=== PATIENT | male | born 1925 | race Caucasian/White ===

== ENCOUNTER 2017-02-10 16:34 | Inpatient (IN) | payer MEDICARE ==
[~2017-02-10] VITALS: Ht 170.2 cm; Wt 56.0 kg
[~2017-02-10 16:34] MED LIST: DEPA250T PO; DIOV160T60 PO; DONE5TAB14 PO; FISHCAP; PRAV20 PO; RIVA15 PO
[2017-02-10 16:42] VITALS: BP 193/91; PULSE 96; RESP 17; TEMP 98.4; O2SAT 94
[2017-02-10] MEDS ORDERED: SODIUM CHLORIDE 0.9% FLUSH 10 ML FLUSH IVF PRN (16:45)
--- NOTE | 2017-02-10 16:45 | PD ---
HPI Chief Complaint: Altered Mental Status Time Seen by Provider: 16:45 Travel History International Travel<30 days: No Contact w/Intl Traveler<30days: No Traveled to known affect area: No History of Present Illness HPI 89-year-old male presents to emergency department via EMS coming from the [facility], with reports of change in mental status. Patient has history of CVA 2 with a history of A. fib. Patient recently hospitalized at [facility] for increasing falls at home according to the note that I read. Patient reportedly has had altered mental status since yesterday. Patient has history of dementia. Patient does not respond verbally, but will respond to commands. Patient is moving all extremities, but shows pain with movement of the right shoulder. Further history is unable to be obtained from the patient himself. Patient is allergic to iodine which causes anaphylaxis. PFSH Past Medical History Hx Anticoagulant Therapy: Yes (COUMADIN DAILY) Arthritis: No Asthma: No Autoimmune Disease: No Blood Disorders: No Anxiety: No Depression: No Heart Rhythm Problems: No Cancer: Yes (PROSTATE) Cardiovascular Problems: Yes (htn on meds) High Cholesterol: Yes Chemotherapy: Yes (2014 - PROSTATE CA) Chest Pain: No Congestive Heart Failure: No COPD: No Cerebrovascular Accident: Yes (X2 LAST ONE 2 YEARS AGO) Diabetes: No (diet control) Diminished Hearing: Yes Endocrine: No Gastrointestinal Disorders: No GERD: No Genitourinary: No Headaches: No Hiatal Hernia: No Hypertension: Yes Immune Disorder: No Implanted Vascular Access Dvce: No Kidney Stones: No Musculoskeletal: No Neurologic: Yes (HX OF TIA 7 YEARS AGO) Psychiatric: No Reproductive: No Respiratory: No Immunizations Current: No Radiation Therapy: Yes Renal Failure: No Seizures: No Sickle Cell Disease: No Sleep Apnea: No Thyroid Disease: No Triglycerides - High: Yes Ulcer: No Past Surgical History Abdominal Surgery: No AICD: No Arteriovenous Shunt: No Cardiac Surgery: No Ear Surgery: No Endocrine Surgery: No Eye Surgery: Yes (R EYE CATARACT EXTRACTION) Genitourinary Surgery: No Gynecologic Surgery: No Insulin Pump: No Joint Replacement: No Neurologic Surgery: No Pacemaker: No Thoracic Surgery: No Other Surgery: Yes (VEIN STRIPPING BOTH LEGS) Social History Alcohol Use: Yes (WINE DAILY 1 GLASS DAILY) Tobacco Use: No Substance Use: No Allergies-Medications (Allergen,Severity, Reaction): Coded Allergies: Iodine (Verified Allergy, Severe, Anaphylaxis, 02/10/17) Reported Meds & Prescriptions Reported Meds & Active Scripts Active Reported Valsartan 160 Mg Tab 160 Mg PO DAILY Probiotic (Lactobacillus Acidophilus) 1 Cap Cap 1 Cap PO DAILY Pravastatin 20 Mg Tab 20 Mg PO HS Gabapentin 300 Mg Cap 300 Mg PO DAILY Donepezil 5 Mg Tab 5 Mg PO HS Depakote DR (Divalproex Sodium) 250 Mg Tabdr 250 Mg PO HS Cardizem (Diltiazem HCl) 30 Mg Tab 30 Mg PO QID Vitamin D3 (Cholecalciferol) 2,000 Unit Tab 2,000 Units PO DAILY Review of Systems ROS Limitations: Clinical Condition, Altered Mental Status, Unresponsive General / Constitutional: No: Fever Eyes: No: Visual changes HENT: No: Headaches Cardiovascular: No: Chest Pain or Discomfort Respiratory: No: Shortness of Breath Gastrointestinal: No: Abdominal Pain Genitourinary: No: Dysuria Musculoskeletal: No: Pain Skin: No Rash Neurologic: No: Weakness Psychiatric: No: Depression Endocrine: No: Polydipsia Hematologic/Lymphatic: No: Easy Bruising Physical Exam Exam Limitations: Altered Mental Status Narrative GENERAL: Patient does not appear in acute distress. SKIN: Warm and dry. Normal color. Poor turgor. Tenting present. HEAD: Atraumatic. Normocephalic. EYES: Pupils equal and round. No scleral icterus. No injection or drainage. ENT: No nasal bleeding or discharge. Mucous membranes pink and very dry. Pharynx is clear. Airway is patent. NECK: Trachea midline. No JVD. Neck is supple. CARDIOVASCULAR: Irregular rate and rhythm. No murmurs appreciated. RESPIRATORY: No accessory muscle use. Clear to auscultation. Breath sounds equal bilaterally. GASTROINTESTINAL: Abdomen soft, non-tender, nondistended. Hepatic and splenic margins not palpable. MUSCULOSKELETAL: Extremities without clubbing, cyanosis, or edema. No obvious deformities. Patient winces with pain with movement or palpation of the right anterior shoulder which does not appear dislocated or fractured, and is without significant effusion. No crepitus is appreciated. Patient also winces with pain with palpation of the left lower anterior thorax. Area is without specific signs of trauma or crepitus or deformity. NEUROLOGICAL: Awake and alert. No obvious cranial nerve deficits. Motor grossly within normal limits. Five out of 5 muscle strength in the arms and legs. Patient is nonverbal. PSYCHIATRIC: Cannot be determined based on present condition.. Data Data Last Documented VS Vital Signs Date Time Temp Pulse Resp B/P Pulse Ox O2 Delivery O2 Flow Rate FiO2 02/10/17 17:05 95 Nasal Cannula 2 02/10/17 16:42 98.4 96 17 193/91 Orders Electrocardiogram (02/10/17 16:45) Ammonia (02/10/17 16:45) Complete Blood Count With Diff (02/10/17 16:45) Comprehensive Metabolic Panel (02/10/17 16:45) Creatine Kinase (Cpk) (02/10/17 16:45) Prothrombin Time / Inr (Pt) (02/10/17 16:45) Act Partial Throm Time (Ptt) (02/10/17 16:45) Troponin I (02/10/17 16:45) Lactic Acid Sepsis Protocol (02/10/17 16:45) Urinalysis - C+S If Indicated (02/10/17 16:45) Blood Culture (02/10/17 16:45) Chest, Single Ap (02/10/17 16:45) Ct Brain W/O Iv Contrast(Rout) (02/10/17 16:45) Blood Glucose (02/10/17 16:45) Ecg Monitoring (02/10/17 16:45) Iv Access Insert/Monitor (02/10/17 16:45) Oximetry (02/10/17 16:45) Urinary Catheter Insert/Apply (02/10/17 16:45) Sodium Chloride 0.9% Flush (Ns Flush) (02/10/17 16:45) Sodium Chlorid 0.9% 500 Ml Inj (Ns 500 M (02/10/17 17:15) Shoulder, Limited(2vws) (02/10/17 17:48) Ribs, Uni (W/Exp Cxr-Min 3vw) (02/10/17 17:48) Mri Brain W/O Contrast (02/10/17 18:24) Aspirin Supp (Aspirin Supp) (02/10/17 18:45) Labs Laboratory Tests Test 02/10/17 17:00 White Blood Count 13.9 TH/MM3 Red Blood Count 5.19 MIL/MM3 Hemoglobin 15.9 GM/DL Hematocrit 44.4 % Mean Corpuscular Volume 85.5 FL Mean Corpuscular Hemoglobin 30.6 PG Mean Corpuscular Hemoglobin 35.7 % Concent Red Cell Distribution Width 13.9 % Platelet Count 273 TH/MM3 Mean Platelet Volume 7.8 FL Neutrophils (%) (Auto) 79.0 % Lymphocytes (%) (Auto) 10.5 % Monocytes (%) (Auto) 10.2 % Eosinophils (%) (Auto) 0.0 % Basophils (%) (Auto) 0.3 % Neutrophils # (Auto) 11.0 TH/MM3 Lymphocytes # (Auto) 1.5 TH/MM3 Monocytes # (Auto) 1.4 TH/MM3 Eosinophils # (Auto) 0.0 TH/MM3 Basophils # (Auto) 0.0 TH/MM3 CBC Comment DIFF FINAL Differential Comment Prothrombin Time 11.0 SEC Prothromb Time International 1.0 RATIO Ratio Activated Partial 28.7 SEC Thromboplast Time Urine Color YELLOW Urine Turbidity CLEAR Urine pH 5.5 Urine Specific [place] 1.025 Urine Protein 30 mg/dL Urine Glucose (UA) NEG mg/dL Urine Ketones 40 mg/dL Urine Occult Blood TRACE Urine Nitrite NEG Urine Bilirubin NEG Urine Urobilinogen LESS THAN 2.0 MG/DL Urine Leukocyte Esterase NEG Urine RBC 2 /hpf Urine WBC 3 /hpf Urine Mucus MOD /lpf Microscopic Urinalysis Comment CATH-CULT NOT IND Sodium Level 133 MEQ/L Potassium Level 5.0 MEQ/L Chloride Level 100 MEQ/L Carbon Dioxide Level 24.6 MEQ/L Anion Gap 8 MEQ/L Blood Urea Nitrogen 20 MG/DL Creatinine 0.97 MG/DL Estimat Glomerular Filtration 73 ML/MIN Rate Random Glucose 115 MG/DL Lactic Acid Level 1.5 mmol/L Calcium Level 8.8 MG/DL Total Bilirubin 1.0 MG/DL Aspartate Amino Transf 57 U/L (AST/SGOT) Alanine Aminotransferase 34 U/L (ALT/SGPT) Alkaline Phosphatase 77 U/L Ammonia LESS THAN 10 MCMOL/L Total Creatine Kinase 189 U/L Troponin I LESS THAN 0.02 NG/ML Total Protein 8.0 GM/DL Albumin 3.2 GM/DL [facility] Medical Decision Making Medical Screen Exam Complete: Yes Emergency Medical Condition: Yes Differential Diagnosis Sepsis. Altered mental status. Stroke. Urinary tract infection. Pneumonia. Narrative Course Patient is altered on exam. Appears very dehydrated. Labs ordered including CBC, CMP, urinalysis, cardiac panel, lactic acid. CT of the brain is ordered. Chest x-ray, x-ray of the right shoulder, and right rib x-rays. CBC shows slight leukocytosis of 13.9. CMP shows sodium 133, BUN of 20, normal creatinine of 0.97. Lactic acid is 1.5. Ammonia is less than 10. Troponin is less than 0.02 Urinalysis shows protein 30, ketones of 40, trace of occult blood, but no signs of infection. This was a catheterized specimen. Coagulation studies show PT of 11, INR 1.0. CT scan shows an evolving left VENDOR SPECIALIST stroke, as well as progressively worsening symmetric ventricular dilatation. Medical records are reviewed from [facility] which shows an MRI and CT on the fourth with no mention of possible VENDOR SPECIALIST stroke. Call was placed to Dr. French, neurology on-call, and the patient was discussed. Dr. French recommends 300 mg aspirin rectally, and MRI. 1920 hrs. call placed to the hospitalist for admission. 1930 [address] discussed with Dr. Hunt, who agreed to admit the patient. MRI pending. Consult placed for Dr. Sousa. Diagnosis Primary Impression: CVA (cerebral vascular accident) Qualified Code: I63.00 - Cerebrovascular accident (CVA) due to thrombosis of precerebral artery Admitting Information Admitting Physician Requests: Admit Condition: Stable Stef Villalpando Feb 10, 2017 16:45
[2017-02-10 16:49] VITALS: O2SAT 97
[2017-02-10] MEDS ORDERED: SODIUM CHLORID 0.9% 500 ML INJ 500 ML IV ONE (17:15)
[2017-02-10 17:31] LABS: BASOPHIL % 0.3 % (0.0-2.0); HEMATOCRIT 44.4 % (39.0-51.0); HEMO FLAGS DIFF FINAL; LYMPH % 10.5 % (9.0-44.0); LYMPHOCYTE # 1.5 TH/MM3 (1.0-4.8); MEAN CELL VOLUME 85.5 FL (80.0-100.0); MEAN CORPUSCULAR HEMOGLOBIN 30.6 PG (27.0-34.0); MEAN CORPUSCULAR HGB CONC 35.7 % (32.0-36.0); MONO % 10.2 % (0.0-8.0); PLATELET COUNT 273 TH/MM3 (150-450); RED BLOOD COUNT 5.19 MIL/MM3 (4.50-5.90); RED CELL DISTRIBUTION WIDTH 13.9 % (11.6-17.2); WHITE BLOOD COUNT 13.9 TH/MM3 (4.0-11.0)
[2017-02-10 17:36] LABS: BLOOD, URINE TRACE (NEG); GLUCOSE,URINE NEG (NEG); KETONE, URINE 40 mg/dL (NEG); MUCUS URINE MOD /lpf (OCC); NITRITE,URINE NEG (NEG); PH, URINE 5.5 (5.0-8.5); URINE COLOR YELLOW (YELLW/STRAW)
[2017-02-10 17:38] LABS: COMMENT (UR) CATH-CULT NOT IND; CULTURE IF INDICATED CATH CULTURE NOT IND
[2017-02-10 17:45] LABS: APTT (PATIENT) 28.7 SEC (24.3-30.1)
--- NOTE | 2017-02-10 17:53 | RADRPT ---
EXAM DATE/TIME: 02/10/2017 17:11 [facility] COMPARISON: CT BRAIN W/O CONTRAST, September 02, 2015, 16:27. CT BRAIN W/O CONTRAST, February 13, 2014, 16:55. INDICATIONS : Left side gaze and altered mental status. RADIATION DOSE: 69.17 CTDIvol (mGy) MEDICAL HISTORY : Stroke. SURGICAL HISTORY : Non-responsive. ENCOUNTER: Initial ACUITY: 1 day PAIN SCALE: Non-responsive LOCATION: cranial TECHNIQUE: Multiple contiguous axial images were obtained of the head. Using automated exposure control and adj ustment of the mA and/or kV according to patient size, radiation dose was kept as low as reasonably a chievable to obtain optimal diagnostic quality images. FINDINGS: There is an evolving stroke in the left CROSS ENTERPRISE INTEGRATOR territory with edema present in the left temporal and occ ipital regions. There is mild effacement of local cortical sulci. Small old stroke is present in the contralateral right occipital region and in the high convexity right parietal region. There has been continued interval progression of symmetric ventricular dilatation this finding has progressed signif icantly from the 2013 CT and then again from the 2014 CT. There is mild diminished attenuation in the periventricular white matter which is also more pronounced. There is no evidence of intracranial hemorrhage at present. There has been development of some mild disease in the left mastoid air cells. CONCLUSION: Evolving left CROSS ENTERPRISE INTEGRATOR stroke. Progressively worsening symmetric ventricular dilatation. Dayron Neely MD on February 10, 2017 at 17:46 Board Certified Radiologist. This report was verified electronically.
[2017-02-10 18:11] LABS: ALKALINE PHOSPHATASE 77 U/L (45-117); ALT (GPT) 34 U/L (12-78); ANION GAP 8 MEQ/L (5-15); AST (GOT) 57 U/L (15-37); BICARBONATE 24.6 MEQ/L (21.0-32.0); BLOOD UREA NITROGEN 20 MG/DL (7-18); CHLORIDE 100 MEQ/L (98-107); CREATINE KINASE 189 U/L (39-308); GLOMERULAR FILTRATION RATE 73 ML/MIN (>89); SODIUM (NA) 133 MEQ/L (136-145)
[2017-02-10] MEDS ORDERED: DONE5TAB7 PO (18:29)
[2017-02-10] MEDS ORDERED: LACTCAP8 PO (18:29)
[2017-02-10] MEDS ORDERED: GABA300C5 PO (18:29)
[2017-02-10] MEDS ORDERED: DILT31TA PO (18:29)
[2017-02-10] MEDS ORDERED: PRAV20TA2 PO (18:29)
[2017-02-10] MEDS ORDERED: VITA200012 PO (18:29)
[2017-02-10] MEDS ORDERED: VALS1TAB65 PO (18:29)
[2017-02-10] MEDS ORDERED: DEPA250T2 PO (18:29)
[2017-02-10] MEDS ORDERED: ASPIRIN 300 MG SUPP RECTAL ONE (18:45)
--- NOTE | 2017-02-10 18:47 | RADRPT ---
EXAM DATE/TIME: 02/10/2017 18:11 [facility] COMPARISON: No previous studies available for comparison. INDICATIONS : Patient fell at [facility]. Complains of left rib pain. MEDICAL HISTORY : Hypertension. 2 strokes. SURGICAL HISTORY : None. ENCOUNTER: Initial ACUITY: 1 day PAIN SCORE: Non-responsive. LOCATION: Left Ribs FINDINGS: Multiple views of the left ribs were performed. There is no evidence of displaced acute fracture. T here appears to be at chronic healed fracture deformity at the left eighth through 10th ribs. No dest ructive lesions or areas of acute periosteal thickening are seen. Expiratory view of the chest is ne gative for pneumothorax. The mediastinal structures are midline. There is a high riding left erick l head. Spurring is seen in the thoracic spine. CONCLUSION: No acute fracture is seen. Dayron Masters MD on February 10, 2017 at 18:42 Board Certified Radiologist. This report was verified electronically.
--- NOTE | 2017-02-10 18:56 | RADRPT ---
EXAM DATE/TIME: 02/10/2017 18:11 [facility] COMPARISON: CHEST SINGLE AP, September 02, 2015, 16:55. EXTERNAL COMPARISON : [facility] INDICATIONS : Patient fell at [facility] and complains of left flank pain. Possible syncopal episode. MEDICAL HISTORY : Hypertension. 2 strokes. SURGICAL HISTORY : None. ENCOUNTER: Initial ACUITY: 1 week PAIN SCORE: Non-responsive. LOCATION: chest FINDINGS: Lungs are focally clear. No pleural effusion is identified. Cardiomediastinal contours are satisfacto ry. The left humeral head is significant high riding concerning for rotator cuff pathology. There are degenerative changes. CONCLUSION: No acute cardiopulmonary disease Dayron Neely MD on February 10, 2017 at 18:53 Board Certified Radiologist. This report was verified electronically.
--- NOTE | 2017-02-10 18:56 | RADRPT ---
EXAM DATE/TIME: 02/10/2017 18:17 [facility] COMPARISON: No previous studies available for comparison. EXTERNAL COMPARISON : [facility] INDICATIONS : Patient fell at [facility] 1 week ago. Complains of right shoulder pain. MEDICAL HISTORY : Hypertension. 2 strokes. SURGICAL HISTORY : None. ENCOUNTER: Initial ACUITY: 1 week PAIN SCORE: Non-responsive. LOCATION: Right Shoulder FINDINGS: Two view examination of the right shoulder demonstrates no evidence of fracture or dislocation. The glenohumeral and acromioclavicular joints are maintained. Bony mineralization is normal. CONCLUSION: No acute disease. Dayron Masters MD on February 10, 2017 at 18:54 Board Certified Radiologist. This report was verified electronically.
--- NOTE | 2017-02-10 19:24 | PD ---
Data Data Last Documented VS Vital Signs Date Time Temp Pulse Resp B/P Pulse Ox O2 Delivery O2 Flow Rate FiO2 02/10/17 17:05 95 Nasal Cannula 2 02/10/17 16:42 98.4 96 17 193/91 Orders Electrocardiogram (02/10/17 16:45) Ammonia (02/10/17 16:45) Complete Blood Count With Diff (02/10/17 16:45) Comprehensive Metabolic Panel (02/10/17 16:45) Creatine Kinase (Cpk) (02/10/17 16:45) Prothrombin Time / Inr (Pt) (02/10/17 16:45) Act Partial Throm Time (Ptt) (02/10/17 16:45) Troponin I (02/10/17 16:45) Lactic Acid Sepsis Protocol (02/10/17 16:45) Urinalysis - C+S If Indicated (02/10/17 16:45) Blood Culture (02/10/17 16:45) Chest, Single Ap (02/10/17 16:45) Ct Brain W/O Iv Contrast(Rout) (02/10/17 16:45) Blood Glucose (02/10/17 16:45) Ecg Monitoring (02/10/17 16:45) Iv Access Insert/Monitor (02/10/17 16:45) Oximetry (02/10/17 16:45) Urinary Catheter Insert/Apply (02/10/17 16:45) Sodium Chloride 0.9% Flush (Ns Flush) (02/10/17 16:45) Sodium Chlorid 0.9% 500 Ml Inj (Ns 500 M (02/10/17 17:15) Shoulder, Limited(2vws) (02/10/17 17:48) Ribs, Uni (W/Exp Cxr-Min 3vw) (02/10/17 17:48) Mri Brain W/O Contrast (02/10/17 18:24) Aspirin Supp (Aspirin Supp) (02/10/17 18:45) Labs Laboratory Tests Test 02/10/17 17:00 White Blood Count 13.9 TH/MM3 Red Blood Count 5.19 MIL/MM3 Hemoglobin 15.9 GM/DL Hematocrit 44.4 % Mean Corpuscular Volume 85.5 FL Mean Corpuscular Hemoglobin 30.6 PG Mean Corpuscular Hemoglobin 35.7 % Concent Red Cell Distribution Width 13.9 % Platelet Count 273 TH/MM3 Mean Platelet Volume 7.8 FL Neutrophils (%) (Auto) 79.0 % Lymphocytes (%) (Auto) 10.5 % Monocytes (%) (Auto) 10.2 % Eosinophils (%) (Auto) 0.0 % Basophils (%) (Auto) 0.3 % Neutrophils # (Auto) 11.0 TH/MM3 Lymphocytes # (Auto) 1.5 TH/MM3 Monocytes # (Auto) 1.4 TH/MM3 Eosinophils # (Auto) 0.0 TH/MM3 Basophils # (Auto) 0.0 TH/MM3 CBC Comment DIFF FINAL Differential Comment Prothrombin Time 11.0 SEC Prothromb Time International 1.0 RATIO Ratio Activated Partial 28.7 SEC Thromboplast Time Urine Color YELLOW Urine Turbidity CLEAR Urine pH 5.5 Urine Specific [place] 1.025 Urine Protein 30 mg/dL Urine Glucose (UA) NEG mg/dL Urine Ketones 40 mg/dL Urine Occult Blood TRACE Urine Nitrite NEG Urine Bilirubin NEG Urine Urobilinogen LESS THAN 2.0 MG/DL Urine Leukocyte Esterase NEG Urine RBC 2 /hpf Urine WBC 3 /hpf Urine Mucus MOD /lpf Microscopic Urinalysis Comment CATH-CULT NOT IND Sodium Level 133 MEQ/L Potassium Level 5.0 MEQ/L Chloride Level 100 MEQ/L Carbon Dioxide Level 24.6 MEQ/L Anion Gap 8 MEQ/L Blood Urea Nitrogen 20 MG/DL Creatinine 0.97 MG/DL Estimat Glomerular Filtration 73 ML/MIN Rate Random Glucose 115 MG/DL Lactic Acid Level 1.5 mmol/L Calcium Level 8.8 MG/DL Total Bilirubin 1.0 MG/DL Aspartate Amino Transf 57 U/L (AST/SGOT) Alanine Aminotransferase 34 U/L (ALT/SGPT) Alkaline Phosphatase 77 U/L Ammonia LESS THAN 10 MCMOL/L Total Creatine Kinase 189 U/L Troponin I LESS THAN 0.02 NG/ML Total Protein 8.0 GM/DL Albumin 3.2 GM/DL MDM Supervised Visit with MAGALY: Yes Narrative Course The history, exam, and medical decision-making in the associated midlevel provider note were completed with my assistance. I reviewed and agree with the findings presented. I attest that I had a [id number] encounter with the patient on the same day, and personally performed and documented my assessment and findings in the medical record. *My assessment and Findings: This is an 89-year-old male who presents to the emergency department with a history of dementia who evidently has had a rapid decline that started yesterday. He had an MRI within the past week in the setting of frequent falls at an outside hospital which was reassuring. His reports that currently he is nonverbal which is abnormal for him. Patient follows some commands and moves all extremities but is completely aphasic. Labs were obtained which were reassuring. 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 The case was discussed with the on-call neurologist who requested a stat MRI. Patient will be admitted. Patient is likely not a TPA candidate given onset of symptoms was 24 hours ago. Valentine Arredondo MD Feb 10, 2017 19:24
[2017-02-10] MEDS ORDERED: LORazepam 2 MG/ML VIAL IV PUSH ONE (19:45)
--- NOTE | 2017-02-10 19:50 | HHI.HP ---
HPI Service [facility] Primary Care Physician Minor Saleh MD Admission Diagnosis CVA Diagnoses: (1) CVA (cerebral vascular accident) Diagnosis: Principal (2) A-fib Diagnosis: Principal (3) HTN (hypertension) Diagnosis: Principal Travel History International Travel<30 Days: No Contact w/Intl Traveler <30 Da: No Traveled to Known Affected Are: No History of Present Illness This is an 89-year-old male with a PMH of HTN, A. fib, Prostate CA and Hyperlipidemia who since the ER from [facility] secondary to worsening mental status. Per report, pt last seen normal on 02/09/17 at unknown time, today pt noted to have decline in mental status, right-sided weakness and aphasia. History limited as pt remains non-verbal and unable to provide details. Per reports, pt w/ recent hospitalization at [facility] for recurrent falls and deconditioning. CT Head/MRI Brain w/ no acute CVA per hospital records (in chart). Was d/c'd to [facility] for Rehab. On arrival, BP 218/ 94, HR 106, O2 sat 99% on RA, Afebrile. WBC 13.9. Chemistry with GFR 73 lactic Acid 1.5. Troponin negative. INR 1.0. UA negative. CT Head with evolving left HIGHWALL DRILL OPERATOR stroke, progressively worsening symmetric ventricular dilatation. CXR with no acute findings. Shoulder X-ray negative. Rib X-ray no acute fracture. Dr. French consulted by ER physician, recommended MRI Brain and ASA 300mg NV. Review of Systems Except as stated in HPI: all other systems reviewed are Neg ROS: Unable to obtain secondary to aphasia. Past Family Social History Past Medical History PMH: HTN, A. fib, Prostate CA and Hyperlipidemia Past Surgical History PAST SURGICAL HISTORY: Right Cataract Surgery, Bilateral Vein Stripping Allergies: Coded Allergies: Iodine (Verified Allergy, Severe, Anaphylaxis, 02/10/17) Family History PAST FAMILY HISTORY: Reviewed. No h/o DM or CAD Social History PAST SOCIAL HISTORY: Drinks one glass of wine daily. Negative for tobacco or drugs Physical Exam Vital Signs Vital Signs Date Time Temp Pulse Resp B/P Pulse Ox O2 Delivery O2 Flow Rate FiO2 02/10/17 17:05 95 Nasal Cannula 2 02/10/17 16:49 97 Nasal Cannula 2 02/10/17 16:42 98.4 96 17 193/91 94 Physical Exam PE: GENERAL: Elderly male in no acute distress. HEENT: PERRLA, EOMI. No scleral icterus or conjunctival pallor. No lid lag or facial droop. CARDIOVASCULAR: Regular rate and rhythm. No obvious murmurs to auscultation. No chest tenderness to palpation. RESPIRATORY: No obvious rhonchi or wheezing. Clear to auscultation. Breath sounds equal bilaterally. GASTROINTESTINAL: Abdomen soft, non-tender, nondistended. BS normal. MUSCULOSKELETAL: Extremities without clubbing, cyanosis, or edema. No obvious deformities. Right shoulder tenderness to palpation NEUROLOGICAL: Awake, alert, nonverbal, follows simple commands. No focal neurologic deficits. Moving both upper and lower extremities spontaneously. Laboratory Laboratory Tests Test 02/10/17 17:00 White Blood Count 13.9 Red Blood Count 5.19 Hemoglobin 15.9 Hematocrit 44.4 Mean Corpuscular Volume 85.5 Mean Corpuscular Hemoglobin 30.6 Mean Corpuscular Hemoglobin 35.7 Concent Red Cell Distribution Width 13.9 Platelet Count 273 Mean Platelet Volume 7.8 Neutrophils (%) (Auto) 79.0 Lymphocytes (%) (Auto) 10.5 Monocytes (%) (Auto) 10.2 Eosinophils (%) (Auto) 0.0 Basophils (%) (Auto) 0.3 Neutrophils # (Auto) 11.0 Lymphocytes # (Auto) 1.5 Monocytes # (Auto) 1.4 Eosinophils # (Auto) 0.0 Basophils # (Auto) 0.0 CBC Comment DIFF FINAL Differential Comment Prothrombin Time 11.0 Prothromb Time International 1.0 Ratio Activated Partial 28.7 Thromboplast Time Urine Color YELLOW Urine Turbidity CLEAR Urine pH 5.5 Urine Specific [place] 1.025 Urine Protein 30 Urine Glucose (UA) NEG Urine Ketones 40 Urine Occult Blood TRACE Urine Nitrite NEG Urine Bilirubin NEG Urine Urobilinogen LESS THAN 2.0 Urine Leukocyte Esterase NEG Urine RBC 2 Urine WBC 3 Urine Mucus MOD Microscopic Urinalysis Comment CATH-CULT NOT IND Sodium Level 133 Potassium Level 5.0 Chloride Level 100 Carbon Dioxide Level 24.6 Anion Gap 8 Blood Urea Nitrogen 20 Creatinine 0.97 Estimat Glomerular Filtration 73 Rate Random Glucose 115 Lactic Acid Level 1.5 Calcium Level 8.8 Total Bilirubin 1.0 Aspartate Amino Transf 57 (AST/SGOT) Alanine Aminotransferase 34 (ALT/SGPT) Alkaline Phosphatase 77 Ammonia LESS THAN 10 Total Creatine Kinase 189 Troponin I LESS THAN 0.02 Total Protein 8.0 Albumin 3.2 Date/Time Procedure Status Source Growth 02/10/17 17:05 Aerobic Blood Culture Received Blood Peripheral Pending 02/10/17 17:05 Anaerobic Blood Culture Received Blood Peripheral Pending Result Diagram: 02/10/17 1700 02/10/17 1700 Assessment and Plan Problem List: (1) CVA (cerebral vascular accident) ICD Code: I63.9 Status: Acute (2) HTN (hypertension) ICD Code: I10 Status: Acute (3) Shoulder pain ICD Code: M25.519 Status: Acute (4) A-fib ICD Code: I48.91 Status: Acute Assessment and Plan A/P: 1. CVA: per report, pt last seen normal 02/09/17, today noted to have right- sided weakness and aphasia. CT Head w/ evolving Left HIGHWALL DRILL OPERATOR infarct, images reviewed by me. Dr. French consulted by ER physician, recommends ASA 300mg NV and MRI Brain, MRI w/ areas of subacute infarct in Left HIGHWALL DRILL OPERATOR, infarct of Left Thalamus and Right Inferior Cerebellar Hemisphere w/ possible areas of petechial hemorrhage in left occipital lobe and left thalamus, images reviewed by me. Hold ASA in light of possible petechial hemorrhage. Neurology to follow. Neuro checks. PT/OT/Speech for eval/tx. NPO, IVF. 2. HTN: BP 218/94, HR 106 on arrival, currently 147/70, HR 94, will monitor, permissive HTN in light of CVA. 3. Shoulder Pain: h/o recurrent falls w/ recent admit to [facility], +grimaces w/ palpation of right shoulder, Shoulder X-ray negative for fracture, images reviewed by me. Analgesics as needed. 4. A-fib: Chronic. Per records, on Coumadin, however not on anticoagulation per review of medication list. Check Echo for possible embolic event. 5. DVT Prophylaxis: SCD/Teds. 6. Social work for d/c planning as needed. 7. Case discussed w/ ER physician at length. Physician Certification 2 Midnight Certification Type: Admission for Inpatient Services Order for Inpatient Services The services are ordered in accordance with Medicare regulations or non- Medicare payer requirements, as applicable. In the case of services not specified as inpatient-only, they are appropriately provided as inpatient services in accordance with the 2-midnight benchmark. Estimated LOS (days): 2 days is the estimated time the patient will need to remain in the hospital, assuming treatment plan goals are met and no additional complications. Post-Hospital Plan: Not yet determined Problem Qualifiers (1) CVA (cerebral vascular accident): Qualified Code: I63.00 - Cerebrovascular accident (CVA) due to thrombosis of precerebral artery Madelin Clarke MD Feb 10, 2017 19:50
[2017-02-10 20:00] VITALS: O2SAT 99
[2017-02-10] MEDS ORDERED: GLUCAGON 1 MG/ML VIAL IM/SQ PRN (20:00)
[2017-02-10] MEDS ORDERED: LORazepam 2 MG/ML VIAL IV PUSH PRN (20:00)
[2017-02-10] MEDS ORDERED: DEXTROSE 50% IN WATER 50 ML VIAL(D50) IV PUSH PRN (20:00)
[2017-02-10] MEDS: SODIUM CHLORIDE 0.9% FLUSH 10 ML FLUSH IV FLUSH SCH (20:24)
[2017-02-10] MEDS: SODIUM CHLOR 0.9% 1000 ML INJ 1,000 ML IV SCH (20:25)
[2017-02-10 20:26] VITALS: BP 218/94; PULSE 106; RESP 21; O2SAT 99
[2017-02-10] MEDS: ENALAPRILAT 1.25 MG/ML VIAL IV PRN (20:35)
--- NOTE | 2017-02-10 20:36 | RADRPT ---
EXAM DATE/TIME: 02/10/2017 19:30 [facility] COMPARISON: CT BRAIN W/O CONTRAST, February 10, 2017, 17:11. MRI BRAIN W/O CONTRAST, February 14, 2014, 8:46. INDICATIONS : Altered mental status. MEDICAL HISTORY : Hypertension. Hypercholesterolemia. Dementia. SURGICAL HISTORY : None. ENCOUNTER: Initial ACUITY: 1 day PAIN SCORE: 0/10 LOCATION: Cranial TECHNIQUE: Multiplanar, multisequence MRI of the brain was performed without contrast. FINDINGS: There is dilatation of the ventricular system and cortical sulci. There are areas of s uspected subacute infarction involving the medial left temporal lobe, left occipital lobe, left thala mus and right inferior cerebellar hemispheres. These areas are seen as abnormal on the diffusion nickie ghted images and the T2 weighted images suggesting they are subacute. There is some focal low signal seen on the gradient echo sequence at the left thalamus and in the left occipital lobe. These small areas of low signal on the gradient echo sequences could be from areas of calcification or small are as of hemorrhage. Signal abnormalities seen in these focal regions to confirm a hemorrhage is not se en on other sequences. No abnormal density was seen on the CT examination. This may represent some sm all petechial hemorrhage. Significant midline shift is not clearly appreciated. The basal cisterns are open. There are some scattered punctate areas of increased signal seen in the cerebral white mat ter on the FLAIR images. CONCLUSION: 1. Areas of subacute infarction involving the left posterior cerebral artery including the medial lef t temporal lobe and the left occipital lobe. There is also an area of infarction involving the left thalamus and the right inferior cerebellar hemisphere. There appear to be possible small areas of pe techial hemorrhage in the left occipital lobe and left thalamus. 2. Underlying edema. There is also underlying suspected small vessel ischemic change in the white ma tter with scattered areas of focal demyelination seen. Dayron Masters MD on February 10, 2017 at 20:18 Board Certified Radiologist. This report was verified electronically.
[2017-02-10] MEDS: INSULIN ASPART SUPPLEMENTAL SCALE SQ SCH (21:00)
[2017-02-10 21:22] VITALS: BP 185/88; PULSE 101; RESP 24; O2SAT 97
[2017-02-10] MEDS ORDERED: MORPHINE SULFATE 4 MG/ML INJ IV PUSH PRN (21:30)
[2017-02-10 21:54] VITALS: BP 147/70; PULSE 94; RESP 17; O2SAT 99
[2017-02-10] MEDS: MORPHINE SULFATE 4 MG/ML INJ IV PUSH PRN (21:54)
[2017-02-10] MEDS: SODIUM CHLORIDE 0.9% FLUSH 10 ML FLUSH IV FLUSH PRN (23:35)
[2017-02-11] VITALS (8 sets, daily range): BP systolic 146–227; BP diastolic 74–100; PULSE 81–106; RESP 16–22; TEMP 96–100.3; O2SAT 93–99
[2017-02-11] MEDS ORDERED: ACETAMINOPHEN 500 MG CPLT PO PRN (04:45)
[2017-02-11] MEDS: ENALAPRILAT 1.25 MG/ML VIAL IV PRN (05:15)
[2017-02-11] MEDS: MORPHINE SULFATE 4 MG/ML INJ IV PUSH PRN (05:15)
[2017-02-11] MEDS: SODIUM CHLORIDE 0.9% FLUSH 10 ML FLUSH IV FLUSH PRN (05:16)
[2017-02-11] MEDS: INSULIN ASPART SUPPLEMENTAL SCALE SQ SCH ×4 (05:26→21:00)
[2017-02-11] MEDS: ACETAMINOPHEN 650 MG SUPP RECTAL PRN (06:32)
[2017-02-11 07:41] LABS: HDL CHOLESTEROL 54.6 MG/DL (40.0-60.0); LDL CHOLESTEROL 61 MG/DL (0-99)
[2017-02-11] MEDS ORDERED: ASPIRIN 300 MG SUPP RECTAL SCH (09:00)
[2017-02-11 13:11] LABS: HEMOGLOBIN A1a 0.8 %; HEMOGLOBIN A1b 1.9 %; HEMOGLOBIN Ao 84.9 %; HEMOGLOBIN LA1C 2.1 %; HEMOGLOBIN P3 5.5 %
--- NOTE | 2017-02-11 14:09 | HHI.PR ---
Subjective Remarks Discussed with RN, per physical therapy the patient appear to have discomfort with any movement of the right elbow joint. Patient is aphasic, can follow some commands. Objective Vitals Vital Signs Date Time Temp Pulse Resp B/P Pulse Ox O2 Delivery O2 Flow Rate FiO2 02/11/17 08:00 98.4 83 18 146/74 96 02/11/17 04:00 100.1 96 20 227/92 98 02/11/17 00:30 98.0 102 20 153/94 99 02/11/17 00:00 99.3 95 18 179/84 93 02/10/17 21:54 94 17 147/70 99 Nasal Cannula 3 02/10/17 21:22 101 24 185/88 97 Nasal Cannula 3 02/10/17 20:26 106 21 218/94 99 Nasal Cannula 3 02/10/17 20:00 99 Nasal Cannula 3.00 02/10/17 17:05 95 Nasal Cannula 2 02/10/17 16:49 97 Nasal Cannula 2 02/10/17 16:42 98.4 96 17 193/91 94 I/O 02/10/17 02/10/17 02/10/17 02/11/17 02/11/17 02/11/17 07:00 15:00 23:00 07:00 15:00 23:00 Output Total 500 ml Balance -500 ml Output Urine Total 500 ml # Bowel Movements 0 Result Diagram: 02/10/17 1700 02/10/17 1700 Imaging Last Impressions Brain MRI 02/10/17 1824 Signed Impressions: Service Date/Time: Friday, February 10, 2017 19:30 - CONCLUSION: 1. Areas of subacute infarction involving the left posterior cerebral artery including the medial left temporal lobe and the left occipital lobe. There is also an area of infarction involving the left thalamus and the right inferior cerebellar hemisphere. There appear to be possible small areas of petechial hemorrhage in the left occipital lobe and left thalamus. 2. Underlying edema. There is also underlying suspected small vessel ischemic change in the white matter with scattered areas of focal demyelination seen. Dayron Masters MD Shoulder X-Ray 02/10/171747 Signed Impressions: Service Date/Time: Friday, February 10, 2017 18:17 - CONCLUSION: No acute disease. Dayron Masters MD Ribs X-Ray 02/10/171747 Signed Impressions: Service Date/Time: Friday, February 10, 2017 18:11 - CONCLUSION: No acute fracture is seen. Dayron Masters MD Head CT 02/10/17 1641 Signed Impressions: Service Date/Time: Friday, February 10, 2017 17:11 - CONCLUSION: Evolving left CRAY FISHING HAND stroke. Progressively worsening symmetric ventricular dilatation. Dayron Neely MD Chest X-Ray 02/10/175 Signed Impressions: Service Date/Time: Friday, February 10, 2017 18:11 - CONCLUSION: No acute cardiopulmonary disease Dayron Neely MD Objective Remarks GENERAL: Frail elderly male lying in bed. Awake and alert but unable to communicate. Can follow some commands CARDIOVASCULAR: Normal rate and regular rhythm without murmurs, gallops, or rubs. RESPIRATORY: Breath sounds equal and clear to auscultation bilaterally. GASTROINTESTINAL: Abdomen soft, non-tender, non-distended. Normal active bowel sounds MUSCULOSKELETAL: Extremities without cyanosis, or edema. Right medial con NEURO: Exam limited due to the patient's condition and limited ability to follow commands. Awake and alert. Aphasic. Can move all extremities but generally weak. Cannot appreciate focal weakness except for significant limitation of the right elbow due to pain. PSYCH: Calm A/P Problem List: (1) CVA (cerebral vascular accident) ICD Code: I63.9 Status: Acute (2) HTN (hypertension) ICD Code: I10 Status: Acute (3) Shoulder pain ICD Code: M25.519 Status: Acute (4) A-fib ICD Code: I48.91 Status: Acute Assessment and Plan 89-year-old detention resident admitted with: 1. CVA: per report, pt last seen normal 02/09/17, on the day of admission 02/10/17 , patient was noted to have right-sided weakness and aphasia. CT Head w/ evolving Left CRAY FISHING HAND infarct. Dr. French consulted by ER physician, recommends ASA 300mg CA and MRI Brain, MRI w/ areas of subacute infarct in Left CRAY FISHING HAND, infarct of Left Thalamus and Right Inferior Cerebellar Hemisphere w/ possible areas of petechial hemorrhage in left occipital lobe and left thalamus, images reviewed by me. Hold ASA in light of possible petechial hemorrhage. Neurology to follow. Neuro checks. PT/OT/Speech for eval/tx. NPO, IVF. 2. HTN: BP 218/94, HR 106 on arrival, Permissive HTN in light of CVA. Vasotec PRN 3. Right upper extremity pain: Shoulder pain in the ED. H/o recurrent falls w / recent admit to [facility], +grimaces w/ palpation of right shoulder, Shoulder X-ray negative for fracture, apparently he is having more pain on the right elbow. Will obtain x-ray to rule out fractures. 4. A-fib: Chronic. Per records, previously on Coumadin, however not on anticoagulation per review of medication list, may be due to recurrent falls. Currently in sinus rhythm. Check Echo for possible embolic event. 5. DVT Prophylaxis: SCD/Teds. Problem Qualifiers (1) CVA (cerebral vascular accident): Qualified Code: I63.00 - Cerebrovascular accident (CVA) due to thrombosis of precerebral artery Ray Parker MD Feb 11, 2017 14:09
--- NOTE | 2017-02-11 14:31 | RADRPT ---
EXAM DATE/TIME: 02/11/2017 13:23 [facility] COMPARISON: No previous studies available for comparison. INDICATIONS : Right elbow pain. MEDICAL HISTORY : None. SURGICAL HISTORY : None. ENCOUNTER: Initial ACUITY: 1 day PAIN SCORE: Non-responsive. LOCATION: Right elbow. FINDINGS: Multiple view examination of the right elbow demonstrates no soft tissue swelling, joint effusion, or fracture. There are extensive degenerative changes identified within the elbow joint. The osseous st ructures are in normal alignment. Bony mineralization is normal. CONCLUSION: Extensive degenerative changes. No evidence of fracture or joint effusion.. Codi Garcia MD on February 11, 2017 at 14:29 Board Certified Radiologist. This report was verified electronically.
--- NOTE | 2017-02-11 14:35 | EKG ---
Date Performed: 02/10/2017 Time Performed: 16:46:14 PTAGE: 89 years EKG: Sinus rhythm NONSPECIFIC ST & T-WAVE ABNORMALITY Compared to prior tracing no significant change BORDERLINE ECG PREVIOUS TRACING : 09/02/2015 16.10 DOCTOR: Heriberto Burgess Interpretating Date/Time 02/11/2017 14:33:26
--- NOTE | 2017-02-11 18:31 | RADRPT ---
EXAM DATE/TIME: 02/11/2017 17:50 [facility] COMPARISON: MRI BRAIN W/O CONTRAST, February 10, 2017, 19:30. MRA BRAIN W/O CONTRAST, February 14, 2014, 8:46. INDICATIONS : Altered mental status. Left sdie gaze. MEDICAL HISTORY : Hypercholesterolemia. Diabetes mellitus type 2. Hypertension. SURGICAL HISTORY : None. ENCOUNTER: Initial ACUITY: 2 day PAIN SCORE: 0/10 LOCATION: cranial Please note a normal MRA of the brain does not entirely exclude the possibility of a small aneurysm, nor the possibility of distal intracranial vessel disease. TECHNIQUE: 3D time of flight MRA was performed. Source images, multiplanar STS MIP, and 3D volume MIP reconstru ctions were reviewed. FINDINGS: There is excellent visualization of the major intracranial arteries out to the second-order branch ve ssels. There is no evidence for aneurysm, vessel truncation or stenosis, and no evidence for vascula r malformation. There is a patent right posterior commuting artery. No significant change compared to the prior exam. CONCLUSION: Stable and unremarkable MRA of the [place]. Cosme Wolf MD on February 11, 2017 at 18:27 Board Certified Radiologist. This report was verified electronically.
[2017-02-11] MEDS: SODIUM CHLORIDE 0.9% FLUSH 10 ML FLUSH IV FLUSH SCH (21:10)
--- NOTE | 2017-02-11 21:49 | MB ---
cc: MARCELO LUU M.D. DATE OF CONSULTATION 02/11/17 DATE OF 1925 AGE [id number]. REASON FOR CONSULTATION Stroke. HISTORY OF PRESENT ILLNESS The patient's history is taken from the chart and from the . He has a history of hypertension, questionable atrial fibrillation, prostate cancer, hyperlipidemia, was sent from [facility] for worsening mental status. Apparently, last seen normal on 02/09, however, his states that they were at the other hospital. I am not sure if that was [facility]. Apparently, imaging was unremarkable per records but she states that they told her he had two small clots. He was not alert when the sent him to [facility]. His CT showed evolving left CAR KNOCKER stroke. I was contacted yesterday and told them to do an MRI. The MRI now confirms what appears to be in the area of subacute infarct in the left posterior cerebral arteries including the medial left temporal, left occipital lobe, also left thalamus, right inferior cerebellar hemisphere with a possible small area of petechial hemorrhage in the left occipital lobes and left thalamus. There is some underlying edema and also some white matter disease. The patient is still lethargic, arousable, nonverbal, follows simple commands intermittently. ALLERGIES ALLERGIC TO IODINE. PHYSICAL EXAMINATION VITAL SIGNS: Temperature is 96, heart rate 81, respiratory rate 20, blood pressure 179/81. NECK: Neck is supple. I do not appreciate any bruises. HEART: Slightly tachycardia. LUNGS: Lungs are clear. NEURO: He is arousable, opens his eyes briefly, looks about. No significant facial asymmetry. No ptosis. Pupils are pinpoint. 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 Left hand strength is intact. Not really following commands in the legs, just some withdrawal. DTRs are 1+. Gait cannot be assessed. Sensory does feel pain in the right arm. IMAGING STUDIES As stated. He had an elbow x-ray degenerate changes. No effusion or fracture. X-ray of the ribs no fracture. Chest x-ray yesterday no acute disease. LABORATORY DATA White count 13.9, neutrophils 79%. Coag panel is unremarkable. Chemistries, hemoglobin A1c 5.7, triglycerides 76, cholesterol 131, LDL 61, HDL 54.6, AST 57. Urine moderate mucus. Cultures thus far negative for growth. IMPRESSION An 89-year-old man with a large left posterior cerebral artery distribution stroke with findings of a right cerebellar hemisphere stroke as well, may be due to atrial fibrillation, however, at this point in time he needs more extensive workup. He will need an MRA of the carotids and [place], a 2-D echo. He is n.p.o. I think we can start him on a baby aspirin. I would not anticoagulate him but I would use subcu Lovenox or heparin for DVT prophylaxis. Try not to sedate him. PT, OT, speech therapy. I do not feel comfortable with the size of his stroke keeping him on a regular floor since he is a full code I would recommend the next 24-48 hours transfer to the ICU for close neuro monitoring in the event he progresses or there is more edema or respiration is a factor he will need to be intubated for airway protection. Will try to consult the hospitalist is to notify him, however, recommend that he go to a unit. MD SHERRI Ponce/THI /5:11 PM /9:35 PM
[2017-02-12] VITALS (14 sets, daily range): BP systolic 150–194; BP diastolic 69–91; PULSE 74–97; RESP 14–24; TEMP 97.4–101.2; O2SAT 90–100
[2017-02-12] MEDS: SODIUM CHLOR 0.9% 1000 ML INJ 1,000 ML IV SCH ×2 (00:22→11:23)
[2017-02-12] MEDS ORDERED: CHLORHEXIDINE GLUCONATE 2 % 1 PACK (2 CLOTHS)(extra cloths) TOPICAL PRN (00:30)
[2017-02-12] MEDS: CHLORHEXIDINE GLUCONATE 2 % 1 PACK (2 CLOTHS)(taper/protocol) TOPICAL SCH (04:00)
[2017-02-12 05:17] LABS: HEMATOCRIT 39.5 % (39.0-51.0); MEAN CELL VOLUME 86.1 FL (80.0-100.0); MEAN CORPUSCULAR HEMOGLOBIN 30.1 PG (27.0-34.0); PLATELET COUNT 234 TH/MM3 (150-450); RED BLOOD COUNT 4.59 MIL/MM3 (4.50-5.90); RED CELL DISTRIBUTION WIDTH 13.6 % (11.6-17.2); REVIEW FLAG FINAL; WHITE BLOOD COUNT 18.6 TH/MM3 (4.0-11.0)
[2017-02-12 05:25] LABS: BICARBONATE 22.7 MEQ/L (21.0-32.0); POTASSIUM 3.3 MEQ/L (3.5-5.1)
[2017-02-12] MEDS: INSULIN ASPART SUPPLEMENTAL SCALE SQ SCH ×4 (07:00→21:00)
[2017-02-12] MEDS: ASPIRIN 300 MG SUPP RECTAL SCH (07:47)
[2017-02-12] MEDS: SODIUM CHLORIDE 0.9% FLUSH 10 ML FLUSH IV FLUSH SCH ×2 (07:47→21:04)
[2017-02-12] MEDS ORDERED: POTASSIUM CHLOR 20 MEQ PREMIX 100 ML IV ONE (09:00)
--- NOTE | 2017-02-12 12:33 | RADRPT ---
EXAM DATE/TIME: 02/12/2017 10:21 [facility] COMPARISON: US CAROTID ARTERIES, March 05, 2012, 11:07. INDICATIONS : Cerebrovascular accident. MEDICAL HISTORY : Hypercholesterolemia. Hypertension. TIA. CVA. Numbness. Anticoagulant therapy, Coumadin. Diabetes.P rostate cancer. Chemotherapy. SURGICAL HISTORY : Cataract removal. Vein stripping, bilateral legs. ENCOUNTER: Subsequent ACUITY: 1 day PAIN SCORE: Nonresponsive. LOCATION: Bilateral neck PEAK SYSTOLIC VELOCITIES (cm/sec): ICA/CCA RATIO: Right: 1.1 Left: 0.7 ICA: Right: 98 Left: 66 CCA: Right: 90 Left: 94 ECA: Right: 213 Left: 80 VERTEBRAL: Right: 57 antegrade Left: 53 antegrade Elevated flow velocities and ICA/CCA ratios have been found to correlate with increased degrees of vessel stenosis, calculated as percentage of diameter relative to a normal segment of distal ICA/CCA FINDINGS: RIGHT CAROTID: No significant stenosis is visualized. There is mild atherosclerosis identified within the carotid b ulb as well as within the proximal external carotid artery, unchanged from prior exam. The waveforms demonstrate mild broadening. Velocities within the internal carotid artery and grayscale images are c onsistent with less than 50% stenosis. LEFT CAROTID: No significant stenosis is visualized. There is mild atherosclerosis identified within the carotid b ulb as well as within the proximal external carotid artery, unchanged from prior exam. The waveforms demonstrate mild broadening. Velocities within the internal carotid artery and grayscale images are c onsistent with less than 50% stenosis. VERTEBRAL ARTERIES: Antegrade flow is seen in both vertebral arteries. MISCELLANEOUS: None. CONCLUSION: Stable bilateral mild atherosclerosis with velocities within the internal carotid art eries consistent with less than 50% stenosis. Codi Garcia MD on February 12, 2017 at 12:26 Board Certified Radiologist. This report was verified electronically.
--- NOTE | 2017-02-12 13:59 | HHI.PR ---
Subjective Remarks Patient seen and examined earlier this morning around 9 Patient was transferred to ICU yesterday evening per neurologist recommendation given the large size of his stroke. He is more awake today. However speech still incoherent. He can follow some commands. Discussed with RN. Objective Vitals Vital Signs Date Time Temp Pulse Resp B/P Pulse Ox O2 Delivery O2 Flow Rate FiO2 02/12/17 07:18 96 Nasal Cannula 2.00 02/12/17 06:00 78 02/12/17 04:00 87 02/12/17 04:00 98.5 87 14 159/79 90 02/12/17 02:00 95 02/12/17 00:00 101.2 97 14 167/80 95 02/12/17 00:00 97 02/11/17 22:00 106 02/11/17 20:00 99.4 101 16 216/100 97 02/11/17 20:00 101 02/11/17 19:00 97 Nasal Cannula 2.00 02/11/17 16:00 98.3 85 22 180/84 96 I/O 02/11/17 02/11/17 02/11/17 02/12/17 02/12/17 02/12/17 07:00 15:00 23:00 07:00 15:00 23:00 Intake Total 297 ml 480 ml Output Total 500 ml 400 ml 225 ml Balance -500 ml -103 ml 255 ml Intake IV Total 297 ml 480 ml Output Urine Total 500 ml 400 ml 225 ml # Bowel Movements 0 Result Diagram: 02/12/17 0406 02/12/17 0406 Objective Remarks GENERAL: Frail elderly male lying in bed. Awake and alert but unable to communicate. Can follow some commands CARDIOVASCULAR: Normal rate and regular rhythm without murmurs, gallops, or rubs. RESPIRATORY: Breath sounds equal and clear to auscultation bilaterally. GASTROINTESTINAL: Abdomen soft, non-tender, non-distended. Normal active bowel sounds MUSCULOSKELETAL: Extremities without cyanosis, or edema. Right medial con NEURO: Exam limited due to the patient's condition and limited ability to follow commands. Awake and alert. Speech is incoherent. Can move all extremities but generally weak. Cannot appreciate focal weakness except for significant limitation of the right upper extremity due to pain. PSYCH: Calm A/P Problem List: (1) CVA (cerebral vascular accident) ICD Code: I63.9 Status: Acute (2) HTN (hypertension) ICD Code: I10 Status: Acute (3) Shoulder pain ICD Code: M25.519 Status: Acute (4) A-fib ICD Code: I48.91 Status: Acute Assessment and Plan 89-year-old female senior care resident admitted with: CVA: per report, pt last seen normal 02/09/17, on the day of admission 02/10/17, patient was noted to have right-sided weakness and aphasia. CT Head w/ evolving Left GUM REMOVER infarct. MRI w/ areas of subacute infarct in Left GUM REMOVER, infarct of Left Thalamus and Right Inferior Cerebellar Hemisphere w/ possible areas of petechial hemorrhage in left occipital lobe and left thalamus. Appears to be improving - Appreciate neurologist, Dr. French following. Recommends baby aspirin. MRA, carotid ultrasound unremarkable, 2-D echocardiogram pending. - PT/OT/Speech. HTN: BP 218/94, HR 106 on arrival. Resume Losartan and Cardizem. Vasotec PRN Right upper extremity pain: Shoulder pain in the ED. H/o recurrent falls w/ recent admit to [facility], +grimaces w/ palpation of right shoulder, Shoulder X- ray negative for fracture, Elbow xray shows advanced degenerative changes. - Pain control as needed. Hypokalemia: Replace and monitor. A-fib: Chronic. Per records, previously on Coumadin, however not on anticoagulation per review of medication list, may be due to recurrent falls. Currently in sinus rhythm. Resume Cardizem. 2d Echo pending. DVT Prophylaxis: Start Heparin subcutaneous. Discharge Planning Keep patient in the ICU for close monitoring today. Anticipate transfer to floor tomorrow if he remains stable. Problem Qualifiers (1) CVA (cerebral vascular accident): Qualified Code: I63.00 - Cerebrovascular accident (CVA) due to thrombosis of precerebral artery Ray Parker MD Feb 12, 2017 13:59
[2017-02-12] MEDS: HEPARIN SODIUM - SQ 10,000 UNITS/ML VIAL SQ SCH (15:37)
[2017-02-12] MEDS: VALSARTAN 160 MG TAB PO SCH (15:54)
[2017-02-12] MEDS: DILTIAZEM HCL 30 MG TAB PO SCH ×2 (18:23→21:02)
[2017-02-12] MEDS: DIVALPROEX SODIUM DELAYED RELEASE 250 MG TAB PO SCH (21:00)
[2017-02-12] MEDS: PRAVASTATIN SOD 20 MG TAB PO SCH (21:02)
[2017-02-12] MEDS: DONEPEZIL HCL 5 MG TAB PO SCH (21:03)
--- NOTE | 2017-02-12 22:01 | EC ---
Study Study Date:02/12/2017 STUDY CONCLUSIONS SUMMARY - Procedure narrative: Transthoracic echocardiography. Image quality was poor. Scanning was performed from the parasternal, apical, and subcostal acoustic windows. - Left ventricle: The cavity size was normal. Wall thickness was normal. Systolic function was normal. The estimated ejection fraction was in the range of 50% to 55%. Wall motion was normal; there were no regional wall motion abnormalities. - Aortic valve: Valve area: 2.25cm^2 (Vmax). - Mitral valve: Mild regurgitation. If LV function is below 40, please consider prescribing an ACEI or ARB or document rationale for non-use. PROCEDURE DATA STUDY STATUS: Elective. Procedure: Transthoracic echocardiography. Image quality was poor. Scanning was performed from the parasternal, apical, and subcostal acoustic windows. Study completion: The patient tolerated the procedure well. Transthoracic echocardiography. M-mode, complete 2D, complete spectral Doppler, and color Doppler. Height: Height: 67in. Weight: Weight: 126.7lb. Body mass index: BMI: 19.9kg/m^2. Body surface area: BSA: 1.67m^2. Patient status: Inpatient. CARDIAC ANATOMY LEFT VENTRICLE: The cavity size was normal. Wall thickness was normal. Systolic function was normal. The estimated ejection fraction was in the range of 50% to 55%. Wall motion was normal; there were no regional wall motion abnormalities. AORTIC VALVE: Trileaflet; normal thickness leaflets. Doppler: Transvalvular velocity was within the normal range. There was no stenosis. No regurgitation. Valve area: 2.25cm^2 (Vmax). Indexed valve area: 1.35cm^2/m^2 (Vmax). AORTA: Aortic root: The aortic root was normal in size. MITRAL VALVE: Structurally normal valve. Doppler: Transvalvular velocity was within the normal range. There was no evidence for stenosis. Mild regurgitation. Peak gradient: 5mm Hg (D). LEFT ATRIUM: The atrium was normal in size. RIGHT VENTRICLE: The cavity size was normal. Wall thickness was normal. PULMONIC VALVE: Doppler: Transvalvular velocity was within the normal range. There was no evidence for stenosis. No regurgitation. TRICUSPID VALVE: Structurally normal valve. Doppler: Transvalvular velocity was within the normal range. No regurgitation. PULMONARY ARTERY: The main pulmonary artery was normal-sized. Systolic pressure was within the normal range. RIGHT ATRIUM: The atrium was normal in size. PERICARDIUM: There was no pericardial effusion. SYSTEMIC VEINS: Inferior vena cava: The vessel was normal in size. Patient weight: 126.7lb _Ejection fraction:_ 65-75% _Fractional shortening:_ 32% up to 5Kg 5-11.5Kg 11.6-22.9Kg 23-45Kg 45-57Kg Aortic Root 7-13 <17 13-22 17-27 17-27 LA diam 6-13 <23 24-38 33-47 37-40 RVID 10-17 7-15 7-15 7-18 8-17 LVIDd 12-22 <32 24-38 33-47 37-40 LVPW 2-4 3-6 5-7 6-8 7-8 IVS 2-4 3-6 5-7 6-8 7-8 BASIC MEASUREMENTS ADULT NORMAL Left ventricle LV internal dimension, ED, chordal *31.7 mm 43-52 level, PLAX LV internal dimension, ES, chordal 24.4 mm 23-38 level, PLAX Fractional shortening, chordal level, *23 % >29 PLAX LV posterior wall thickness, ED 7.27 mm IVS/LVPW ratio, ED 0.86 <1.3 Ventricular septum Septal thickness, ED 6.23 mm Aortic valve Leaflet separation 15 mm 15-26 BASIC MEASUREMENTS ADULT NORMAL Aortic valve Leaflet separation 15 mm 15-26 Aorta Root diameter, ED 29 mm 20-37 Left atrium Anterior-posterior dimension, ES 36 mm 19-40 Anterior-posterior dimension index, ES 2.16 cm/m^2 <2.2 LA/aortic root ratio 1.24 DOPPLER MEASUREMENTS ADULT NORMAL Main pulmonary artery Pressure, S 28 mm Hg =30 Aortic valve Peak velocity, S 126 cm/s Valve area, Vmax 2.25 cm^2 Valve area index, Vmax 1.35 cm^2/m^2 Regurgitant velocity, ED 271 cm/s Regurgitant deceleration 1370 cm/s^2 Regurgitant pressure half-time 579 ms Regurgitant gradient, ED 29 mm Hg Mitral valve Peak E-wave velocity 115 cm/s Peak A-wave velocity 127 cm/s Deceleration time 201 ms 150-230 Peak gradient, D 5 mm Hg Peak E/A ratio 0.9 Maximal regurgitant velocity 285 cm/s Tricuspid valve Regurgitant peak velocity 212 cm/s Peak RV-RA gradient, S 18 mm Hg Maximal regurgitant velocity 212 cm/s Systemic veins Estimated CVP 10 mm Hg Right ventricle RV pressure, S 28 mm Hg <30 LEGEND: Mean values are shown as u=mean value. Asterisk (*) florez values outside specified normal range. Prepared and signed by Nathen Rea [id number]
[2017-02-13] VITALS (13 sets, daily range): BP systolic 142–181; BP diastolic 58–85; PULSE 68–93; RESP 10–26; TEMP 97.7–99.6; O2SAT 95–100
[2017-02-13] MEDS: HEPARIN SODIUM - SQ 10,000 UNITS/ML VIAL SQ SCH ×2 (02:00→13:59)
[2017-02-13] MEDS: CHLORHEXIDINE GLUCONATE 2 % 1 PACK (2 CLOTHS)(taper/protocol) TOPICAL SCH (04:00)
[2017-02-13 04:47] LABS: HEMATOCRIT 38.2 % (39.0-51.0); MEAN CELL VOLUME 86.7 FL (80.0-100.0); MEAN CORPUSCULAR HEMOGLOBIN 29.8 PG (27.0-34.0); MEAN CORPUSCULAR HGB CONC 34.4 % (32.0-36.0); PLATELET COUNT 207 TH/MM3 (150-450); RED CELL DISTRIBUTION WIDTH 13.4 % (11.6-17.2); REVIEW FLAG FINAL; WHITE BLOOD COUNT 14.8 TH/MM3 (4.0-11.0)
[2017-02-13] MEDS: SODIUM CHLOR 0.9% 1000 ML INJ 1,000 ML IV SCH ×2 (04:58→19:16)
[2017-02-13 05:16] LABS: BICARBONATE 25.7 MEQ/L (21.0-32.0); POTASSIUM 3.1 MEQ/L (3.5-5.1)
[2017-02-13] MEDS: INSULIN ASPART SUPPLEMENTAL SCALE SQ SCH ×4 (05:38→21:00)
[2017-02-13] MEDS: DILTIAZEM HCL 30 MG TAB PO SCH ×4 (08:53→21:37)
[2017-02-13] MEDS: VALSARTAN 160 MG TAB PO SCH (08:53)
[2017-02-13] MEDS: CHOLECALCIFEROL (VIT D3) 1000 UNIT TAB PO SCH (08:55)
[2017-02-13] MEDS: ASPIRIN 300 MG SUPP RECTAL SCH (08:55)
[2017-02-13] MEDS ORDERED: POTASSIUM CHLORIDE 25 MEQ EFFERVESCENT TAB PO ONE (09:00)
[2017-02-13] MEDS: SODIUM CHLORIDE 0.9% FLUSH 10 ML FLUSH IV FLUSH SCH ×2 (09:00→21:00)
[2017-02-13] MEDS: POTASSIUM CHLOR 20 MEQ PREMIX 100 ML IV SCH ×2 (09:16→13:59)
--- NOTE | 2017-02-13 10:06 | HHI.PR ---
Subjective Remarks much more alert tells me he feels better. Objective Vital Signs Date Time Temp Pulse Resp B/P Pulse Ox O2 Delivery O2 Flow Rate FiO2 02/13/17 07:00 100 Nasal Cannula 2.00 02/13/17 06:00 75 02/13/17 04:00 99.6 72 24 142/58 100 02/13/17 04:00 72 02/13/17 02:00 80 02/13/17 00:00 80 02/13/17 00:00 97.7 80 26 157/85 98 02/12/17 22:00 93 02/12/17 20:00 88 02/12/17 20:00 97.4 88 24 170/76 98 02/12/17 19:33 96 Nasal Cannula 2.00 02/12/17 19:00 98 Nasal Cannula 2.00 02/12/17 18:00 96 02/12/17 16:00 98.1 96 17 194/91 100 02/12/17 16:00 96 02/12/17 14:00 92 02/12/17 12:00 98.1 74 16 150/69 100 02/12/17 12:00 74 02/12/17 12:00 97 Nasal Cannula 2.00 02/12/17 12:00 97 Nasal Cannula 2.00 I/O 02/12/17 02/12/17 02/12/17 02/13/17 02/13/17 02/13/17 07:00 15:00 23:00 07:00 15:00 23:00 Intake Total 480 ml 750 ml 561 ml 518 ml Output Total 225 ml 400 ml 800 ml 250 ml Balance 255 ml 350 ml -239 ml 268 ml Intake Oral 150 ml 100 ml IV Total 480 ml 600 ml 461 ml 518 ml Output Urine Total 225 ml 400 ml 800 ml 250 ml # Bowel Movements 1 Result Diagram: 02/13/17 0335 02/13/17 0335 Imaging mri c/w subac left headwaiter/headwaitress inf and right cerebellar inf. mra cow neg cus mild ats b/l echo ef 50-55% Assessment and Plan Assessment and Plan s/p left headwaiter/headwaitress stroke and right cerebellar stroke a fib .hx -300pr asa ok to change to po if able to swallow -PT-OT-ST -rehab consult -sq heparin dvt prophylaxis -will need AC but would wait at least 2 weeks to avoid hemorrhagic conversion. -ok oob with PT. Addis French MD Feb 13, 2017 10:06
--- NOTE | 2017-02-13 14:04 | HHI.PR ---
Subjective Remarks Patient failed swallow eval today. He is alert. Not talking. Denies pain. Does better with family around. Objective Vitals Vital Signs Date Time Temp Pulse Resp B/P Pulse Ox O2 Delivery O2 Flow Rate FiO2 02/13/17 12:00 77 02/13/17 12:00 98.9 77 26 160/73 95 02/13/17 10:00 85 02/13/17 08:00 71 02/13/17 08:00 99.6 68 10 169/75 100 02/13/17 07:00 100 Nasal Cannula 2.00 02/13/17 06:00 75 02/13/17 04:00 99.6 72 24 142/58 100 02/13/17 04:00 72 02/13/17 02:00 80 02/13/17 00:00 80 02/13/17 00:00 97.7 80 26 157/85 98 02/12/17 22:00 93 02/12/17 20:00 88 02/12/17 20:00 97.4 88 24 170/76 98 02/12/17 19:33 96 Nasal Cannula 2.00 02/12/17 19:00 98 Nasal Cannula 2.00 02/12/17 18:00 96 02/12/17 16:00 98.1 96 17 194/91 100 02/12/17 16:00 96 02/12/17 14:00 92 I/O 02/12/17 02/12/17 02/12/17 02/13/17 02/13/17 02/13/17 07:00 15:00 23:00 07:00 15:00 23:00 Intake Total 480 ml 750 ml 561 ml 518 ml Output Total 225 ml 400 ml 800 ml 250 ml Balance 255 ml 350 ml -239 ml 268 ml Intake Oral 150 ml 100 ml IV Total 480 ml 600 ml 461 ml 518 ml Output Urine Total 225 ml 400 ml 800 ml 250 ml # Bowel Movements 1 Result Diagram: 02/13/17 0335 02/13/17 0335 Objective Remarks GENERAL: Frail elderly male lying in bed. Awake and alert but unable to communicate. Can follow some commands CARDIOVASCULAR: Normal rate and regular rhythm without murmurs, gallops, or rubs. RESPIRATORY: Breath sounds equal and clear to auscultation bilaterally. GASTROINTESTINAL: Abdomen soft, non-tender, non-distended. Normal active bowel sounds MUSCULOSKELETAL: Extremities without cyanosis, or edema. Right medial con NEURO: Exam limited due to the patient's condition and limited ability to follow commands. Awake and alert. Speech is incoherent. Can move all extremities but generally weak. Cannot appreciate focal weakness except for significant limitation of the right upper extremity due to pain. PSYCH: Calm A/P Problem List: (1) CVA (cerebral vascular accident) ICD Code: I63.9 Status: Acute (2) HTN (hypertension) ICD Code: I10 Status: Acute (3) Shoulder pain ICD Code: M25.519 Status: Acute (4) A-fib ICD Code: I48.91 Status: Acute Assessment and Plan 89-year-old female [place] [facility] resident admitted with: CVA: per report, pt last seen normal 02/09/17, on the day of admission 02/10/17, patient was noted to have right-sided weakness and aphasia. 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 MRI w/ areas of subacute infarct in Left EXTRUSION PRESS OPERATOR, infarct of Left Thalamus and Right Inferior Cerebellar Hemisphere w/ possible areas of petechial hemorrhage in left occipital lobe and left thalamus. Appears to be improving - Appreciate neurologist, Dr. French following. Recommends Aspirin. MRA, carotid ultrasound unremarkable, 2-D echocardiogram study was limited but grossly unremarkable per report. - Neuro status waxing and waning - PT/OT/Speech. Failed swallow evaluation today. Speech therapy to follow-up tomorrow. - Rehab medicine consulted. HTN: BP 218/94, HR 106 on arrival. Resume Losartan and Cardizem. Vasotec PRN Right upper extremity pain: Shoulder pain in the ED. H/o recurrent falls w/ recent admit to [facility], +grimaces w/ palpation of right shoulder, Shoulder X- ray negative for fracture, Elbow xray shows advanced degenerative changes. - Pain control as needed. Hypokalemia: Replace and monitor. A-fib: Chronic. Currently on aspirin, will need anticoagulant in a couple of weeks when the risk of hemorrhagic conversion is less per neurology.. Currently in sinus rhythm. Resume Cardizem. DVT Prophylaxis: Heparin subcutaneous. Discharge Planning Keep patient in the ICU today for close monitoring. Problem Qualifiers (1) CVA (cerebral vascular accident): Qualified Code: I63.00 - Cerebrovascular accident (CVA) due to thrombosis of precerebral artery Ray Parker MD Feb 13, 2017 14:04
[2017-02-13] MEDS: DONEPEZIL HCL 5 MG TAB PO SCH (21:37)
[2017-02-13] MEDS: PRAVASTATIN SOD 20 MG TAB PO SCH (21:37)
[2017-02-13] MEDS: DIVALPROEX SODIUM DELAYED RELEASE 250 MG TAB PO SCH (21:37)
[2017-02-14] VITALS (14 sets, daily range): BP systolic 130–190; BP diastolic 66–98; PULSE 75–93; RESP 20–23; TEMP 98.6–100.5; O2SAT 98–100
[2017-02-14] MEDS: HEPARIN SODIUM - SQ 10,000 UNITS/ML VIAL SQ SCH ×3 (03:55→23:56)
[2017-02-14] MEDS: CHLORHEXIDINE GLUCONATE 2 % 1 PACK (2 CLOTHS)(taper/protocol) TOPICAL SCH (04:00)
[2017-02-14 05:52] LABS: HEMATOCRIT 40.1 % (39.0-51.0); MEAN CELL VOLUME 86.6 FL (80.0-100.0); MEAN CORPUSCULAR HEMOGLOBIN 30.1 PG (27.0-34.0); MEAN CORPUSCULAR HGB CONC 34.8 % (32.0-36.0); PLATELET COUNT 231 TH/MM3 (150-450); RED BLOOD COUNT 4.64 MIL/MM3 (4.50-5.90); RED CELL DISTRIBUTION WIDTH 13.4 % (11.6-17.2); REVIEW FLAG FINAL; WHITE BLOOD COUNT 15.2 TH/MM3 (4.0-11.0)
[2017-02-14 06:10] LABS: BICARBONATE 25.1 MEQ/L (21.0-32.0)
[2017-02-14 06:13] LABS: POTASSIUM 2.9 MEQ/L (3.5-5.1)
[2017-02-14] MEDS: INSULIN ASPART SUPPLEMENTAL SCALE SQ SCH ×4 (06:17→21:00)
[2017-02-14] MEDS: POTASSIUM CHLOR 20 MEQ PREMIX 100 ML IV SCH ×3 (07:49→13:56)
[2017-02-14] MEDS: VALSARTAN 160 MG TAB PO SCH (07:50)
[2017-02-14] MEDS: CHOLECALCIFEROL (VIT D3) 1000 UNIT TAB PO SCH (07:50)
[2017-02-14] MEDS: DILTIAZEM HCL 30 MG TAB PO SCH ×4 (07:50→21:10)
[2017-02-14] MEDS: ASPIRIN 300 MG SUPP RECTAL SCH (07:51)
[2017-02-14] MEDS: SODIUM CHLORIDE 0.9% FLUSH 10 ML FLUSH IV FLUSH SCH ×2 (09:00→21:00)
--- NOTE | 2017-02-14 16:09 | HHI.PR ---
Subjective Remarks Patient is more awake today. He passed swallow eval. He says he is doing okay. Discussed with RN. Still have some intermittent periods of confusion. Objective Vitals Vital Signs Date Time Temp Pulse Resp B/P Pulse Ox O2 Delivery O2 Flow Rate FiO2 02/14/17 14:00 82 02/14/17 13:11 100 Nasal Cannula 2.00 02/14/17 12:00 82 02/14/17 12:00 98.6 81 20 164/98 100 02/14/17 10:00 82 02/14/17 08:00 98.6 82 20 157/70 100 02/14/17 08:00 82 02/14/17 07:00 Nasal Cannula 02/14/17 07:00 100 Nasal Cannula 2.00 02/14/17 06:00 75 02/14/17 04:00 98.6 83 20 175/85 100 02/14/17 04:00 86 02/14/17 02:00 93 02/14/17 00:00 80 02/14/17 00:00 98.8 80 20 190/81 99 02/13/17 22:00 93 02/13/17 20:19 99 Nasal Cannula 2.00 02/13/17 20:00 98.9 73 20 181/79 100 02/13/17 20:00 82 02/13/17 19:00 100 Nasal Cannula 2.00 02/13/17 18:00 82 I/O 02/13/17 02/13/17 02/13/17 02/14/17 02/14/17 02/14/17 07:00 15:00 23:00 07:00 15:00 23:00 Intake Total 518 ml 700 ml 540 ml 515 ml 800 ml Output Total 250 ml 350 ml 650 ml 850 ml 950 ml Balance 268 ml 350 ml -110 ml -335 ml -150 ml Intake Oral 250 ml IV Total 518 ml 700 ml 540 ml 515 ml 550 ml Output Urine Total 250 ml 350 ml 650 ml 850 ml 950 ml Stool Total 0 ml # Bowel Movements 0 1 1 Result Diagram: 02/14/17 0449 02/14/17 0449 Objective Remarks GENERAL: Frail elderly male lying in bed. Awake and alert. Can follow some commands CARDIOVASCULAR: Normal rate and regular rhythm without murmurs, gallops, or rubs. RESPIRATORY: Breath sounds equal and clear to auscultation bilaterally. GASTROINTESTINAL: Abdomen soft, non-tender, non-distended. Normal active bowel sounds MUSCULOSKELETAL: Extremities without cyanosis, or edema. Right medial con NEURO: Exam limited due to the patient's condition and limited ability to follow commands. Awake and alert. Speech is difficult to understand. Can move all extremities but generally weak. Appear to have right sided neglect. PSYCH: Calm A/P Problem List: (1) CVA (cerebral vascular accident) ICD Code: I63.9 Status: Acute (2) HTN (hypertension) ICD Code: I10 Status: Acute (3) Shoulder pain ICD Code: M25.519 Status: Acute (4) A-fib ICD Code: I48.91 Status: Acute Assessment and Plan 89-year-old female [place] [facility] admitted with: CVA: per report, pt last seen normal 02/09/17, on the day of admission 02/10/17, patient was noted to have right-sided weakness and aphasia. CT Head w/ evolving Left ENGRAVER PICTURE infarct. MRI w/ areas of subacute infarct in Left ENGRAVER PICTURE, infarct of Left Thalamus and Right Inferior Cerebellar Hemisphere w/ possible areas of petechial hemorrhage in left occipital lobe and left thalamus. Appears to be improving - Appreciate neurologist, Dr. French following. Recommends Aspirin. MRA, carotid ultrasound unremarkable, 2-D echocardiogram study was limited but grossly unremarkable per report. - Neuro status waxing and waning - PT/OT/Speech. Pass swallowing eval today - Rehab medicine consulted. HTN: BP 218/94, HR 106 on arrival. Resume Losartan and Cardizem. Vasotec PRN Right upper extremity pain: Shoulder pain in the ED. H/o recurrent falls w/ recent admit to [facility], +grimaces w/ palpation of right shoulder, Shoulder X- ray negative for fracture, Elbow xray shows advanced degenerative changes. - Pain control as needed. Hypokalemia: Replace and monitor. A-fib: Chronic. Currently on aspirin, will need anticoagulant in a couple of weeks when the risk of hemorrhagic conversion is less per neurology.. Currently in sinus rhythm. Resume Cardizem. DVT Prophylaxis: Heparin subcutaneous. Discharge Planning Stable to transfer to floor today. Problem Qualifiers (1) CVA (cerebral vascular accident): Qualified Code: I63.00 - Cerebrovascular accident (CVA) due to thrombosis of precerebral artery Rimpel,Ricardy MD Feb 14, 2017 16:08
[2017-02-14] MEDS: PRAVASTATIN SOD 20 MG TAB PO SCH (21:10)
[2017-02-14] MEDS: DONEPEZIL HCL 5 MG TAB PO SCH (21:10)
[2017-02-14] MEDS: DIVALPROEX SODIUM DELAYED RELEASE 250 MG TAB PO SCH (21:10)
[2017-02-14] MEDS: SODIUM CHLOR 0.9% 1000 ML INJ 1,000 ML IV SCH (21:11)
[2017-02-15] VITALS (8 sets, daily range): BP systolic 158–178; BP diastolic 75–82; PULSE 66–87; RESP 18–20; TEMP 95.6–99.8; O2SAT 92–97
[2017-02-15] MEDS: CHLORHEXIDINE GLUCONATE 2 % 1 PACK (2 CLOTHS)(taper/protocol) TOPICAL SCH (04:00)
[2017-02-15] MEDS: CHOLECALCIFEROL (VIT D3) 1000 UNIT TAB PO SCH (09:00)
[2017-02-15] MEDS: DILTIAZEM HCL 30 MG TAB PO SCH ×4 (09:00→21:00)
[2017-02-15] MEDS: VALSARTAN 160 MG TAB PO SCH (09:00)
[2017-02-15] MEDS: SODIUM CHLORIDE 0.9% FLUSH 10 ML FLUSH IV FLUSH SCH ×2 (09:00→21:00)
[2017-02-15] MEDS: ASPIRIN 300 MG SUPP RECTAL SCH (09:47)
[2017-02-15 10:07] LABS: HEMATOCRIT 37.1 % (39.0-51.0); MEAN CELL VOLUME 87.3 FL (80.0-100.0); MEAN CORPUSCULAR HEMOGLOBIN 30.3 PG (27.0-34.0); MEAN CORPUSCULAR HGB CONC 34.7 % (32.0-36.0); PLATELET COUNT 215 TH/MM3 (150-450); RED BLOOD COUNT 4.25 MIL/MM3 (4.50-5.90); RED CELL DISTRIBUTION WIDTH 13.5 % (11.6-17.2); REVIEW FLAG FINAL; WHITE BLOOD COUNT 12.6 TH/MM3 (4.0-11.0)
[2017-02-15 10:32] LABS: BICARBONATE 25.8 MEQ/L (21.0-32.0); POTASSIUM 3.4 MEQ/L (3.5-5.1)
--- NOTE | 2017-02-15 11:57 | HHI.PR ---
Subjective Remarks Patient failed swallow eval again this morning. Discussed with his and daughter at bedside. Speech therapy to repeat swallow eval tomorrow. Patient has no complaints. He mainly responded in Greek to his family. He is moving thre right upper extremity better. Objective Vitals Vital Signs Date Time Temp Pulse Resp B/P Pulse Ox O2 Delivery O2 Flow Rate FiO2 02/15/17 08:05 66 02/15/17 08:00 97.8 75 18 177/78 95 02/15/17 04:00 95.6 76 18 159/75 92 02/15/17 00:25 99.8 82 18 167/79 93 02/14/17 22:00 82 02/14/17 20:00 100.5 89 23 130/66 02/14/17 20:00 82 02/14/17 19:50 98 21 02/14/17 19:00 98 Nasal Cannula 2.00 02/14/17 18:00 82 02/14/17 16:00 82 02/14/17 16:00 82 02/14/17 16:00 98.8 81 20 188/85 100 02/14/17 14:00 82 02/14/17 13:11 100 Nasal Cannula 2.00 02/14/17 12:00 82 02/14/17 12:00 98.6 81 20 164/98 100 I/O 02/14/17 02/14/17 02/14/17 02/15/17 02/15/17 02/15/17 07:00 15:00 23:00 07:00 15:00 23:00 Intake Total 515 ml 800 ml 521 ml Output Total 850 ml 950 ml 450 ml 300 ml Balance -335 ml -150 ml 71 ml -300 ml Intake Oral 250 ml IV Total 515 ml 550 ml 521 ml Output Urine Total 850 ml 950 ml 450 ml 300 ml # Bowel Movements 1 Result Diagram: 02/15/1782602/15/17826 Objective Remarks GENERAL: Frail elderly male lying in bed. Awake and alert. Can follow some commands CARDIOVASCULAR: Normal rate and regular rhythm without murmurs, gallops, or rubs. RESPIRATORY: Breath sounds equal and clear to auscultation bilaterally. GASTROINTESTINAL: Abdomen soft, non-tender, non-distended. Normal active bowel sounds MUSCULOSKELETAL: Extremities without cyanosis, or edema. Right medial con NEURO: Exam limited due to the patient's condition and limited ability to follow commands. Awake and alert. Speech is difficult to understand. Can move all extremities but generally weak. Appear to have right sided neglect. PSYCH: Calm A/P Problem List: (1) CVA (cerebral vascular accident) ICD Code: I63.9 Status: Acute (2) HTN (hypertension) ICD Code: I10 Status: Acute (3) Shoulder pain ICD Code: M25.519 Status: Acute (4) A-fib ICD Code: I48.91 Status: Acute Assessment and Plan 89-[facility]-old female shelter resident admitted with: CVA: per report, pt last seen normal 02/09/17, on the day of admission 02/10/17, patient was noted to have right-sided weakness and aphasia. 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 MRI w/ areas of subacute infarct in Left KEYPUNCH OPERATORS SUPERVISOR, infarct of Left Thalamus and Right Inferior Cerebellar Hemisphere w/ possible areas of petechial hemorrhage in left occipital lobe and left thalamus. Appears to be improving - Appreciate neurologist, Dr. French following. Recommends Aspirin. MRA, carotid ultrasound unremarkable, 2-D echocardiogram study was limited but grossly unremarkable per report. - Neuro status waxing and waning - PT/OT/Speech. Patient failed swallow eval again today. Speech therapy to evaluate tomorrow. - Rehab medicine consulted. HTN: BP 218/94, HR 106 on arrival. Resume Losartan and Cardizem. Vasotec PRN Right upper extremity pain: Shoulder pain in the ED. H/o recurrent falls w/ recent admit to [facility], +grimaces w/ palpation of right shoulder, Shoulder X- ray negative for fracture, Elbow xray shows advanced degenerative changes. - Pain control as needed. Hypokalemia: Replace and monitor. A-fib: Chronic. Currently on aspirin, will need anticoagulant in a couple of weeks when the risk of hemorrhagic conversion is less per neurology. Currently in sinus rhythm. Resume Cardizem. DVT Prophylaxis: Heparin subcutaneous. Discharge Planning continue care. If inability to swallow persist, will need to discuss alternate method of feeding. Problem Qualifiers (1) CVA (cerebral vascular accident): Qualified Code: I63.00 - Cerebrovascular accident (CVA) due to thrombosis of precerebral artery Ray Parker MD Feb 15, 2017 11:57
--- NOTE | 2017-02-15 12:06 | PD.CONS ---
[facility] Service Rehabilitation Medicine Consult Requested By Addis French M.D. Reason for Consult Comprehensive rehabilitation evaluation. Primary Care Physician Minor Saleh MD History of Present Illness Toy Cole is an 89-year-old male admitted [facility] 02/10/17 with change of mental status and increased falls. 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 Brain MRI 02/10/17 showed subacute infarct in the left JOSE including left medial temporal and left occipital regions with left thalamic and right inferior cerebellar infarct with possible small petechial hemorrhage in the left occipital and thalamic areas. Carotid ultrasound showed less than 50% stenosis in the internal carotid arteries bilaterally. Review of Systems ROS Limitations: Altered Mental Status Past Family Social History Allergies: Coded Allergies: Iodine (Verified Allergy, Severe, Anaphylaxis, 02/10/17) Past Medical History Previous cerebrovascular accident 2 Atrial fibrillation Dementia Prostate cancer Hypertension Hyperlipidemia Past Surgical History Cataract surgery Vein stripping Current Medications Current Medications Medications (Trade) Dose Ordered Sig/Lyric Route Start Time Stop Time Status Last Admin (NS Flush) 2 ml BID IV FLUSH 02/10/17 21:00 02/15/17 09:00 (NS Flush) 2 ml UNSCH PRN IV FLUSH 02/10/17 20:00 02/11/17 05:16 (Vasotec Inj) 1.25 mg Q4H PRN IV 02/10/17 20:00 02/11/17 05:15 (Aspirin Supp) 300 mg DAILY RECTAL 02/11/17 09:00 Hold (Ativan Inj) 1 mg Q5M PRN IV PUSH 02/10/17 20:00 (Tylenol Supp) 650 mg Q6H PRN RECTAL 02/11/17 05:30 02/11/17 06:32 (Aspirin Supp) 300 mg DAILY RECTAL 02/12/17 09:00 02/15/17 09:47 Miscellaneous Information Patient in critical care unit? Ass... [id number] .XX 02/12/17 00:30 02/12/17 00:30 (Chlorhexidine 2% Cloth) 3 pack DAILY@04 TOPICAL 02/12/17 04:00 02/16/17 04:01 02/14/17 04:00 (Chlorhexidine 2% Cloth) 3 pack UNSCH PRN TOPICAL 02/12/17 00:30 02/17/17 00:26 (Vitamin D3) 2,000 units DAILY PO 02/13/17 09:00 02/14/17 07:50 (Cardizem) 30 mg QID PO 02/12/17 18:00 02/14/17 21:10 (Depakote Dr) 250 mg HS PO 02/12/17 21:00 02/14/17 21:10 (Aricept) 5 mg HS PO 02/12/17 21:00 02/14/17 21:10 (Pravachol) 20 mg HS PO 02/12/17 21:00 02/14/17 21:10 (Diovan) 160 mg DAILY PO 02/12/17 15:00 02/14/17 07:50 (Heparin Inj) 5,000 units Q12H SQ 02/12/17 14:00 02/14/17 23:56 Family History Unable to obtain Social History Prior to admission patient was residing in nursing home facility Exam I&O / VS 02/14/17 02/14/17 02/15/17 15:00 23:00 07:00 Intake Total 800 ml 521 ml Output Total 950 ml 450 ml 300 ml Balance -150 ml 71 ml -300 ml Intake Oral 250 ml IV Total 550 ml 521 ml Output Urine Total 950 ml 450 ml 300 ml Vital Signs Date Time Temp Pulse Resp B/P Pulse Ox O2 Delivery O2 Flow Rate FiO2 02/15/17 08:05 66 02/15/17 08:00 97.8 75 18 177/78 95 02/15/17 04:00 95.6 76 18 159/75 92 02/15/17 00:25 99.8 82 18 167/79 93 02/14/17 22:00 82 02/14/17 20:00 100.5 89 23 130/66 02/14/17 20:00 82 02/14/17 19:50 98 21 02/14/17 19:00 98 Nasal Cannula 2.00 02/14/17 18:00 82 02/14/17 16:00 82 02/14/17 16:00 82 02/14/17 16:00 98.8 81 20 188/85 100 02/14/17 14:00 82 02/14/17 13:11 100 Nasal Cannula 2.00 General: No acute distress, Other (NC O2 in place) Respiratory: Lungs CTA, Non-labored respirations, BS equal Gastrointestinal: Positive Bowel Sounds, Non-Distended, Non-Tender Cardiovascular: Normal rate, Regular Rhythm Skin: Other (No rash noted) Musculoskeletal: ROM (Within functional limits) Psychiatric: Cooperative (Appears confused; not agitated or restless) Orientation: oriented to Self, unable to asses Place, unable to asses Time, unable to asses Situation Neurologic: Speech (Some spontaneous speech but not intelligible), Other ( Follows approximately 50% simple commands to move extremities) Sensory Unable to assess DTRs: Normal (1+) Clonus: Negative Assessment and Plan Diagnosis: (1) CVA (cerebral vascular accident) Qualified Code: I63.332 - Cerebrovascular accident (CVA) due to thrombosis of left posterior cerebral artery Assessment 1. 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 Dysphagia 3. Hypertension 4. Atrial fibrillation 5. Dementia 6. History of previous stroke 2 7. Prostate cancer 8. Hyperlipidemia Plan 1. Speech therapy has reevaluated swallowing patient is tolerating. Diet with pudding thick liquids. Would follow nutrition and hydration carefully and consider PEG is appropriate 2. Physical therapy consulted to begin to mobilize patient 3. Occupational therapy addressing ADLs and currently dependent 4. Reposition every 2 hours to protect skin 5. Currently receiving subcutaneous heparin for DVT prophylaxis 6. Anticipate ongoing rehabilitation needs at discharge and case management has referred to patient's previous nursing home facility 7. Will follow-up hospitalized and at discharge Thank you for this consult Ayde Salas MD Feb 15, 2017 12:05
[2017-02-15] MEDS: HEPARIN SODIUM - SQ 10,000 UNITS/ML VIAL SQ SCH (12:41)
[2017-02-15] MEDS: ENALAPRILAT 1.25 MG/ML VIAL IV PRN ×3 (14:13→21:17)
[2017-02-15] MEDS: D5-1/2 NS + KCL 20 MEQ INJ 1,000 ML IV SCH (17:58)
[2017-02-15] MEDS: PRAVASTATIN SOD 20 MG TAB PO SCH (21:00)
[2017-02-15] MEDS: DONEPEZIL HCL 5 MG TAB PO SCH (21:00)
[2017-02-15] MEDS: DIVALPROEX SODIUM DELAYED RELEASE 250 MG TAB PO SCH (21:00)
[2017-02-16] VITALS (10 sets, daily range): BP systolic 125–178; BP diastolic 51–72; PULSE 66–96; RESP 18–20; TEMP 96.8–100.8; O2SAT 90–99
[2017-02-16] MEDS: HEPARIN SODIUM - SQ 10,000 UNITS/ML VIAL SQ SCH ×2 (02:58→15:28)
[2017-02-16] MEDS: CHLORHEXIDINE GLUCONATE 2 % 1 PACK (2 CLOTHS)(taper/protocol) TOPICAL SCH (04:00)
[2017-02-16] MEDS: D5-1/2 NS + KCL 20 MEQ INJ 1,000 ML IV SCH ×2 (06:20→18:59)
[2017-02-16] MEDS: SODIUM CHLORIDE 0.9% FLUSH 10 ML FLUSH IV FLUSH SCH ×2 (09:00→21:12)
[2017-02-16] MEDS: VALSARTAN 160 MG TAB PO SCH (09:00)
[2017-02-16] MEDS: ASPIRIN 300 MG SUPP RECTAL SCH (09:00)
[2017-02-16] MEDS: DILTIAZEM HCL 30 MG TAB PO SCH ×4 (09:00→21:12)
[2017-02-16] MEDS: CHOLECALCIFEROL (VIT D3) 1000 UNIT TAB PO SCH (09:00)
--- NOTE | 2017-02-16 09:17 | RADRPT ---
EXAM DATE/TIME: 02/16/2017 08:40 [facility] COMPARISON: CHEST SINGLE AP, February 10, 2017, 18:11. INDICATIONS : Fever. MEDICAL HISTORY : None. SURGICAL HISTORY : None. ENCOUNTER: Subsequent ACUITY: 1 week PAIN SCORE: Non-responsive. LOCATION: chest FINDINGS: A single view of the chest demonstrates the lungs to be symmetrically aerated without evidence of mas s, infiltrate or effusion. The cardiomediastinal contours are unremarkable. Osseous structures are intact. CONCLUSION: Normal examination. Continued mild pulmonary vascular congestion Lobito Ramos MD on February 16, 2017 at 9:16 Board Certified Radiologist. This report was verified electronically.
--- NOTE | 2017-02-16 14:31 | HHI.PR ---
Subjective Remarks Patient said he is feeling okay and stated thank you. He remains confused. He did pass the swallow eval today. Objective Vitals Vital Signs Date Time Temp Pulse Resp B/P Pulse Ox O2 Delivery O2 Flow Rate FiO2 02/16/17 12:03 97.0 71 19 150/65 95 02/16/17 11:02 95 Nasal Cannula 2.00 02/16/17 09:09 96.9 68 20 178/70 99 02/16/17 04:45 130/51 97 02/16/17 04:00 98.9 90 20 130/51 90 02/16/17 00:00 100.8 96 20 125/72 99 02/15/17 21:00 Nasal Cannula 2.00 02/15/17 20:00 97.0 85 18 172/77 95 02/15/17 20:00 87 02/15/17 18:11 21 02/15/17 17:05 158/76 02/15/17 16:00 97.4 68 18 178/82 96 I/O 02/15/17 02/15/17 02/15/17 02/16/17 02/16/17 02/16/17 07:00 15:00 23:00 07:00 15:00 23:00 Output Total 300 ml 800 ml Balance -300 ml -800 ml Output Urine Total 300 ml 800 ml # Voids 2 1 2 # Bowel Movements 1 0 0 Result Diagram: 02/15/1782602/15/17826 Objective Remarks GENERAL: Frail elderly male lying in bed. Awake and alert. Can follow some commands CARDIOVASCULAR: Normal rate and regular rhythm without murmurs, gallops, or rubs. RESPIRATORY: Breath sounds equal and clear to auscultation bilaterally. GASTROINTESTINAL: Abdomen soft, non-tender, non-distended. Normal active bowel sounds MUSCULOSKELETAL: Extremities without cyanosis, or edema. Right medial con NEURO: Awake and alert. Follows some commands. Speech is difficult to understand. Can move all extremities but generally weak. Appear to have right sided neglect. PSYCH: Calm A/P Problem List: (1) CVA (cerebral vascular accident) ICD Code: I63.9 Status: Acute (2) HTN (hypertension) ICD Code: I10 Status: Acute (3) Shoulder pain ICD Code: M25.519 Status: Acute (4) A-fib ICD Code: I48.91 Status: Acute Assessment and Plan 89-year-old female longterm resident admitted with: CVA: per report, pt last seen normal 02/09/17, on the day of admission 02/10/17, patient was noted to have right-sided weakness and aphasia. 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 MRI w/ areas of subacute infarct in Left HEALTHCARE CORPORATE ACCOUNT DIRECTOR, infarct of Left Thalamus and Right Inferior Cerebellar Hemisphere w/ possible areas of petechial hemorrhage in left occipital lobe and left thalamus. Slow improvement. - Appreciate neurologist, Dr. French following. Recommends Aspirin. MRA, carotid ultrasound unremarkable, 2-D echocardiogram study was limited but grossly unremarkable per report. - Neuro status waxing and waning - PT/OT/Speech. Patient has been having issues with swallowing. He passed a swallow eval today. Change aspirin to oral. - Rehab medicine following. HTN: BP 218/94, HR 106 on arrival. Resume Losartan and Cardizem. Vasotec PRN Right upper extremity pain: Shoulder pain in the ED. H/o recurrent falls w/ recent admit to [facility], +grimaces w/ palpation of right shoulder, Shoulder X- ray negative for fracture, Elbow xray shows advanced degenerative changes. - Pain control as needed. Hypokalemia: Replace and monitor. A-fib: Chronic. Currently on aspirin, will need anticoagulant in a couple of weeks when the risk of hemorrhagic conversion is less per neurology. Currently in sinus rhythm. Resume Cardizem. DVT Prophylaxis: Heparin subcutaneous. Discharge Planning continue care. Will need rehab. Problem Qualifiers (1) CVA (cerebral vascular accident): Qualified Code: I63.332 - Cerebrovascular accident (CVA) due to thrombosis of left posterior cerebral artery Ray Parker MD Feb 16, 2017 14:31
[2017-02-16] MEDS: PRAVASTATIN SOD 20 MG TAB PO SCH (21:12)
[2017-02-16] MEDS: DIVALPROEX SODIUM DELAYED RELEASE 250 MG TAB PO SCH (21:12)
[2017-02-16] MEDS: DONEPEZIL HCL 5 MG TAB PO SCH (21:12)
[2017-02-16] MEDS: ACETAMINOPHEN 650 MG SUPP RECTAL PRN (21:12)
[2017-02-17] VITALS: BP 135/71; PULSE 64; RESP 18; TEMP 97.5; O2SAT 95
[2017-02-17] MEDS: HEPARIN SODIUM - SQ 10,000 UNITS/ML VIAL SQ SCH ×2 (02:26→13:04)
[2017-02-17 04:00] VITALS: BP 167/72; PULSE 63; RESP 18; TEMP 97.7; O2SAT 94
[2017-02-17 08:00] VITALS: BP 179/75; PULSE 60; RESP 16; TEMP 97.1; O2SAT 98
[2017-02-17] MEDS ORDERED: ASPIRIN 325 MG TAB PO SCH (09:00)
[2017-02-17] MEDS: SODIUM CHLORIDE 0.9% FLUSH 10 ML FLUSH IV FLUSH SCH (09:00)
[2017-02-17] MEDS: D5-1/2 NS + KCL 20 MEQ INJ 1,000 ML IV SCH (09:00)
[2017-02-17] MEDS: CHOLECALCIFEROL (VIT D3) 1000 UNIT TAB PO SCH (09:08)
[2017-02-17] MEDS: DILTIAZEM HCL 30 MG TAB PO SCH ×2 (09:08→13:04)
[2017-02-17] MEDS: VALSARTAN 160 MG TAB PO SCH (09:08)
[2017-02-17 10:03] VITALS: PULSE 82
[2017-02-17 12:00] VITALS: BP 158/68; PULSE 64; RESP 16; TEMP 97.1; O2SAT 99
[2017-02-17] MEDS ORDERED: ASPI325T PO (15:16)
--- NOTE | 2017-02-17 15:16 | HHI.DS ---
Discharge Summary Admission Date Feb 10, 2017 at 19:32 Discharge Date: Feb 17, 2017 Admitting Diagnosis CVA (1) CVA (cerebral vascular accident) ICD Code: I63.9 (2) HTN (hypertension) ICD Code: I10 (3) Shoulder pain ICD Code: M25.519 (4) A-fib ICD Code: I48.91 Procedures None Brief History - From Admission This is an 89-year-old male with a PMH of HTN, A. fib, Prostate CA and Hyperlipidemia who since the ER from [facility] secondary to worsening mental status. Per report, pt last seen normal on 02/09/17 at unknown time, today pt noted to have decline in mental status, right-sided weakness and aphasia. History limited as pt remains non-verbal and unable to provide details. Per reports, pt w/ recent hospitalization at [facility] for recurrent falls and deconditioning. CT Head/MRI Brain w/ no acute CVA per hospital records (in chart). Was d/c'd to [facility] for Rehab. On arrival, BP 218/ 94, HR 106, O2 sat 99% on RA, Afebrile. WBC 13.9. Chemistry with GFR 73 lactic Acid 1.5. Troponin negative. INR 1.0. UA negative. 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 CXR with no acute findings. Shoulder X-ray negative. Rib X-ray no acute fracture. Dr. French consulted by ER physician, recommended MRI Brain and ASA 300mg NC. CBC/BMP: 02/15/17 0827 02/15/17 0827 Significant Findings Laboratory Tests Test 02/15/17 08:27 White Blood Count 12.6 TH/MM3 (4.0-11.0) Red Blood Count 4.25 MIL/MM3 (4.50-5.90) Hemoglobin 12.9 GM/DL (13.0-17.0) Hematocrit 37.1 % (39.0-51.0) Potassium Level 3.4 MEQ/L (3.5-5.1) Chloride Level 110 MEQ/L (98-107) Imaging Last Impressions Chest X-Ray 02/16/17 0000 Signed Impressions: Service Date/Time: February 08:40 - CONCLUSION: Normal examination. Continued mild pulmonary vascular congestion Lobito Ramos MD Carotid Artery Ultrasound 02/12/17 0000 Signed Impressions: Service Date/Time: Sunday, February 12, 2017 10:21 - CONCLUSION: Stable bilateral mild atherosclerosis with velocities within the internal carotid arteries consistent with less than 50%% stenosis. Codi Garcia MD Head Magnetic Resonance Angiography 02/11/17 0000 Signed Impressions: Service Date/Time: Saturday, February 11, 2017 17:50 - CONCLUSION: Stable and unremarkable MRA of the [place]. Cosme Wolf MD Elbow X-Ray 02/11/17 0000 Signed Impressions: Service Date/Time: Saturday, February 11, 2017 13:23 - CONCLUSION: Extensive degenerative changes. No evidence of fracture or joint effusion.. Codi Garcia MD Brain MRI 02/10/17 1824 Signed Impressions: Service Date/Time: Friday, February 10, 2017 19:30 - CONCLUSION: 1. Areas of subacute infarction involving the left posterior cerebral artery including the medial left temporal lobe and the left occipital lobe. There is also an area of infarction involving the left thalamus and the right inferior cerebellar hemisphere. There appear to be possible small areas of petechial hemorrhage in the left occipital lobe and left thalamus. 2. Underlying edema. There is also underlying suspected small vessel ischemic change in the white matter with scattered areas of focal demyelination seen. Dayron Masters MD Shoulder X-Ray 02/10/[id number] Signed Impressions: Service Date/Time: Friday, February 10, 2017 18:17 - CONCLUSION: No acute disease. Dayron Masters MD Ribs X-Ray 02/10/171747 Signed Impressions: Service Date/Time: Friday, February 10, 2017 18:11 - CONCLUSION: No acute fracture is seen. Dayron Masters MD Head CT 02/10/17 [id number] Signed Impressions: Service Date/Time: Friday, February 10, 2017 17:11 - CONCLUSION: Evolving left JAVA CORE DEVELOPER stroke. Progressively worsening symmetric ventricular dilatation. Dayron Neely MD PE at Discharge GENERAL: Frail elderly male lying in bed. Awake and alert. Can follow some commands CARDIOVASCULAR: Normal rate and regular rhythm without murmurs, gallops, or rubs. RESPIRATORY: Breath sounds equal and clear to auscultation bilaterally. GASTROINTESTINAL: Abdomen soft, non-tender, non-distended. Normal active bowel sounds MUSCULOSKELETAL: Extremities without cyanosis, or edema. Right medial con NEURO: Awake and alert. Follows some commands. Speech is difficult to understand. Can move all extremities but generally weak. Appear to have right sided neglect. PSYCH: Calm Pt update on day of discharge Patient is better today. Speech still limited. He passed the swallow eval. He is participating with PT. Discussed DC planning at length with the patient's . Hospital Course 89-year-old [facility] resident admitted and treated for the following: CVA: per report, pt last seen normal 02/09/17, on the day of admission 02/10/17, patient was noted to have right-sided weakness and aphasia. CT Head w/ evolving Left JAVA CORE DEVELOPER infarct. MRI w/ areas of subacute infarct in Left JAVA CORE DEVELOPER, infarct of Left Thalamus and Right Inferior Cerebellar Hemisphere w/ possible areas of petechial hemorrhage in left occipital lobe and left thalamus. Patient was followed by Neurology. Recommends Aspirin. MRA, carotid ultrasound unremarkable, 2-D echocardiogram study was limited but grossly unremarkable per report. Patient had issues intermittently with swallowing. He improved and tolerated his diet per speech therapy recommendations. HTN: BP 218/94, HR 106 on arrival. Resume Losartan and Cardizem. BP improved. Right upper extremity pain: Shoulder pain in the ED. H/o recurrent falls w/ recent admit to [facility], +grimaces w/ palpation of right shoulder, Shoulder X- ray negative for fracture, Elbow xray shows advanced degenerative changes. - Pain control as needed. Hypokalemia: Replaced. A-fib: Chronic. Currently on aspirin, will need anticoagulant in a couple of weeks when the risk of hemorrhagic conversion is less per neurology. Currently in sinus rhythm. Resume Cardizem. Pt Condition on Discharge: Stable Discharge Disposition: Discharge to SNF Discharge Time: > 30 minutes Discharge Instructions DIET: Follow Instructions for: Heart Healthy Diet Speech Therapy-Diet Recommends: Pureed, [place] Thickened Liquids Activities you can perform: See Additionl Instruction Other Activity Instructions: Per PT isntructions. Follow up Referrals: Neurology - 03/03/17 with Addis French MD Call for appointment Physical Medicine & Rehab - 2 Months with Ayde Salas MD New Medications: Aspirin (Aspirin) 325 Mg Tab 325 MG PO DAILY #30 TAB Continued Medications: Cholecalciferol (Vitamin D3) 2,000 Unit Tab 2000 UNITS PO DAILY Nutritional Supplement #1 Ref 0 BOTTLE Diltiazem (Cardizem) 30 Mg Tab 30 MG PO QID AFIB #120 Ref [address] (Depakote DR) 250 Mg Tabdr 250 MG PO HS Control Seizures #60 Ref 0 TAB Donepezil (Donepezil) 5 Mg Tab 5 MG PO HS Dementia #30 Ref 0 TAB Gabapentin (Gabapentin) 300 Mg Cap 300 MG PO DAILY NEUROPATHY #60 Ref 0 CAP Lactobacillus Acidophilus (Probiotic) 1 Cap Cap 1 CAP PO DAILY DIGESTIVE SUPPORT Ref 0 CAP Pravastatin (Pravastatin) 20 Mg Tab 20 MG PO HS HYPERLIPIDEMIA #30 Ref 0 TAB Valsartan (Valsartan) 160 Mg Tab 160 MG PO DAILY HTN #30 Ref 0 TAB Ray Parker MD Feb 17, 2017 15:16
[2017-02-17 16:00] VITALS: BP 154/68; PULSE 74; RESP 16; TEMP 97.1; O2SAT 97
== END 2017-02-17 17:54 | DRG 66 ==
LOC: NEPC 16:34 → NEDA 19:32 → N05A 23:00 → HIME 02-11 18:45 → N05A 02-15 00:18
PROVIDERS: ADMIT Family Medicine; ATTEND Family Medicine
PROC: 0T9B70Z Drainage of Bladder with Drainage Device, Via Natural or Artificial Opening (ICD-10-PCS; principal; 2017-02-10)
DX: I63.332 Cerebral infarction due to thrombosis of left posterior cerebral artery (principal); I48.2 Chronic atrial fibrillation; R47.01 Aphasia; R13.10 Dysphagia, unspecified; F03.90 Unspecified dementia, unspecified severity, without behavioral disturbance, psychotic disturbance, mood disturbance, and anxiety; E86.0 Dehydration; I10 Essential (primary) hypertension; E78.00 Pure hypercholesterolemia, unspecified; E78.5 Hyperlipidemia, unspecified; Z86.73 Personal history of transient ischemic attack (TIA), and cerebral infarction without residual deficits; Z85.46 Personal history of malignant neoplasm of prostate; H91.90 Unspecified hearing loss, unspecified ear; R29.6 Repeated falls; M25.511 Pain in right shoulder; R90.82 White matter disease, unspecified; E87.6 Hypokalemia
CPT/HCPCS: 70450; 70544; 70551; 71010; 71101; 73030; 73080; 80048; 80053; 80061; 81001; 82140; 82550; 82948; 83036; 83605; 83735; 84132; 84484; 85025; 85027; 85610; 85730; 87040; 87641; 93005; 93306; 93880; 96360; J1644; J2270; J3480; J7030; J7040

== ENCOUNTER 2017-02-27 15:24 | Inpatient (IN) | payer MEDICARE, OTHER ==
[~2017-02-27] VITALS: Ht 167.6 cm; Wt 60.1 kg
[2017-02-27] VITALS (12 sets, daily range): BP systolic 90–155; BP diastolic 53–87; PULSE 74–91; RESP 14–18; TEMP 96.6–98.7; O2SAT 96–100
[~2017-02-27 15:24] MED LIST changes: +ASPI325T PO; -DEPA250T PO; +DEPA250T2 PO; +DILT31TA PO; -DIOV160T60 PO; -DONE5TAB14 PO; +DONE5TAB7 PO; -FISHCAP; +GABA300C5 PO; +LACTCAP8 PO; -PRAV20 PO; +PRAV20TA2 PO; -RIVA15 PO; +VALS1TAB65 PO; +VITA200012 PO
[2017-02-27] MEDS ORDERED: SODIUM CHLOR 0.9% 1000 ML INJ 1,000 ML IV SCH (15:27)
[2017-02-27] MEDS ORDERED: PROPOFOL 1000 MG/100 ML INJ 100 ML IV SCH (15:30)
[2017-02-27] MEDS ORDERED: SODIUM CHLORIDE 0.9% FLUSH 10 ML FLUSH IVF PRN ×2 (15:30)
[2017-02-27] MEDS ORDERED: VANCOMYCIN INJ 1,000 MG in SODIUM CHLOR 0.9% 250 ML INJ 250 ML IV STA (15:44)
[2017-02-27] MEDS ORDERED: PIPERACIL-TAZO 4.5 GM PREMIX 100 ML IV STA (15:44)
[2017-02-27] MEDS ORDERED: SODIUM CHLOR 0.9% 1000 ML INJ 1,000 ML IV ONE ×2 (15:45→18:15)
--- NOTE | 2017-02-27 15:50 | RADRPT ---
EXAM DATE/TIME: 02/27/2017 15:40 [facility] COMPARISON: CHEST SINGLE AP, February 16, 2017, 8:40. INDICATIONS : Syncope. MEDICAL HISTORY : Hypercholesterolemia. Diabetes mellitus type 2. Hypertension. SURGICAL HISTORY : None. ENCOUNTER: Initial ACUITY: 1 day PAIN SCORE: Non-responsive. LOCATION: Bilateral chest FINDINGS: A single view of the chest demonstrates the lungs to be symmetrically aerated without evidence of mas s, infiltrate or effusion. Interval placement of an endotracheal tube with the tip properly position ed above the aisha. The cardiomediastinal contours are unremarkable. Osseous structures are intact with some degenerative spurring of the dorsal spine. CONCLUSION: 1. Lungs are clear. 2. Endotracheal tube appropriately positioned above the aisha. Christophe Farr MD on February 27, 2017 at 15:43 Board Certified Radiologist. This report was verified electronically.
--- NOTE | 2017-02-27 16:18 | RADRPT ---
EXAM DATE/TIME: 02/27/2017 15:54 [facility] COMPARISON: CT BRAIN W/O CONTRAST, February 10, 2017, 17:11. INDICATIONS : Found unresponsive. History of recent left posterior cerebral artery stroke RADIATION DOSE: 37.98 CTDIvol (mGy) MEDICAL HISTORY : Cerebrovascular disease. Cardiovascular disease Hypertension. Diabetes SURGICAL HISTORY : None. ENCOUNTER: Initial ACUITY: 1 day PAIN SCALE: Non-responsive LOCATION: cranial TECHNIQUE: Multiple contiguous axial images were obtained of the head. Using automated exposure control and adj ustment of the mA and/or kV according to patient size, radiation dose was kept as low as reasonably a chievable to obtain optimal diagnostic quality images. FINDINGS: CEREBRUM: There is diffuse atrophic change. The lateral and third ventricles remain dilated but are unchanged. No evidence of acute midline shift, mass lesion, hemorrhage or acute infarction. The previously noted edema involving the left posterior cerebral artery stroke as decreased with only mild residual. No e xtra-axial fluid collections are seen. POSTERIOR FOSSA: The cerebellum and brainstem are intact. The 4th ventricle is midline. The cerebellopontine angle i s unremarkable. EXTRACRANIAL: The visualized portion of the orbits is intact. SKULL: The calvaria is intact. No evidence of skull fracture. CONCLUSION: 1. Interval decrease in the previously noted edema involving the left posterior cerebral artery strok e. There is only mild residual. 2. No acute hemorrhage or mass effect. 3. The ventricular system remains stable with dilatation of the lateral and third ventricles. Kamaljit Hurley MD on February 27, 2017 at 16:12 Board Certified Radiologist. This report was verified electronically.
[2017-02-27 16:24] LABS: AUTOMATED NEUTROPHIL # 23.6 TH/MM3 (1.8-7.7); BASOPHIL # 0.1 TH/MM3 (0-0.2); BASOPHIL % 0.3 % (0.0-2.0); HEMATOCRIT 44.8 % (39.0-51.0); LYMPH % 6.1 % (9.0-44.0); LYMPHOCYTE # 1.6 TH/MM3 (1.0-4.8); MEAN CELL VOLUME 91.3 FL (80.0-100.0); MEAN CORPUSCULAR HEMOGLOBIN 29.1 PG (27.0-34.0); MEAN CORPUSCULAR HGB CONC 31.9 % (32.0-36.0); NEUT % 89.6 % (16.0-70.0); PLATELET COUNT 246 TH/MM3 (150-450); RED CELL DISTRIBUTION WIDTH 14.9 % (11.6-17.2); WHITE BLOOD COUNT 26.3 TH/MM3 (4.0-11.0)
[2017-02-27 16:33] LABS: AMPHETAMINE, URINE NEG (NEG); BARBITURATES, URINE NEG (NEG); COCAINE, URINE NEG (NEG)
[2017-02-27 16:39] LABS: APTT (PATIENT) 26.1 SEC (24.3-30.1); PROTHROMBIN TIME - PATIENT 11.6 SEC (9.8-11.6)
[2017-02-27 16:39] LABS: BACTERIA, URINE MANY /hpf; BLOOD, URINE MOD (NEG); GLUCOSE,URINE NEG (NEG); KETONE, URINE NEG (NEG); MUCUS URINE MANY /lpf (OCC); NITRITE,URINE NEG (NEG); URINE COLOR YELLOW (YELLW/STRAW)
[2017-02-27 16:41] LABS: COMMENT (UR) CATH-CULTURE IND; CULTURE IF INDICATED CATH CULTURE IND
[2017-02-27 16:43] LABS: HEMO FLAGS AUTO DIFF
[2017-02-27] MEDS ORDERED: TRAZ50TA12 PO (16:58)
[2017-02-27 17:07] LABS: ALKALINE PHOSPHATASE 144 U/L (45-117); ALT (GPT) 55 U/L (12-78); ANION GAP 12 MEQ/L (5-15); AST (GOT) 78 U/L (15-37); BICARBONATE 23.1 MEQ/L (21.0-32.0); BLOOD UREA NITROGEN 127 MG/DL (7-18); CHLORIDE 123 MEQ/L (98-107); CREATINE KINASE 1077 U/L (39-308); GLOMERULAR FILTRATION RATE 10 ML/MIN (>89); TOTAL BILIRUBIN ADULT 0.8 MG/DL (0.2-1.0)
[2017-02-27 17:08] LABS: PLATELET ESTIMATE SMEAR NORMAL (NORMAL); PLATELET MORPHOLOGY NORMAL (NORMAL); POTASSIUM 5.1 MEQ/L (3.5-5.1); SCAN/DIFF AUTO DIFF CONFIRMED
[2017-02-27 17:09] LABS: SODIUM (NA) 158 MEQ/L (136-145)
[2017-02-27 17:26] LABS: CKMB 4.8 NG/ML (0.5-3.6)
--- NOTE | 2017-02-27 17:34 | PD ---
HPI Chief Complaint: Altered Mental Status Time Seen by Provider: 15:26 Travel History International Travel<30 days: No Contact w/Intl Traveler<30days: No History of Present Illness HPI Patient is a 89-year-old male who presents the emergency department for altered mental status from his nursing facility. Patient has history of A. fib, HLD and was recently admitted at [facility] from 02/10 through 02/17 for CVA. Patient has been convalescing at his rehabilitation facility where he was reportedly last seen normal week ago and today was noted to be GCS 3 prompting them to call EMS. Patient intubated per EMS. Vital signs stable en route. No family present and history is otherwise limited. Full code per EMS. PFSH Past Medical History Hx Anticoagulant Therapy: Yes (COUMADIN DAILY) Arthritis: No Asthma: No Autoimmune Disease: No Blood Disorders: No Anxiety: No Depression: No Heart Rhythm Problems: No Cancer: Yes (PROSTATE) Cardiovascular Problems: Yes (htn on meds) High Cholesterol: Yes Chemotherapy: Yes (2014 - PROSTATE CA) Chest Pain: No Congestive Heart Failure: No COPD: No Cerebrovascular Accident: Yes (X2 LAST ONE 2 YEARS AGO) Diminished Hearing: Yes Endocrine: No Gastrointestinal Disorders: No GERD: No Genitourinary: No Headaches: No Hiatal Hernia: No Hypertension: Yes Immune Disorder: No Implanted Vascular Access Dvce: No Kidney Stones: No Musculoskeletal: No Neurologic: Yes (HX OF TIA 7 YEARS AGO) Psychiatric: No Reproductive: No Respiratory: No Immunizations Current: No Radiation Therapy: Yes Renal Failure: No Seizures: No Sickle Cell Disease: No Sleep Apnea: No Thyroid Disease: No Triglycerides - High: Yes Ulcer: No ?: Unknown Past Surgical History Abdominal Surgery: No AICD: No Arteriovenous Shunt: No Cardiac Surgery: No Ear Surgery: No Endocrine Surgery: No Eye Surgery: Yes (R EYE CATARACT EXTRACTION) Genitourinary Surgery: No Gynecologic Surgery: No Insulin Pump: No Joint Replacement: No Neurologic Surgery: No Pacemaker: No Thoracic Surgery: No Other Surgery: Yes (VEIN STRIPPING BOTH LEGS) Social History Alcohol Use: Yes (WINE DAILY 1 GLASS DAILY) Tobacco Use: No Substance Use: No Allergies-Medications (Allergen,Severity, Reaction): Coded Allergies: Iodine (Verified Allergy, Severe, Anaphylaxis, 02/10/17) Reported Meds & Prescriptions Reported Meds & Active Scripts Active Aspirin 325 Mg Tab 325 Mg PO DAILY Reported Trazodone (Trazodone HCl) 50 Mg Tab 50 Mg PO HS Valsartan 160 Mg Tab 160 Mg PO DAILY Probiotic (Lactobacillus Acidophilus) 1 Cap Cap 1 Cap PO DAILY Pravastatin 20 Mg Tab 20 Mg PO HS Gabapentin 300 Mg Cap 300 Mg PO DAILY Donepezil 5 Mg Tab 5 Mg PO HS Depakote DR (Divalproex Sodium) 250 Mg Tabdr 250 Mg PO HS Vitamin D3 (Cholecalciferol) 2,000 Unit Tab 2,000 Units PO DAILY Review of Systems ROS Limitations: Clinical Condition, Intubated, Altered Mental Status Physical Exam Exam Limitations: Clinical Condition, Altered Mental Status Narrative GENERAL: Cachectic elderly male in no acute distress SKIN: Focused skin assessment warm/dry. HEAD: Atraumatic. Normocephalic. EYES: Pupils equal and round. 3 mm No scleral icterus. No injection or drainage. ENT: No nasal bleeding or discharge. Mucous membranes very dry. Endotracheal tube in good position NECK: Supple without nuchal rigidity CARDIOVASCULAR: Regular rate and rhythm. No murmur appreciated. RESPIRATORY: Coarse bilateral breath sounds. Thick sputum for endotracheal tube GASTROINTESTINAL: Abdomen soft, non-tender, nondistended. Scaphoid abdomen MUSCULOSKELETAL: No obvious deformities. No edema. NEUROLOGICAL: GCS 3. Occasionally gags on endotracheal tube Data Data Last Documented VS Vital Signs Date Time Temp Pulse Resp B/P Pulse Ox O2 Delivery O2 Flow Rate FiO2 02/27/17 16:54 74 14 155/69 99 02/27/17 16:30 Ventilator 100 02/27/17 16:06 96.8 Orders Electrocardiogram (02/27/17 15:27) Ammonia (02/27/17 15:27) Complete Blood Count With Diff (02/27/17 15:27) Comprehensive Metabolic Panel (02/27/17 15:27) Creatine Kinase (Cpk) (02/27/17 15:27) Prothrombin Time / Inr (Pt) (02/27/17 15:27) Act Partial Throm Time (Ptt) (02/27/17 15:27) Troponin I (02/27/17 15:27) Lactic Acid Sepsis Protocol (02/27/17 15:27) Urinalysis - C+S If Indicated (02/27/17 15:27) Arterial Blood Gas (Abg) (02/27/17 15:27) Blood Culture (02/27/17 15:27) Chest, Single Ap (02/27/17 15:27) Ct Brain W/O Iv Contrast(Rout) (02/27/17 15:27) Ecg Monitoring (02/27/17 15:27) Iv Access Insert/Monitor (02/27/17 15:27) Oximetry (02/27/17 15:27) Urinary Catheter Insert/Apply (02/27/17 15:27) Sodium Chloride 0.9% Flush (Ns Flush) (02/27/17 15:30) Sodium Chlor 0.9% 1000 Ml Inj (Ns 1000 M (02/27/17 15:27) Drug Screen, Random Urine (02/27/17 15:27) Alcohol (Ethanol) (02/27/17 15:27) Iv Access Insert/Monitor (02/27/17 15:27) Ng Gastric Tube Insert/Monitor (02/27/17 15:27) Sodium Chloride 0.9% Flush (Ns Flush) (02/27/17 15:30) Restraints Non-Violent BANDAR.Q3H (02/27/17 15:27) Valproic Acid (Depakene) (02/27/17 15:27) Propofol 1000 Mg/100 Ml Inj (Diprivan 10 (02/27/17 15:30) ^ Infusion (02/27/17 15:27) RASS (02/27/17 15:27) Neurological Rass Scale BANDAR.Q2H (02/27/17 15:27) Sputum Culture And Gram Stain (02/27/17 15:32) Fentanyl Inj (Fentanyl Inj) (02/27/17 15:45) Sodium Chlor 0.9% 1000 Ml Inj (Ns 1000 M (02/27/17 15:45) Vancomycin Inj (Vancomycin Inj) (02/27/17 15:44) Piperacil-Tazo 4.5 Gm Premix (Zosyn 4.5 (02/27/17 15:44) Urine Culture (02/27/17 16:05) CKMB (02/27/17 15:40) CKMB% (02/27/17 15:40) Consult Palliative Care (02/27/17 ) Admit Order (Ed Use Only) (02/27/17 17:17) Labs Laboratory Tests Test 02/27/17 02/27/17 15:40 16:05 White Blood Count 26.3 TH/MM3 Red Blood Count 4.90 MIL/MM3 Hemoglobin 14.3 GM/DL Hematocrit 44.8 % Mean Corpuscular Volume 91.3 FL Mean Corpuscular Hemoglobin 29.1 PG Mean Corpuscular Hemoglobin 31.9 % Concent Red Cell Distribution Width 14.9 % Platelet Count 246 TH/MM3 Mean Platelet Volume 9.3 FL Neutrophils (%) (Auto) 89.6 % Lymphocytes (%) (Auto) 6.1 % Monocytes (%) (Auto) 4.0 % Eosinophils (%) (Auto) 0.0 % Basophils (%) (Auto) 0.3 % Neutrophils # (Auto) 23.6 TH/MM3 Lymphocytes # (Auto) 1.6 TH/MM3 Monocytes # (Auto) 1.1 TH/MM3 Eosinophils # (Auto) 0.0 TH/MM3 Basophils # (Auto) 0.1 TH/MM3 CBC Comment AUTO DIFF Differential Comment AUTO DIFF CONFIRMED Platelet Estimate NORMAL Platelet Morphology Comment NORMAL Prothrombin Time 11.6 SEC Prothromb Time International 1.0 RATIO Ratio Activated Partial 26.1 SEC Thromboplast Time Sodium Level 158 MEQ/L Potassium Level 5.1 MEQ/L Chloride Level 123 MEQ/L Carbon Dioxide Level 23.1 MEQ/L Anion Gap 12 MEQ/L Blood Urea Nitrogen 127 MG/DL Creatinine 5.30 MG/DL Estimat Glomerular Filtration 10 ML/MIN Rate Random Glucose 112 MG/DL Lactic Acid Level 2.8 mmol/L Calcium Level 8.6 MG/DL Total Bilirubin 0.8 MG/DL Aspartate Amino Transf 78 U/L (AST/SGOT) Alanine Aminotransferase 55 U/L (ALT/SGPT) Alkaline Phosphatase 144 U/L Ammonia 36 MCMOL/L Total Creatine Kinase 1077 U/L Troponin I 0.10 NG/ML Total Protein 7.2 GM/DL Albumin 2.7 GM/DL Valproic Acid (Depakene) Level 18 MCG/ML Ethyl Alcohol Level LESS THAN 3 MG/DL Urine Color YELLOW Urine Turbidity CLOUDY Urine pH 7.0 Urine Specific [place] 1.020 Urine Protein 100 mg/dL Urine Glucose (UA) NEG mg/dL Urine Ketones NEG mg/dL Urine Occult Blood MOD Urine Nitrite NEG Urine Bilirubin NEG Urine Urobilinogen 2.0 MG/DL Urine Leukocyte Esterase LARGE Urine RBC 23 /hpf Urine WBC /hpf Urine WBC Clumps MOD Urine Bacteria MANY /hpf Urine Mucus MANY /lpf Microscopic Urinalysis Comment CATH-CULTURE IND Urine Opiates Screen NEG Urine Barbiturates Screen NEG Urine Amphetamines Screen NEG Urine Benzodiazepines Screen NEG Urine Cocaine Screen NEG Urine Cannabinoids Screen NEG MDM Medical Decision Making Medical Screen Exam Complete: Yes Emergency Medical Condition: Yes Medical Record Reviewed: Yes Differential Diagnosis 89-year-old male with history of A. fib, HLD and recent hospital admission for CVA here with altered mental status. GCS 3. Differential includes stroke, ischemic versus hemorrhagic, electrolyte abnormality, uremia, hyperammonemia, sepsis, pneumonia, UTI, hypoxia versus hypercapnia Narrative Course Patient met by myself upon emergency department arrival. Successfully intubated per EMS. Twelve-lead EKG shows sinus rhythm with bigeminy. Patient placed on propofol for gagging on endotracheal tube with prompt hypotension. Propofol stopped and patient occasionally given fentanyl for minimal sedation. Blood pressure responded after 2 L normal saline bolus. Patient empirically treated with vancomycin and Zosyn for possible sepsis. CBC, CMP, CPK, coags, troponin, lactic acid, urinalysis, ABG, urine drug screen, blood alcohol level, valproic acid level notable for WBC 26.3, sodium 158, BUN 127, creatinine 5.30, CPK 1077, troponin 0.10, lactate 2.8, urinalysis with evidence of UTI with white cells, leukocyte esterase, bacteria. Likely acute renal failure with UTI and sepsis that of been contributing to uremia and change in mental status. He been treated appropriately as above. Head CT with interval decrease in edema from previous CVA. No acute changes. Endotracheal tube in good position, chest x-ray otherwise unremarkable. Patient will be admitted to intensive this for further management. Palliative care consulting. Critical Care Narrative Aggregate critical care time was 50 minutes. Time to perform other separately billable procedures was not included in the critical care time. My time did not include minutes spent treating any other patients simultaneously or on activities that did not directly contribute to the patient's treatment. The services I provided to this patient were to treat and/or prevent clinically significant deterioration that could result in: Cardiopulmonary decompensation, neurologic decompensation, , disability I provided critical care services requiring my management, as noted below: Chart data review, documentation time, medication orders and management, vital sign assessments/reviewing monitor data, ordering and reviewing lab tests, ordering and interpreting/reviewing x-rays and diagnostic studies, care of the patient and discussion of the patient with the admitting physicians. Diagnosis Primary Impression: Acute respiratory failure Qualified Code: J96.01 - Acute respiratory failure with hypoxia and hypercapnia Additional Impressions: Uremia Acute renal failure Qualified Code: N17.9 - Acute renal failure, unspecified acute renal failure type Leukocytosis Qualified Code: D72.829 - Leukocytosis, unspecified type Hypernatremia Lactic acidosis Urinary tract infection Qualified Code: N10 - Acute pyelonephritis Rhabdomyolysis Qualified Code: M62.82 - Non-traumatic rhabdomyolysis Elevated troponin Hypercapnia Hypoxia Admitting Information Admitting Physician Requests: Admit America Wilkins MD Feb 27, 2017 17:34
[2017-02-27 17:52] LABS: BLOOD GAS BASE EXCESS -6.4 mmol/L (-2-2); BLOOD GAS CARBOXYHEMOGLOBIN 0.6 % (0-4); BLOOD GAS HCO3 19 mmol/L (22-26); BLOOD GAS METHEMOGLOBIN 0.8 % (0-2); BLOOD GAS O2 HGB SATURATION 98 % (90-100); BLOOD GAS OXYGEN CONTENT 17.4 Vol % (12.0-20.0); BLOOD GAS PCO2 38 mmHg (38-42); BLOOD GAS PO2 383 mmHG (61-120); BLOOD GAS TOTAL HGB 11.9 G/DL (12.0-16.0); TEMP CORR TO 98.6
[2017-02-27 17:53] LABS: CRITICAL VALUE NO; DRAW SITE RT BRACHIAL; FIO2 100 %; NUMBER OF ARTERIAL PUNCTURES 1; OXYGEN DEVICE VENTILATOR; STAT YES; ULNAR PULSE PRESENT
--- NOTE | 2017-02-27 17:56 | HHI.HP ---
HPI Service Critical Care Medicine Primary Care Physician Minor Saleh MD Admission Diagnosis sepsis, UTI, acute respiratory failure, acute renal failure, uremia Diagnosis: Travel History International Travel<30 Days: No Contact w/Intl Traveler <30 Da: No History of Present Illness Patient is a 89-year-old male who presented to the ED for altered mental status from his nursing facility. Patient has history of A. fib, hyperlipidemia and was recently admitted at [facility] from 02/10 through 02/17 for CVA. Patient has been convalescing at his rehabilitation facility where he was reportedly last seen normal week ago and today was noted to be GCS 3 prompting them to call EMS. Reportedly the patient's O2 sat was in the 70's, and the patient intubated per EMS. Vital signs stable en route. No family present and history is otherwise limited. Local [facility] medicine's consult for management. History PFSH Past Medical History Hx Anticoagulant Therapy: Yes (COUMADIN DAILY) Arthritis: No Asthma: No Autoimmune Disease: No Blood Disorders: No Anxiety: No Depression: No Heart Rhythm Problems: No Cancer: Yes (PROSTATE) Cardiovascular Problems: Yes (htn on meds) High Cholesterol: Yes Chemotherapy: Yes (2014 - PROSTATE CA) Chest Pain: No Congestive Heart Failure: No COPD: No Cerebrovascular Accident: Yes (X2 LAST ONE 2 YEARS AGO) Diminished Hearing: Yes Endocrine: No Gastrointestinal Disorders: No GERD: No Genitourinary: No Headaches: No Hiatal Hernia: No Hypertension: Yes Immune Disorder: No Implanted Vascular Access Dvce: No Kidney Stones: No Musculoskeletal: No Neurologic: Yes (HX OF TIA 7 YEARS AGO) Psychiatric: No Reproductive: No Respiratory: No Immunizations Current: No Radiation Therapy: Yes Renal Failure: No Seizures: No Sickle Cell Disease: No Sleep Apnea: No Thyroid Disease: No Triglycerides - High: Yes Ulcer: No ?: Unknown Past Surgical History Abdominal Surgery: No AICD: No Arteriovenous Shunt: No Cardiac Surgery: No Ear Surgery: No Endocrine Surgery: No Eye Surgery: Yes (R EYE CATARACT EXTRACTION) Genitourinary Surgery: No Gynecologic Surgery: No Insulin Pump: No Joint Replacement: No Neurologic Surgery: No Pacemaker: No Thoracic Surgery: No Other Surgery: Yes (VEIN STRIPPING BOTH LEGS) Social History Alcohol Use: Yes (WINE DAILY 1 GLASS DAILY) Tobacco Use: No Substance Use: No Allergies-Medications Allergies-Medications (Allergen,Severity, Reaction): Coded Allergies: Iodine (Verified Allergy, Severe, Anaphylaxis, 02/10/17) Reported Meds & Prescriptions Reported Meds & Active Scripts Active Aspirin 325 Mg Tab 325 Mg PO DAILY Reported Trazodone (Trazodone HCl) 50 Mg Tab 50 Mg PO HS Valsartan 160 Mg Tab 160 Mg PO DAILY Probiotic (Lactobacillus Acidophilus) 1 Cap Cap 1 Cap PO DAILY Pravastatin 20 Mg Tab 20 Mg PO HS Gabapentin 300 Mg Cap 300 Mg PO DAILY Donepezil 5 Mg Tab 5 Mg PO HS Depakote DR (Divalproex Sodium) 250 Mg Tabdr 250 Mg PO HS Vitamin D3 (Cholecalciferol) 2,000 Unit Tab 2,000 Units PO DAILY ROS Review of Systems ROS Limitations: Clinical Condition, Intubated, Altered Mental Status Physical Exam Vital Signs Vital Signs Date Time Temp Pulse Resp B/P Pulse Ox O2 Delivery O2 Flow Rate FiO2 02/27/17 16:54 74 14 155/69 99 02/27/17 16:30 74 14 Ventilator 100 02/27/17 16:18 96 100 02/27/17 16:06 96.8 86 14 90/53 Ventilator 100 02/27/17 16:00 96 100 02/27/17 15:27 98.7 82 14 116/56 98 Physical Exam GENERAL: This is a critically ill-appearing male intubated SKIN: Warm and dry. HEAD: Atraumatic. Normocephalic. EYES: Pupils equal and round. No scleral icterus. No injection or drainage. ENT: No nasal bleeding or discharge. Mucous membranes pink and moist. NECK: Trachea midline. No JVD. CARDIOVASCULAR: Normal rate, regular rhythm. RESPIRATORY: No accessory muscle use. Clear to auscultation. Breath sounds equal bilaterally. GASTROINTESTINAL: Abdomen soft, non-tender, nondistended. No guarding. MUSCULOSKELETAL: Extremities without clubbing, cyanosis, or edema. No obvious deformities. NEUROLOGICAL: GCS 3T Laboratory Laboratory Tests Test 02/27/17 02/27/17 15:40 16:05 White Blood Count 26.3 Red Blood Count 4.90 Hemoglobin 14.3 Hematocrit 44.8 Mean Corpuscular Volume 91.3 Mean Corpuscular Hemoglobin 29.1 Mean Corpuscular Hemoglobin 31.9 Concent Red Cell Distribution Width 14.9 Platelet Count 246 Mean Platelet Volume 9.3 Neutrophils (%) (Auto) 89.6 Lymphocytes (%) (Auto) 6.1 Monocytes (%) (Auto) 4.0 Eosinophils (%) (Auto) 0.0 Basophils (%) (Auto) 0.3 Neutrophils # (Auto) 23.6 Lymphocytes # (Auto) 1.6 Monocytes # (Auto) 1.1 Eosinophils # (Auto) 0.0 Basophils # (Auto) 0.1 CBC Comment AUTO DIFF Differential Comment AUTO DIFF CONFIRMED Platelet Estimate NORMAL Platelet Morphology Comment NORMAL Prothrombin Time 11.6 Prothromb Time International 1.0 Ratio Activated Partial 26.1 Thromboplast Time Sodium Level 158 Potassium Level 5.1 Chloride Level 123 Carbon Dioxide Level 23.1 Anion Gap 12 Blood Urea Nitrogen 127 Creatinine 5.30 Estimat Glomerular Filtration 10 Rate Random Glucose 112 Lactic Acid Level 2.8 Calcium Level 8.6 Total Bilirubin 0.8 Aspartate Amino Transf 78 (AST/SGOT) Alanine Aminotransferase 55 (ALT/SGPT) Alkaline Phosphatase 144 Ammonia 36 Total Creatine Kinase 1077 Creatine Kinase MB 4.8 Creatine Kinase MB % 0.4 Troponin I 0.10 Total Protein 7.2 Albumin 2.7 Valproic Acid (Depakene) Level 18 Ethyl Alcohol Level LESS THAN 3 Urine Color YELLOW Urine Turbidity CLOUDY Urine pH 7.0 Urine Specific [place] 1.020 Urine Protein 100 Urine Glucose (UA) NEG Urine Ketones NEG Urine Occult Blood MOD Urine Nitrite NEG Urine Bilirubin NEG Urine Urobilinogen 2.0 Urine Leukocyte Esterase LARGE Urine RBC 23 Urine WBC Urine WBC Clumps MOD Urine Bacteria MANY Urine Mucus MANY Microscopic Urinalysis Comment CATH-CULTURE IND Urine Opiates Screen NEG Urine Barbiturates Screen NEG Urine Amphetamines Screen NEG Urine Benzodiazepines Screen NEG Urine Cocaine Screen NEG Urine Cannabinoids Screen NEG Date/Time Procedure Status Source Growth 02/27/17 16:55 Gram Stain Received Sputum Endotracheal Pending 02/27/17 16:55 Sputum Culture Received Sputum Endotracheal Pending 02/27/17 16:05 Urine Culture Received Urine Catheterized Urine Pending 02/27/17 15:45 Aerobic Blood Culture Received Blood Peripheral Pending 02/27/17 15:45 Anaerobic Blood Culture Received Blood Peripheral Pending Result Diagram: 02/27/17 1540 02/27/17 1540 Imaging Last Impressions Head CT 02/27/17 1527 Signed Impressions: Service Date/Time: Monday, February 27, 2017 15:54 - CONCLUSION: 1. Interval decrease in the previously noted edema involving the left posterior cerebral artery stroke. There is only mild residual. 2. No acute hemorrhage or mass effect. 3. The ventricular system remains stable with dilatation of the lateral and third ventricles. Kamaljit Hurley MD Chest X-Ray 02/27/17 1527 Signed Impressions: Service Date/Time: Monday, February 27, 2017 15:40 - CONCLUSION: 1. Lungs are clear. 2. Endotracheal tube appropriately positioned above the aisha. Christophe Farr MD Septic Shock Reassessment Heart: Regular rate and rhythm Lungs: Clear Skin: Cold Peripheral Pulses: Bounding Right Radial Bounding Left Radial Bounding Right Dorsalis Pedis Bounding Left Dorsalis Pedis Capillary Refill: Brisk Assessment and Plan Assessment and Plan Plan by systems: Neurologic: Metabolic encephalopathy possibly secondary to sepsis History of posterior-superior cerebral artery stroke Hypothermia Neurochecks per ICU protocol Infusion needed for ventilator synchrony with initiated low-dose fentanyl, patient hemodynamically unstable and able to utilize propofol secondary to decrease in SVR Rectal temp 96.8, [place] Meagan hugger warming device 02/27 CT brainno acute hemorrhage or mass effect. Ventricular system stable with dilation of lateral and third ventricle. Will hold DVT prophylaxis, patient normally on Coumadin, and the patient was found down on the floor of the rehabilitation facility, will closely monitor coag status Respiratory: Acute hypoxic respiratory failure Possible aspiration Obtain ABG Mechanical ventilation , FiO2 currently 100% wean FiO2 to less than 50% Ventilator bundle Obtain head of bed greater than 30 Bronchodilators every 6 hours scheduled, every 2 hours when necessary Follow-up chest x-ray Cardiovascular: Cerebrovascular disease Cardiovascular disease Maintain MAP greater than 65 mmHg, consider vasopressor support if needed Renal: Hypernatremia Dehydration Hyperkalemia Bolused with 0.9 normal saline 1 L and the ED Bolus 1 L normal saline 1 Begin normal saline at 125 an hour Insert Presley catheter Monitor BMP -- Strict I/Os FEN/GI: ELISHA Insert orogastric tube Maintain NPO status Zofran when necessary for nausea Pepcid twice a day GI prophylaxis Heme/ID: Septic shock Urosepsis Leukocytosis Monitor serial lactate level, initial level 2.8 Initiate empiric antibiotics Follow-up blood urine and sputum cultures Endocrine: Glucose monitoring per ICU protocol -- SSI Prophylaxis: GI Prophylaxis Pepcid DVT Prophylaxis -- SCDs [ ] Lines: Peripheral IVs 2. Central line if indicated Dispo: my billing statement This patient remains critically ill with one or more organ systems which are or may become a threat to life. I have spent in excess of 49 minutes discontinuously in the care and management of this patient. This time is exclusive of procedures, and includes, but is not limited to, evaluation of the patient, review of the medical record, discussions with family, consultants, nursing staff, or respiratory therapy, and documentation in the medical record. Code Status Full Discussed Condition With Patient's and daughter, ED RN at bedside Erin Cornell MD Feb 27, 2017 17:56 Erin Cornell MD Feb 27, 2017 17:56
[2017-02-27] MEDS: SODIUM CHLOR 0.9% 1000 ML INJ 1,000 ML IV SCH (17:57)
[2017-02-27] MEDS: ARTIFICIAL TEARS OPTH SOLN 15 ML BTL EACH EYE SCH (18:00)
[2017-02-27] MEDS ORDERED: SODIUM CHLORIDE 0.9% FLUSH 10 ML FLUSH IV FLUSH PRN (18:00)
[2017-02-27] MEDS ORDERED: ACETAMINOPHEN 325 MG TAB PO PRN (18:00)
[2017-02-27] MEDS ORDERED: CHLORHEXIDINE GLUCONATE 2 % 1 PACK (2 CLOTHS) TOP PRN (18:00)
[2017-02-27] MEDS ORDERED: CEFEPIME INJ 2,000 MG in SODIUM CHLORIDE 0.9% INJ 100 ML IV SCH (18:00)
[2017-02-27] MEDS ORDERED: MISCELLANEOUS NURSING INFORMATION XX SCH (18:00)
[2017-02-27] MEDS ORDERED: Gentamicin Consult Pharmacy 1 EA XX SCH (18:00)
[2017-02-27 18:16] LABS: LACTIC ACID GHOST NOT REPORTABLE
[2017-02-27 19:39] LABS: BLOOD GAS BASE EXCESS -4.9 mmol/L (-2-2); BLOOD GAS CARBOXYHEMOGLOBIN 0.6 % (0-4); BLOOD GAS HCO3 19 mmol/L (22-26); BLOOD GAS METHEMOGLOBIN 0.7 % (0-2); BLOOD GAS O2 HGB SATURATION 97 % (90-100); BLOOD GAS PCO2 32 mmHg (38-42); BLOOD GAS PO2 116 mmHG (61-120); BLOOD GAS TOTAL HGB 13.1 G/DL (12.0-16.0); CRITICAL VALUE NO; DRAW SITE LT RADIAL; FIO2 50 %; NUMBER OF ARTERIAL PUNCTURES 1; OXYGEN DEVICE VENTILATOR; TEMP CORR TO 98.6; ULNAR PULSE PRESENT; VENT SETTINGS 18/500/5PEEP
[2017-02-27 19:40] LABS: STAT YES
[2017-02-27] MEDS: CHLORHEXIDINE 0.12% (ORAL KIT) 15 ML CUP MT SCH (20:00)
[2017-02-27] MEDS: DOCUSATE SODIUM 100 MG/10 ML UDC G-TUBE SCH (21:00)
[2017-02-27] MEDS: SODIUM CHLORIDE 0.9% FLUSH 10 ML FLUSH IV FLUSH SCH (21:00)
[2017-02-27] MEDS ORDERED: BISACODYL 10 MG SUPP RECTAL PRN (21:00)
[2017-02-27] MEDS ORDERED: ONDANSETRON HCL 4 MG/2 ML VIAL IV PRN (21:00)
[2017-02-27] MEDS ORDERED: SENNOSIDES SYRUP 8.8 MG/5 ML CUP G-TUBE PRN (21:00)
[2017-02-27] MEDS: FAMOTIDINE 20 MG/2 ML VIAL IV PUSH SCH (21:21)
[2017-02-27] MEDS: CEFEPIME 1000 MG/NS 100 ML IV SCH ×2 (21:21)
[2017-02-27] MEDS ORDERED: SODIUM CHLORIDE 0.9% IV ONE (22:00)
[2017-02-27] MEDS ORDERED: GENTAMICIN IV ONE (22:00)
[2017-02-27] MEDS ORDERED: RESP: ALBUTEROL 2.5 MG/IPRATROPIUM 0.5 MG NEB (PRN) INH (22:00)
[2017-02-27] MEDS: RESP: ALBUTEROL 2.5 MG/IPRATROPIUM 0.5 MG NEB (SCH) INH (22:28)
[2017-02-28] VITALS (23 sets, daily range): BP systolic 123–181; BP diastolic 56–75; PULSE 80–103; RESP 18–33; TEMP 98.3–99.9; O2SAT 98–100
[2017-02-28] MEDS: CHLORHEXIDINE GLUCONATE 2 % 1 PACK (2 CLOTHS) TOP SCH (01:08)
[2017-02-28] MEDS: RESP: ALBUTEROL 2.5 MG/IPRATROPIUM 0.5 MG NEB (SCH) INH ×4 (03:15→20:31)
[2017-02-28 05:24] LABS: BLOOD GAS BASE EXCESS -6.7 mmol/L (-2-2); BLOOD GAS HCO3 18 mmol/L (22-26); BLOOD GAS METHEMOGLOBIN 1.3 % (0-2); BLOOD GAS O2 HGB SATURATION 97 % (90-100); BLOOD GAS OXYGEN CONTENT 18.5 Vol % (12.0-20.0); BLOOD GAS PCO2 32 mmHg (38-42); BLOOD GAS PO2 206 mmHg (61-120); BLOOD GAS TOTAL HGB 13.3 G/DL (12.0-16.0); CRITICAL VALUE NO; TEMP CORR TO 98.6
[2017-02-28 05:26] LABS: OXYGEN DEVICE VENTILATOR
[2017-02-28 05:27] LABS: DRAW SITE RT BRACHIAL; FIO2 50 %; NUMBER OF ARTERIAL PUNCTURES 1; STAT NO; ULNAR PULSE PRESENT
[2017-02-28 05:48] LABS: AUTOMATED NEUTROPHIL # 19.1 TH/MM3 (1.8-7.7); BASOPHIL % 0.2 % (0.0-2.0); HEMATOCRIT 42.9 % (39.0-51.0); HEMO FLAGS DIFF FINAL; LYMPH % 5.3 % (9.0-44.0); LYMPHOCYTE # 1.1 TH/MM3 (1.0-4.8); MEAN CELL VOLUME 91.6 FL (80.0-100.0); MEAN CORPUSCULAR HEMOGLOBIN 29.2 PG (27.0-34.0); MEAN CORPUSCULAR HGB CONC 31.9 % (32.0-36.0); MONO % 3.9 % (0.0-8.0); NEUT % 90.6 % (16.0-70.0); PLATELET COUNT 169 TH/MM3 (150-450); RED BLOOD COUNT 4.69 MIL/MM3 (4.50-5.90); RED CELL DISTRIBUTION WIDTH 15.2 % (11.6-17.2); WHITE BLOOD COUNT 21.1 TH/MM3 (4.0-11.0)
[2017-02-28 05:55] LABS: ALKALINE PHOSPHATASE 134 U/L (45-117); ALT (GPT) 45 U/L (12-78); ANION GAP 10 MEQ/L (5-15); AST (GOT) 63 U/L (15-37); BICARBONATE 20.1 MEQ/L (21.0-32.0); BLOOD UREA NITROGEN 95 MG/DL (7-18); CHLORIDE 132 MEQ/L (98-107); GLOMERULAR FILTRATION RATE 21 ML/MIN (>89); MAGNESIUM 2.9 MG/DL (1.5-2.5); POTASSIUM 3.6 MEQ/L (3.5-5.1); RANDOM GENTAMICIN 7.7 MCG/ML; TOTAL BILIRUBIN ADULT 0.7 MG/DL (0.2-1.0)
[2017-02-28 05:58] LABS: SODIUM (NA) 162 MEQ/L (136-145)
--- NOTE | 2017-02-28 06:21 | RADRPT ---
EXAM DATE/TIME: 02/28/2017 05:39 [facility] COMPARISON: CHEST SINGLE AP, February 27, 2017, 15:40. INDICATIONS : Shortness of breath. MEDICAL HISTORY : Hypertension. Cardiovascular disease. SURGICAL HISTORY : None. ENCOUNTER: Subsequent ACUITY: 2 days PAIN SCORE: Non-responsive. LOCATION: Bilateral chest FINDINGS: A single view of the chest demonstrates the lungs to be symmetrically aerated without evidence of mas s, infiltrate or effusion. The endotracheal tube and NG tube are in good position. The cardiomediast inal contours are unremarkable. Osseous structures are intact. CONCLUSION: No acute pulmonary infiltrates. No significant change. Cosme Wolf MD on February 28, 2017 at 6:20 Board Certified Radiologist. This report was verified electronically.
[2017-02-28] MEDS: SODIUM CHLOR 0.9% 1000 ML INJ 1,000 ML IV SCH (08:39)
[2017-02-28] MEDS: CHLORHEXIDINE 0.12% (ORAL KIT) 15 ML CUP MT SCH (08:39)
[2017-02-28] MEDS: FAMOTIDINE 20 MG/2 ML VIAL IV PUSH SCH ×2 (08:40→21:36)
[2017-02-28] MEDS: ARTIFICIAL TEARS OPTH SOLN 15 ML BTL EACH EYE SCH ×3 (08:40→15:55)
[2017-02-28] MEDS: DOCUSATE SODIUM 100 MG/10 ML UDC G-TUBE SCH ×2 (08:40→21:36)
[2017-02-28] MEDS: SODIUM CHLORIDE 0.9% FLUSH 10 ML FLUSH IV FLUSH SCH ×2 (08:41→21:00)
--- NOTE | 2017-02-28 08:58 | EKG ---
Date Performed: 02/27/2017 Time Performed: 16:48:19 PTAGE: 89 years EKG: Sinus rhythm WITH FREQUENT VENTRICULAR PREMATURE COMPLEXES NONSPECIFIC ST & T-WAVE ABNORMALITY ABNORMAL RHYTHM EC G PREVIOUS TRACING : 02/10/2017 16.46 Compared to previous tracing, PVCs are now present, heart r ate has slowed. DOCTOR: Jb Lafleur Interpretating Date/Time 02/28/2017 08:56:00
[2017-02-28] MEDS ORDERED: GLUCAGON 1 MG/ML VIAL OTHER PRN (09:15)
[2017-02-28] MEDS ORDERED: DEXTROSE 50% IN WATER 50 ML VIAL(D50) IV PUSH PRN (09:15)
--- NOTE | 2017-02-28 09:15 | HHI.CCPN ---
Subjective Remarks/Hospital Course Patient is a 89-year-old male who presented to the ED for altered mental status from his nursing facility. Patient has history of A. fib, hyperlipidemia and was recently admitted at [facility] from 02/10 through 02/17 for CVA. Patient has been convalescing at his rehabilitation facility where he was reportedly last seen normal week ago and today was noted to be GCS 3 prompting them to call EMS. Reportedly the patient's O2 sat was in the 70's, and the patient intubated per EMS. Vital signs stable en route. No family present and history is otherwise limited. Critical care medicine's consult for management. 02/28 Patient remains intubated, on no sedation. Objective Vital Signs Date Time Temp Pulse Resp B/P Pulse Ox O2 Delivery O2 Flow Rate FiO2 02/28/17 08:06 100 35 02/28/17 06:00 90 02/28/17 04:00 98.7 18 170/75 02/27/17 23:29 Ventilator Intake and Output 02/27/17 02/27/17 02/28/17 08:00 16:00 00:00 Output Total 500 ml Balance -500 ml Result Diagram: 02/28/17 0503 02/28/17 0503 Other Results Laboratory Tests Test 02/27/17 02/27/17 02/27/17 02/27/17 15:40 16:05 17:30 19:00 White Blood Count 26.3 TH/MM3 Red Blood Count 4.90 MIL/MM3 Hemoglobin 14.3 GM/DL Hematocrit 44.8 % Mean Corpuscular Volume 91.3 FL Mean Corpuscular Hemoglobin 29.1 PG Mean Corpuscular Hemoglobin 31.9 % Concent Red Cell Distribution Width 14.9 % Platelet Count 246 TH/MM3 Mean Platelet Volume 9.3 FL Neutrophils (%) (Auto) 89.6 % Lymphocytes (%) (Auto) 6.1 % Monocytes (%) (Auto) 4.0 % Eosinophils (%) (Auto) 0.0 % Basophils (%) (Auto) 0.3 % Neutrophils # (Auto) 23.6 TH/MM3 Lymphocytes # (Auto) 1.6 TH/MM3 Monocytes # (Auto) 1.1 TH/MM3 Eosinophils # (Auto) 0.0 TH/MM3 Basophils # (Auto) 0.1 TH/MM3 CBC Comment AUTO DIFF Differential Comment AUTO DIFF CONFIRMED Platelet Estimate NORMAL Platelet Morphology Comment NORMAL Prothrombin Time 11.6 SEC Prothromb Time International 1.0 RATIO Ratio Activated Partial 26.1 SEC Thromboplast Time Sodium Level 158 MEQ/L Potassium Level 5.1 MEQ/L Chloride Level 123 MEQ/L Carbon Dioxide Level 23.1 MEQ/L Anion Gap 12 MEQ/L Blood Urea Nitrogen 127 MG/DL Creatinine 5.30 MG/DL Estimat Glomerular Filtration 10 ML/MIN Rate Random Glucose 112 MG/DL Lactic Acid Level 2.8 mmol/L 2.2 mmol/L Calcium Level 8.6 MG/DL Total Bilirubin 0.8 MG/DL Aspartate Amino Transf 78 U/L (AST/SGOT) Alanine Aminotransferase 55 U/L (ALT/SGPT) Alkaline Phosphatase 144 U/L Ammonia 36 MCMOL/L Total Creatine Kinase 1077 U/L Creatine Kinase MB 4.8 NG/ML Creatine Kinase MB % 0.4 % Troponin I 0.10 NG/ML Total Protein 7.2 GM/DL Albumin 2.7 GM/DL Valproic Acid (Depakene) Level 18 MCG/ML Ethyl Alcohol Level LESS THAN 3 MG/DL Urine Color YELLOW Urine Turbidity CLOUDY Urine pH 7.0 Urine Specific [place] 1.020 Urine Protein 100 mg/dL Urine Glucose (UA) NEG mg/dL Urine Ketones NEG mg/dL Urine Occult Blood MOD Urine Nitrite NEG Urine Bilirubin NEG Urine Urobilinogen 2.0 MG/DL Urine Leukocyte Esterase LARGE Urine RBC 23 /hpf Urine WBC /hpf Urine WBC Clumps MOD Urine Bacteria MANY /hpf Urine Mucus MANY /lpf Microscopic Urinalysis Comment CATH-CULTURE IND Urine Opiates Screen NEG Urine Barbiturates Screen NEG Urine Amphetamines Screen NEG Urine Benzodiazepines Screen NEG Urine Cocaine Screen NEG Urine Cannabinoids Screen NEG Blood Gas Puncture Site RT BRACHIAL Blood Gas Patient Temperature 98.6 Blood Gas HCO3 19 mmol/L Blood Gas Base Excess -6.4 mmol/L Blood Gas Oxygen Saturation 98 % Arterial Blood pH 7.31 Arterial Blood Partial 38 mmHg Pressure CO2 Arterial Blood Partial 383 mmHG Pressure O2 Arterial Blood Oxygen Content 17.4 Vol % Arterial Blood 0.6 % Carboxyhemoglobin Arterial Blood Methemoglobin 0.8 % Blood Gas Hemoglobin 11.9 G/DL Oxygen Delivery Device VENTILATOR Blood Gas Ventilator Setting Blood Gas Inspired Oxygen 100 % Test 02/27/17 02/27/17 02/28/17 02/28/17 19:28 22:38 00:30 05:03 Blood Gas Puncture Site LT RADIAL Blood Gas Patient Temperature 98.6 Blood Gas HCO3 19 mmol/L Blood Gas Base Excess -4.9 mmol/L Blood Gas Oxygen Saturation 97 % Arterial Blood pH 7.40 Arterial Blood Partial 32 mmHg Pressure CO2 Arterial Blood Partial 116 mmHG Pressure O2 Arterial Blood Oxygen Content 18.0 Vol % Arterial Blood 0.6 % Carboxyhemoglobin Arterial Blood Methemoglobin 0.7 % Blood Gas Hemoglobin 13.1 G/DL Oxygen Delivery Device VENTILATOR Blood Gas Ventilator Setting 18/500/5PEEP Blood Gas Inspired Oxygen 50 % Lactic Acid Level 1.4 mmol/L 2.0 mmol/L Nasal Screen MRSA (PCR) MRSA NOT DETECTED White Blood Count 21.1 TH/MM3 Red Blood Count 4.69 MIL/MM3 Hemoglobin 13.7 GM/DL Hematocrit 42.9 % Mean Corpuscular Volume 91.6 FL Mean Corpuscular Hemoglobin 29.2 PG Mean Corpuscular Hemoglobin 31.9 % Concent Red Cell Distribution Width 15.2 % Platelet Count 169 TH/MM3 Mean Platelet Volume 9.1 FL Neutrophils (%) (Auto) 90.6 % Lymphocytes (%) (Auto) 5.3 % Monocytes (%) (Auto) 3.9 % Eosinophils (%) (Auto) 0.0 % Basophils (%) (Auto) 0.2 % Neutrophils # (Auto) 19.1 TH/MM3 Lymphocytes # (Auto) 1.1 TH/MM3 Monocytes # (Auto) 0.8 TH/MM3 Eosinophils # (Auto) 0.0 TH/MM3 Basophils # (Auto) 0.0 TH/MM3 CBC Comment DIFF FINAL Differential Comment Sodium Level 162 MEQ/L Potassium Level 3.6 MEQ/L Chloride Level 132 MEQ/L Carbon Dioxide Level 20.1 MEQ/L Anion Gap 10 MEQ/L Blood Urea Nitrogen 95 MG/DL Creatinine 2.80 MG/DL Estimat Glomerular Filtration 21 ML/MIN Rate Random Glucose 107 MG/DL Calcium Level 7.8 MG/DL Phosphorus Level 3.6 MG/DL Magnesium Level 2.9 MG/DL Total Bilirubin 0.7 MG/DL Aspartate Amino Transf 63 U/L (AST/SGOT) Alanine Aminotransferase 45 U/L (ALT/SGPT) Alkaline Phosphatase 134 U/L Total Protein 6.4 GM/DL Albumin 2.3 GM/DL Random Gentamicin Level 7.7 MCG/ML Test 02/28/17 05:15 Blood Gas Puncture Site RT BRACHIAL Blood Gas Patient Temperature 98.6 Blood Gas HCO3 18 mmol/L Blood Gas Base Excess -6.7 mmol/L Blood Gas Oxygen Saturation 97 % Arterial Blood pH 7.36 Arterial Blood Partial 32 mmHg Pressure CO2 Arterial Blood Partial 206 mmHg Pressure O2 Arterial Blood Oxygen Content 18.5 Vol % Arterial Blood 1.0 % Carboxyhemoglobin Arterial Blood Methemoglobin 1.3 % Blood Gas Hemoglobin 13.3 G/DL Oxygen Delivery Device VENTILATOR Blood Gas Ventilator Setting Blood Gas Inspired Oxygen 50 % Imaging Last Impressions Chest X-Ray 02/28/17 0600 Signed Impressions: Service Date/Time: Tuesday, February 28, 2017 05:39 - CONCLUSION: No acute pulmonary infiltrates. No significant change. Cosme Wolf MD Head CT 02/27/17 1527 Signed Impressions: Service Date/Time: Monday, February 27, 2017 15:54 - CONCLUSION: 1. Interval decrease in the previously noted edema involving the left posterior cerebral artery stroke. There is only mild residual. 2. No acute hemorrhage or mass effect. 3. The ventricular system remains stable with dilatation of the lateral and third ventricles. Kamaljit Hurley MD Objective Remarks GENERAL: This is a critically ill-appearing male intubated SKIN: Warm and dry. HEAD: Atraumatic. Normocephalic. EYES: Pupils equal and round. No scleral icterus. No injection or drainage. ENT: No nasal bleeding or discharge. Mucous membranes pink and moist. NECK: Trachea midline. No JVD. CARDIOVASCULAR: Normal rate, regular rhythm. RESPIRATORY: No accessory muscle use. Clear to auscultation. Breath sounds equal bilaterally. GASTROINTESTINAL: Abdomen soft, non-tender, nondistended. No guarding. MUSCULOSKELETAL: Extremities without clubbing, cyanosis, or edema. No obvious deformities. NEUROLOGICAL: Intubated and sedated A/P Assessment and Plan Plan by systems: Neurologic: Metabolic encephalopathy possibly secondary to sepsis History of posterior-superior cerebral artery stroke Hypothermia Neurochecks per ICU protocol Fentanyl infusion if needed for sedation. Avoid sedatives. 02/27 CT brain decrease in the previously noted edema involving the left posterior cerebral artery stroke. No acute hemorrhage or mass effect. The ventricular system remains stable with dilatation of the lateral and third ventricles. Respiratory: Acute hypoxic respiratory failure Possible aspiration Continue with vent support keep sat >92% Bronchodilators every 6 hours scheduled, every 2 hours when necessary ICU vent bundle, start SBT trials as melody CXT today: No pulm infiltrates. Cardiovascular: Cerebrovascular disease Cardiovascular disease Place on Lopressor 25mg Q12. Monitor HR and BP keep MAP >65 mmHg, Hydralazine 10mg IV Q6PRN SBP>160. Lactic acid level 2.0 this morning. Renal: Hypernatremia Dehydration ARF- improving Monitor renal function, I/O;s, avoid nephrotoxins Renal function improving with Cr: 2.8 from 5.3 Change IVF D5W@100m/hr, Place on Free H20 250ml Q6 monitor sodium level. FEN/GI: Pepcid twice a day GI prophylaxis. Start TF- Nepro with goal rate 40ml/hr Heme/ID: Septic shock Urosepsis Leukocytosis...trending down Continue with Cefepime. d/c Gentamicin. Patient was given Cefepime and Vanco in ED. Monitor for signs of infections ( fever, WBC) WBC trending down. CXR on arrival: Clear lungs. Follow up on cultures from 02/27 ( Blood, sputum, urine) Endocrine: Glucose monitoring per ICU protocol -- SSI Prophylaxis: GI Prophylaxis Pepcid DVT Prophylaxis -- SCDs, heparin SQ Lines: Peripheral IVs 2. CCT 30 mins Elie Lo MD Feb 28, 2017 09:15
[2017-02-28] MEDS: INSULIN NovoLIN REGULAR SUPPLEMENTAL SCALE SQ SCH ×3 (10:00→21:36)
[2017-02-28] MEDS: DEXTROSE 5% IN WATE 1000ML INJ 1,000 ML IV SCH ×2 (10:27→21:01)
[2017-02-28] MEDS: FREE WATER G-TUBE SCH ×3 (10:27→18:00)
--- NOTE | 2017-02-28 11:28 | OTEVALIP ---
CLINICAL HISTORY: PATIENT IS A 88 Y/O Male REFERRED TO OCCUPATIONAL THERAPY BY DR. ELOY MADISON. PATIENT ADMITTED WITH LEFT SIDED WEAKNESS WITH A DIAGNOSIS OF TIA. MRI OF THE BRAIN SHOWED RIGHT PARIETAL OCCIPITAL CORTICAL AREA OF PUNCTUATED DIFFUSION ABNORMALITY CONSISTENT WITH SMALL AREA OF ACUTE STROKE. TIME EVALUATION COMPLETED: PM PHYSICIAN ORDER STATES: OCCUPATIONAL THERAPY EVALUATE AND TREAT PAST MEDICAL/SURGICAL HISTORY: CEREBRAL VASCULAR ACCIDENT IN 2012, HYPERLIPIDEMIA, HYPERTENSION, PROSTATE CANCER, TIA 7 YEARS AGO PRIOR LEVEL OF FUNCTION: PATIENT REPORTED LIVING WITH HIS SPOUSE IN A ONE LEVEL HOME. PATIENT WAS INDEPENDENT IN ACTIVITIES OF DAILY LIVING AND AMBULATED WITHOUT A DEVICE. FALLS: NONE CURRENT EQUIPMENT USE: NONE PRECAUTIONS: HEAD OF BED FLAT PAIN: NO COMPLAINT OF PAIN OBJECTIVE: CURRENT LEVEL OF FUNCTION: PATIENT FOUND WITH HEAD OF BED FLAT, IV IN PLACE. COGNITIVE: ALERTNESS ATTENTION SPAN COMPREHENSION AND RECALL X Alert X Intact X Follows simple commands Drowsy Mildly Distracted Follows complex commands Lethargic Easily Distracted Follows commands inconsistently Responds to noxious stimulation Unable to attend to given task Follows no commands Unresponsive ORIENTATION MEMORY COMMUNICATION X Person X Place SHORT TERM MEMORY Intubated / Trach X Day X Month Intact X Clear X Year X Insight to disability X Impaired Slurred speech X Birthday Poor insight to disability Nonverbal Hard of Hearing Impaired/unintelligible HALF-WAY MEMORY Aphasia Expressive X Intact Receptive Impaired Global Comments: PERCEPTUAL:. HEMIANOPSIA NEGLECT OCULAR PURSUITS SPATIAL RELATIONS Right Right X Intact, eyes follow object X Intact Left Left Impaired, has difficulty tracking Impaired X Not Present X Not Present Absent, unable to track a moving object Not Tested Not Tested Not Tested Not Tested Glasses Yes COMPLAINT OF No Double Vision Blurry Vision Reading only X No Complaints Not Tested Comments: UPPER EXTREMITY STATUS: Hand dominance: Right _X__ Left ___ Unknown ___ RANGE OF MOTION MUSCLE STRENGTH GROSS COORDINATION RIGHT LEFT AROM RIGHT LEFT RIGHT LEFT Within normal limits X Normal (5) X Intact X X Within functional limits X Good (4) X Mildly Impaired Decreased Fair (3) Severely Impaired Spontaneous movements Poor (2) Tremors present Absent Trace (1) Finger to Nose PROM Absent (0) Intact X X WFL Not Applicable Impaired Decreased MUSCLE TONE SENSATION FINE MOTOR RIGHT LEFT RIGHT LEFT RIGHT LEFT X X Normal X Intact X Intact Flaccid Impaired light touch X Mildly Impaired Decreased Tone Impaired proprioception Severely Impaired Increased spasticity X Complaint of numbness Subluxation Complaint of tingling No Complaint Edema Unable to Assess Comments: REPORTED DIFFICULTY WITH FINE MOTOR SKILLS SOMETIMES DROPPING THINGS WITH LEFT HAND. Cason: 1 2 3 4 5 6 7 8 CASON: (1) Total assist (2) Maximal assist (3) Moderate assist (4) Minimal Contact assist (5) Supervision/Setup (6) Modified independence (7) Complete independence (8) Not tested FUNCTIONAL MOBILITY Rolling in bed X Moving from supine to short sit X Moving from short sit to supine X Transfer from sit to stand X Transfer from bed to chair X Transfer from chair to bed X Stretcher chair transfer X ACTIVITIES OF DAILY LIVING Feeding X Grooming X Dressing upper body X Dressing lower body X Toileting X Bathing X Environmental Controls X Comments: PER PHYSICAL THERAPY INDEPENDENT FOR TRANSFERS AND STANDBY ASSIST FOR AMBULATION. PATIENT IS NOW ON HEAD OF BED FLAT PER NURSING. INDEPENDENT TO [facility] GOWN _X_ Pt reminded to not get out of the bed or chair without assistance. Call lazar left within reach. EDUCATION: Occupational Therapy Intervention & Plan of Care: SAFETY, PATIENT WAS EDUCATED ON SIGN AND SYMPTOMS THAT REQUIRE IMMEDIATE ATTENTION AND WAS INSTRUCTED TO SEEK HELP IF ANY NOTED. UPPER EXTREMITY RANGE OF MOTION AND COORDINATION RE-EDUCATION Patient Family X__ __ Patient presented with good understanding __ __ Will require re-education __ __ Unable to educate ASSESSMENT: PATIENT ADMITTED WITH A STROKE WITH LEFT SIDE WEAKNESS, PATIENT WAS ALERT & ORIENTED X3, ABLE TO FOLLOW DIRECTIONS AND EXPRESS HIS NEEDS. PATIENT PRESENTS WITH DECREASE MILD LEFT UPPER EXTREMITY COORDINATION AND STRENGTH. ACTIVITIES OF DAILY LIVING TO BE FURTHER ASSESS ONCE CLEARED FROM HEAD OF BED FLAT. PLAN: DISCHARGE RECOMMENDATION/ATTENTION CASE MANAGEMENT: HOME __ Goals, rehabilitation potential, and treatment plan not applicable to this patient __ OT treatment not indicated - OT signs off __ [facility] facility __ Rehab setting __ Outpatient setting __ Home therapy __ Other: __Recommended equipment: DISABILITY ELEMENTS SCORE FOR FEEDIN INDEPENDENT FOR FEEDING INTERDISCIPLINARY COMMUNICATION: SPOKE WITH NURSING AND PHYSICAL THERAPY REHABILITATION POTENTIAL: _X_ Good __ Fair __ Guarded BARRIERS TO ATTAINING GOALS: _X_ None __ Decrease level of alertness __ Pain __ Need of Intensive Care __ Cognitive deficits __ Ventilator __ Other: GOALS: STGs: 1) WILL BE INDEPENDENT IN RANGE OF MOTION AND COORDINATION RE-EDUCATION PROGRAM TO INCREASE FUNCTIONAL USE 2) WILL BE INCREASE LEFT UPPER EXTREMITY STRENGTH BY ONE GRADE TO ALLOW PATIENT TO OPEN JARS, CUT FOOD ETC, 3) FURTHER ASSESS ACTIVITIES OF DAILY LIVING LTGs: 1) MAXIMIZE ACTIVITIES OF DAILY LIVING WITH THE USE OF ADAPTIVE EQUIPMENT NEEDED. FREQUENCY: __ 1/2 x Week _X_ 3/5 x Weeks __ Other: DURATION: __ 1 Weeks __ 2 Weeks _X_ 4 Weeks __ Length of Stay Patient or Family participated in development of goals and plan of care: X__ Yes __ No __ Unable __ Goal(s): GO HOME TREATMENT PLAN (MODALITIES): PATIENT/FAMILY EDUCATION, ACTIVITIES OF DAILY LIVING, THERAPEUTIC ACTIVITIES, NEUROMUSCULAR RE-EDUCATION, THERAPEUTIC EXERCISES , ADAPTIVE EQUIPMENT ASSESSMENT/ TRAINING, COGNITIVE RE-TRAINING, UPPER EXTREMITY SPLINTING REQUIRED Therapist: CYNTHIA LEONE/Ashli Signature on file
--- NOTE | 2017-02-28 13:42 | PD.CONS ---
Consult Service Palliative Care Consult Requested By Dr. Franky MD. Primary Care Physician Minor Saleh MD Reason for Consultation a. To assist with evaluation and management of symptoms including: Debility and shortness of breath. b. To assist medical decision maker(s) with: better understanding of current medical conditions; weighing benefits/burdens of medical treatment options; making medical treatment decisions. . HPI History of Present Illness Mr. Cole is an 87-year-old male with a medical history of atrial fibrillation , prior strokes 2, TIA, hypertension and prostate cancer status post chemotherapy and radiation in 2013. Patient with a history of CVA on 02/20/2017 , MRI of the brain showing areas of subacute infarct involving the left posterior cerebral artery including the medial left temporal lobe and the left occipital lobe. There was also an area of infarction involving the left thalamus and the right inferior cerebellar hemisphere. Carotid ultrasound showed less than 50% stenosis in the internal carotid arteries bilaterally. Patient required acute hospitalization and was discharge to [facility] for rehabilitation on 02/17/17. Patient returned from rehabilitation facility on secondary to altered mental status. On arrival, he was noted to be a GCS 3. Patient was intubated and admitted to medical intensive care for further management. ED workup to include WBC 26.3, Hgb 14.3, platelet count 246. Sodium on arrival 158, potassium 5.1, BUN/creatinine 127/5.30. PHOSPHATE 144, ammonia 36, troponin 0.10, albumin 2.7. Today sodium 162. Head CT 02/27/17 showing interval decrease in the previously noted edema involving the left posterior cerebral artery stroke. No acute hemorrhage or mass noted. Chest x-ray showing no acute process. Sputum and urine culture for 02/27/17 Positive for gram-negative rods. Patient seen in ICU, he is intubated on mechanical ventilation. Not sedated. Not opening eyes to voice or tactile stimuli. Nonpurposeful movement noted to bilateral upper extremities. Patient appears comfortable, no signs of discomfort noted. Patient afebrile, I pertaining sit with SBP in the 170s 180s. Currently on 35% FiO2. Met with patient's Humaira and daughter Justina. Reviewed events leading to these hospitalization, clinical course and current treatment plan. tells me that prior to January 2017, patient was residing at home with her. Using walker to ambulate short distances, requiring assistance with ADLs. Patient was diagnosed with dementia 6 months ago, periods of confusion, forgetfulness. Patient sustained a fall in January 2017, EMS was called. Patient was transferred to [facility] where he stayed for 2 weeks. Patient was then discharged to [facility] for rehabilitation. While at rehabilitation, patient was noted with altered mental status and was transferred to this facility on 02/27/17. Share concerns regarding patient's ability to medically extubate secondary to mental status, not following commands. Likely not able to protect his airway. Reviewed CPR, tracheostomy and PEG in the setting of patient's multiple comorbidities, advanced age and current clinical condition. Family electing for alternate code, intubation only at this time. Family verbalized that they wouldn't not agree with tracheostomy and PEG tube. Family will likely transition patient to comfort- directed care in the event that he is unable to extubate. Goal of care at this time is to allow time for clinical improvement. . Function/Cognitive Trajectory Patient with a reported recurrent falls and deconditioning. Recent hospitalizations this year and CVA in February 10, 2017 with residual. [facility] prior to these acute hospitalization. . Review of Systems ROS Limitations: Clinical Condition, Intubated Constitutional: COMPLAINS OF: Fatigue Endocrine: DENIES: Heat/cold intolerance Eyes: DENIES: Vision loss Ears, nose, mouth, throat: DENIES: Hearing loss Respiratory: DENIES: Cough, Hemoptysis Cardiovascular: DENIES: Chest pain, Lower Extremity Edema Gastrointestinal: DENIES: Abdominal pain, Constipation, Diarrhea, Nausea, Vomiting Genitourinary: DENIES: Urinary frequency Musculoskeletal: COMPLAINS OF: Muscle aches Integumentary: DENIES: Abnormal pigmentation Hematologic/Lymphatics: COMPLAINS OF: Bruising Immunologic/Allergic: DENIES: Eczema Neurologic: COMPLAINS OF: Abnormal gait, Poor Balance Psychiatric: DENIES: Anxiety Other ROS: Limited ROS secondary to patient's clinical condition, minimally responsive. Sedated and intubated. ROS obtained from medical history, clinical observation and family. Past Family Social History Coded Allergies: Iodine (Verified Allergy, Severe, Anaphylaxis, 02/10/17) Past Medical History CVA in February 2017 Dementia History of CVA 2 TIA Atrial fibrillation Hypertension Prostate cancer status post chemotherapy and radiation in 2013 Hyperlipidemia . Past Surgical History Right eye cataract extraction Vein stripping bilaterally . Reported Medications Trazodone (Trazodone HCl) 50 Mg Tab 50 Mg PO HS Valsartan 160 Mg Tab 160 Mg PO DAILY Probiotic (Lactobacillus Acidophilus) 1 Cap Cap 1 Cap PO DAILY Pravastatin 20 Mg Tab 20 Mg PO HS Gabapentin 300 Mg Cap 300 Mg PO DAILY Donepezil 5 Mg Tab 5 Mg PO HS Depakote DR (Divalproex Sodium) 250 Mg Tabdr 250 Mg PO HS Vitamin D3 (Cholecalciferol) 2,000 Unit Tab 2,000 Units PO DAILY Aspirin 325 Mg Tab 325 Mg PO DAILY . Current Medications Medications (Trade) Dose Ordered Sig/Lyric Route Start Time Stop Time Status Last Admin (NS Flush) 2 ml UNSCH PRN IV FLUSH 02/27/17 18:00 (NS Flush) 2 ml BID IV FLUSH 02/27/17 21:00 02/28/17 08:41 (Tylenol) 650 mg Q6H PRN PO 02/27/17 18:00 (Pepcid Inj) 20 mg Q12HR IV PUSH 02/27/17 21:00 02/28/17 08:40 (Tears Naturale Opth Soln) 1 drop TID EACH EYE 02/27/17 18:00 (Zofran Inj) 4 mg Q6H PRN IV 02/27/17 21:00 (Colace Liq) 100 mg Q12HR G-TUBE 02/27/17 21:00 (Dulcolax Supp) 10 mg DAILY PRN RECTAL 02/27/17 21:00 (Senna Liq) 17.6 mg Q12HR PRN G-TUBE 02/27/17 21:00 Miscellaneous Information 1 Q361D XX 02/27/17 18:00 (Chlorhexidine 2% Cloth) 3 pack Taper DAILY@04 TOP 02/28/17 04:00 02/24/18 03:59 02/28/17 01:08 Chlorhexidine Gluconate 3 pack 3 pack UNSCH PRN TOP 02/27/17 18:00 (fentaNYL DRIP) 250 ml @ 0 mls/hr TITRATE IV 02/27/17 18:00 Chlorhexidine Gluconate 15 ml 15 ml BID@08,20 MT 02/27/17 20:00 02/28/17 08:39 Pharmacy Profile Note 0 ml @ 0 mls/hr UNSCH XX 02/27/17 18:00 (Maxipime Inj/NS Inj) 100 ml @ 200 mls/hr Q24H IV 02/27/17 21:00 02/27/17 21:21 Miscellaneous Information SPECIFIC LAB TO BE DRAWN:GENTAMICIN TROUGH DATE TO... ONCE ONCE .XX 03/01/17 09:45 03/01/17 09:46 (D5W 1000 ml Inj) 1,000 ml @ 100 mls/hr Q10H IV 02/28/17 10:00 02/28/17 10:27 (Free Water) 250 ml Q6HR G-TUBE 02/28/17 12:00 02/28/17 10:27 (D50w (Vial) Inj) 25 ml UNSCH PRN IV PUSH 02/28/17 09:15 (Glucagon Inj) 1 mg UNSCH PRN OTHER 02/28/17 09:15 (NovoLIN R SUPPLEMENTAL SCALE) 1 Q6H SQ 02/28/17 10:00 Family History Patient's mother of pneumonia at a young age. No family history of cancer or CVA. . Substance Use Tobacco: No history Alcohol: Drinks 1 glass of wine daily. Prescription med abuse: No history Illicits: No history. . Psychosocial History Patient is originally from [facility]. Has been in [place] since 3. for the past 56 years. Has 2 children, Justina and Toy Diaz who lives in [place]. 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 No service. . Spiritual/Cultural Factors Yarsanism britany. . Living Will: Never completed Health Care Surrogate: Never completed Durable Power of Furniture Mover: Completed, but not made available Health Care Surrogate(s): Healthcare proxy is in patient's Humaira. Documented care wishes: No living will completed. Today's verbally stated goals: Patient unable to participate in goals of care conversation secondary to clinical condition. . Family/friends goals: Alternate code, intubation only. Goal is to allow time for clinical improvement. Likely transition patient to comfort-directed care if unable to extubate or clinical condition worsened. Ethical and Legal Issues No ethical legal issues have been identified. . Physical Exam Vital Signs Date Time Temp Pulse Resp B/P Pulse Ox O2 Delivery O2 Flow Rate FiO2 02/28/17 12:00 80 02/28/17 12:00 98.9 80 18 181/75 100 02/28/17 10:18 100 35 02/28/17 10:16 100 35 02/28/17 10:13 35 02/28/17 10:00 90 02/28/17 08:06 100 35 02/28/17 08:00 98.9 90 18 136/63 100 02/28/17 08:00 90 02/28/17 06:00 90 02/28/17 05:27 100 35 02/28/17 04:32 100 50 02/28/17 04:00 98.7 102 18 170/75 99 02/28/17 04:00 93 02/28/17 02:00 92 02/28/17 01:41 96 02/28/17 00:43 100 100 02/28/17 00:27 100 50 02/28/17 00:27 98.3 103 18 128/63 100 02/27/17 23:29 96.6 88 18 111/59 99 Ventilator 50 02/27/17 22:17 96.8 90 18 122/63 99 Ventilator 50 02/27/17 21:11 96.7 88 18 148/87 100 Ventilator 50 02/27/17 20:39 96.8 91 98/58 100 Ventilator 02/27/17 20:39 99 50 02/27/17 19:38 88 16 108/61 97 Auto-Vent 02/27/17 18:20 97 50 02/27/17 18:05 50 02/27/17 18:04 78 14 100/59 99 Ventilator 02/27/17 16:54 74 14 155/69 99 02/27/17 16:30 74 14 Ventilator 100 02/27/17 16:18 96 100 02/27/17 16:06 96.8 86 14 90/53 Ventilator 100 02/27/17 16:00 96 100 02/27/17 15:27 98.7 82 14 116/56 98 02/27/17 02/28/17 19:00 07:00 Intake Total 707 ml Output Total 1000 ml Balance -293 ml Intake Oral 0 ml IV Total 707 ml Output Urine Total 1000 ml # Bowel Movements 1 Exam CONSTITUTIONAL/GENERAL: This is an adequately nourished patient, in no apparent distress. Intubated on mechanical ventilation. Not sedated. TUBES/LINES/DRAINS: PIV's, ETT, OG, Presley catheter, bilateral soft wrist restraints. SKIN: No jaundice, rashes, or lesions. Ecchymoses on upper and lower extremities. No wounds seen anteriorly. Skin temperature appropriate. Not diaphoretic. HEAD: Atraumatic. Normocephalic. EYES: Pupils equal and round and reactive. No scleral icterus. ENT: Unable to evaluate hearing. Nose without bleeding or purulent drainage. Moist oral mucosa. NECK: Trachea midline. Supple. CARDIOVASCULAR: Regular rate and rhythm. Peripheral pulses symmetric. No edema. RESPIRATORY/CHEST: Symmetric, unlabored respirations. Clear to auscultation. Intubated on mechanical ventilation. GASTROINTESTINAL: Abdomen soft, nondistended. Bowel sounds present. GENITOURINARY: Without palpable bladder distension. Presley catheter in place. MUSCULOSKELETAL: Extremities without edema. NEUROLOGICAL: Not sedated. Minimally responsive to tactile or verbal stimuli. Nonpurposeful movement noted to bilateral upper extremities. PSYCHIATRIC: Unable to evaluate secondary to clinical condition. . Diagnostic Tests Laboratory Laboratory Tests Test 02/27/17 02/27/17 02/27/17 02/27/17 15:40 16:05 17:30 19:00 Prothrombin Time 11.6 SEC (9.8-11.6) Prothromb Time International 1.0 RATIO Ratio Activated Partial 26.1 SEC Thromboplast Time (24.3-30.1) Sodium Level 158 MEQ/L (136-145) Potassium Level 5.1 MEQ/L (3.5-5.1) Chloride Level 123 MEQ/L (98-107) Carbon Dioxide Level 23.1 MEQ/L (21.0-32.0) Anion Gap 12 MEQ/L (5-15) Blood Urea Nitrogen 127 MG/DL (7-18) Creatinine 5.30 MG/DL (0.60-1.30) Estimat Glomerular Filtration 10 ML/MIN (>89) Rate Random Glucose 112 MG/DL (74-106) Lactic Acid Level 2.8 mmol/L 2.2 mmol/L (0.4-2.0) (0.4-2.0) Calcium Level 8.6 MG/DL (8.5-10.1) Total Bilirubin 0.8 MG/DL (0.2-1.0) Aspartate Amino Transf 78 U/L (15-37) (AST/SGOT) Alanine Aminotransferase 55 U/L (12-78) (ALT/SGPT) Alkaline Phosphatase 144 U/L (45-117) Ammonia 36 MCMOL/L (11-32) Total Creatine Kinase 1077 U/L (39-308) Creatine Kinase MB 4.8 NG/ML (0.5-3.6) Creatine Kinase MB % 0.4 % (0.0-4.0) Troponin I 0.10 NG/ML (0.02-0.05) Total Protein 7.2 GM/DL (6.4-8.2) Albumin 2.7 GM/DL (3.4-5.0) Valproic Acid (Depakene) Level 18 MCG/ML (50-100) Ethyl Alcohol Level LESS THAN 3 MG/DL (0-5) White Blood Count 26.3 TH/MM3 (4.0-11.0) Red Blood Count 4.90 MIL/MM3 (4.50-5.90) Hemoglobin 14.3 GM/DL (13.0-17.0) Hematocrit 44.8 % (39.0-51.0) Mean Corpuscular Volume 91.3 FL (80.0-100.0) Mean Corpuscular Hemoglobin 29.1 PG (27.0-34.0) Mean Corpuscular Hemoglobin 31.9 % Concent (32.0-36.0) Red Cell Distribution Width 14.9 % (11.6-17.2) Platelet Count 246 TH/MM3 (150-450) Mean Platelet Volume 9.3 FL (7.0-11.0) Neutrophils (%) (Auto) 89.6 % (16.0-70.0) Lymphocytes (%) (Auto) 6.1 % (9.0-44.0) Monocytes (%) (Auto) 4.0 % (0.0-8.0) Eosinophils (%) (Auto) 0.0 % (0.0-4.0) Basophils (%) (Auto) 0.3 % (0.0-2.0) Neutrophils # (Auto) 23.6 TH/MM3 (1.8-7.7) Lymphocytes # (Auto) 1.6 TH/MM3 (1.0-4.8) Monocytes # (Auto) 1.1 TH/MM3 (0-0.9) Eosinophils # (Auto) 0.0 TH/MM3 (0-0.4) Basophils # (Auto) 0.1 TH/MM3 (0-0.2) CBC Comment AUTO DIFF Differential Comment AUTO DIFF CONFIRMED Platelet Estimate NORMAL (NORMAL) Platelet Morphology Comment NORMAL (NORMAL) Urine Opiates Screen NEG (NEG) Urine Barbiturates Screen NEG (NEG) Urine Amphetamines Screen NEG (NEG) Urine Benzodiazepines Screen NEG (NEG) Urine Cocaine Screen NEG (NEG) Urine Cannabinoids Screen NEG (NEG) Urine Color YELLOW (YELLW/STRAW) Urine Turbidity CLOUDY (CLEAR) Urine pH 7.0 (5.0-8.5) Urine Specific Coila 1.020 (1.002-1.035) Urine Protein 100 mg/dL (NEG-TRACE) Urine Glucose (UA) NEG mg/dL (NEG) Urine Ketones NEG mg/dL (NEG) Urine Occult Blood MOD (NEG) Urine Nitrite NEG (NEG) Urine Bilirubin NEG (NEG) Urine Urobilinogen 2.0 MG/DL (LESS THAN 2.0) Urine Leukocyte Esterase LARGE (NEG) Urine RBC 23 /hpf (0-3) Urine WBC /hpf (0-5) Urine WBC Clumps MOD (NONE) Urine Bacteria MANY /hpf (NONE) Urine Mucus MANY /lpf (OCC) Microscopic Urinalysis Comment CATH-CULTURE IND Blood Gas Puncture Site RT BRACHIAL Blood Gas Patient Temperature 98.6 Blood Gas HCO3 19 mmol/L (22-26) Blood Gas Base Excess -6.4 mmol/L (-2-2) Blood Gas Oxygen Saturation 98 % (90-100) Arterial Blood pH 7.31 (7.380-7.420) Arterial Blood Partial 38 mmHg (38-42) Pressure CO2 Arterial Blood Partial 383 mmHG Pressure O2 (61-120) Arterial Blood Oxygen Content 17.4 Vol % (12.0-20.0) Arterial Blood 0.6 % (0-4) Carboxyhemoglobin Arterial Blood Methemoglobin 0.8 % (0-2) Blood Gas Hemoglobin 11.9 G/DL (12.0-16.0) Oxygen Delivery Device VENTILATOR Blood Gas Ventilator Setting Blood Gas Inspired Oxygen 100 % Test 02/27/17 02/27/17 02/28/17 02/28/17 19:28 22:38 00:30 05:03 Blood Gas Puncture Site LT RADIAL Blood Gas Patient Temperature 98.6 Blood Gas HCO3 19 mmol/L (22-26) Blood Gas Base Excess -4.9 mmol/L (-2-2) Blood Gas Oxygen Saturation 97 % (90-100) Arterial Blood pH 7.40 (7.380-7.420) Arterial Blood Partial 32 mmHg (38-42) Pressure CO2 Arterial Blood Partial 116 mmHG Pressure O2 (61-120) Arterial Blood Oxygen Content 18.0 Vol % (12.0-20.0) Arterial Blood 0.6 % (0-4) Carboxyhemoglobin Arterial Blood Methemoglobin 0.7 % (0-2) Blood Gas Hemoglobin 13.1 G/DL (12.0-16.0) Oxygen Delivery Device VENTILATOR Blood Gas Ventilator Setting 18/500/5PEEP Blood Gas Inspired Oxygen 50 % Lactic Acid Level 1.4 mmol/L 2.0 mmol/L (0.4-2.0) (0.4-2.0) Nasal Screen MRSA (PCR) MRSA NOT DETECTED (NOT DETECT) White Blood Count 21.1 TH/MM3 (4.0-11.0) Red Blood Count 4.69 MIL/MM3 (4.50-5.90) Hemoglobin 13.7 GM/DL (13.0-17.0) Hematocrit 42.9 % (39.0-51.0) Mean Corpuscular Volume 91.6 FL (80.0-100.0) Mean Corpuscular Hemoglobin 29.2 PG (27.0-34.0) Mean Corpuscular Hemoglobin 31.9 % Concent (32.0-36.0) Red Cell Distribution Width 15.2 % (11.6-17.2) Platelet Count 169 TH/MM3 (150-450) Mean Platelet Volume 9.1 FL (7.0-11.0) Neutrophils (%) (Auto) 90.6 % (16.0-70.0) Lymphocytes (%) (Auto) 5.3 % (9.0-44.0) Monocytes (%) (Auto) 3.9 % (0.0-8.0) Eosinophils (%) (Auto) 0.0 % (0.0-4.0) Basophils (%) (Auto) 0.2 % (0.0-2.0) Neutrophils # (Auto) 19.1 TH/MM3 (1.8-7.7) Lymphocytes # (Auto) 1.1 TH/MM3 (1.0-4.8) Monocytes # (Auto) 0.8 TH/MM3 (0-0.9) Eosinophils # (Auto) 0.0 TH/MM3 (0-0.4) Basophils # (Auto) 0.0 TH/MM3 (0-0.2) CBC Comment DIFF FINAL Differential Comment Sodium Level 162 MEQ/L (136-145) Potassium Level 3.6 MEQ/L (3.5-5.1) Chloride Level 132 MEQ/L (98-107) Carbon Dioxide Level 20.1 MEQ/L (21.0-32.0) Anion Gap 10 MEQ/L (5-15) Blood Urea Nitrogen 95 MG/DL (7-18) Creatinine 2.80 MG/DL (0.60-1.30) Estimat Glomerular Filtration 21 ML/MIN (>89) Rate Random Glucose 107 MG/DL (74-106) Calcium Level 7.8 MG/DL (8.5-10.1) Phosphorus Level 3.6 MG/DL (2.5-4.9) Magnesium Level 2.9 MG/DL (1.5-2.5) Total Bilirubin 0.7 MG/DL (0.2-1.0) Aspartate Amino Transf 63 U/L (15-37) (AST/SGOT) Alanine Aminotransferase 45 U/L (12-78) (ALT/SGPT) Alkaline Phosphatase 134 U/L (45-117) Total Protein 6.4 GM/DL (6.4-8.2) Albumin 2.3 GM/DL (3.4-5.0) Random Gentamicin Level 7.7 MCG/ML Test 02/28/17 05:15 Blood Gas Puncture Site RT BRACHIAL Blood Gas Patient Temperature 98.6 Blood Gas HCO3 18 mmol/L (22-26) Blood Gas Base Excess -6.7 mmol/L (-2-2) Blood Gas Oxygen Saturation 97 % (90-100) Arterial Blood pH 7.36 (7.380-7.420) Arterial Blood Partial 32 mmHg (38-42) Pressure CO2 Arterial Blood Partial 206 mmHg Pressure O2 (61-120) Arterial Blood Oxygen Content 18.5 Vol % (12.0-20.0) Arterial Blood 1.0 % (0-4) Carboxyhemoglobin Arterial Blood Methemoglobin 1.3 % (0-2) Blood Gas Hemoglobin 13.3 G/DL (12.0-16.0) Oxygen Delivery Device VENTILATOR Blood Gas Ventilator Setting Blood Gas Inspired Oxygen 50 % Result Diagram: 02/28/17 0503 02/28/17 0503 Microbiology Microbiology Date/Time Procedure Status Source Growth 02/27/17 15:40 Aerobic Blood Culture - Preliminary Resulted Blood Peripheral NO GROWTH IN 1 DAY 02/27/17 15:40 Anaerobic Blood Culture - Preliminary Resulted Blood Peripheral NO GROWTH IN 1 DAY 02/27/17 15:45 Aerobic Blood Culture - Preliminary Resulted Blood Peripheral NO GROWTH IN 1 DAY 02/27/17 15:45 Anaerobic Blood Culture - Preliminary Resulted Blood Peripheral NO GROWTH IN 1 DAY 02/27/17 16:05 Urine Culture - Preliminary Resulted Urine Catheterized Urine Gram Negative Felipe 02/27/17 16:55 Gram Stain - Final Resulted Sputum Endotracheal 02/27/17 16:55 Sputum Culture - Preliminary Resulted Gram Negative Felipe Imaging Last Impressions Chest X-Ray 02/28/17 0600 Signed Impressions: Service Date/Time: Tuesday, February 28, 2017 05:39 - CONCLUSION: No acute pulmonary infiltrates. No significant change. Csome Wolf MD Head CT 02/27/17 1527 Signed Impressions: Service Date/Time: Monday, February 27, 2017 15:54 - CONCLUSION: 1. Interval decrease in the previously noted edema involving the left posterior cerebral artery stroke. There is only mild residual. 2. No acute hemorrhage or mass effect. 3. The ventricular system remains stable with dilatation of the lateral and third ventricles. Kamaljit Hurley MD Procedures -02/27/17 -intubation. Patient/Family Conference Present at Family Conference: Humaira. Family Conference Time (mins): 45 (minutes) Family Conference Location: Bedside Issues Discussed: * Palliative care role, purpose, approach * Additional medical, psychosocial, and spiritual history * Patients general health, functional status, and cognitive changes in the months leading up to the current hospitalization * Family's understanding of the current medical problems * Family's understanding of prognosis * Patients goals of care as best understood from advance directives and/or conversations and/or values * Current medical treatment options and benefits/burdens of those options * Likely scenarios comparing ongoing aggressive care with a transition to comfort measures only * Questions answered to the best of my ability * Palliative care contact information provided * Hospice benefits and philosophy . Assessment and Plan Disease Oriented Problem List: (1) Acute respiratory failure (2) CVA (cerebral vascular accident) (3) A-fib (4) Acute renal failure Symptom Scale: (1) Shortness of breath 0-10 Scale: Unable to quantify Comment: Remains intubated on mechanical ventilation. (2) Debility 0-10 Scale: Unable to quantify Comment: Progressive secondary to physical deconditioning and CVA. Pertinent Non-Medical Issues Psychosocial: Spiritual: Yarsanism britany. Legal: Ethical issues impacting care: No ethical issues have been identified. . Important Contacts Humaira Cole . . Prognosis Mr. Cole is an 87-year-old male with a medical history of atrial fibrillation , prior strokes 2, TIA, hypertension and prostate cancer status post chemotherapy and radiation in 2013. Patient with a history of physical deconditioning, falls and CVA on 02/20/2017. Patient a very high risk of further complications, progressive decline and . Patient's overall prognosis is poor for an improved quality of life given his age, multiple comorbidities, physical deconditioning and CVA residual. . Code Status: Alternative Code Plan * CODE STATUS: Patient full code at time of admission. Family electing alternate code/intubation only at this time. * MEDICAL DECISION-MAKING: Patient incapacitated at this time secondary to clinical condition. Healthcare proxy is his Humaira Cole. * GOALS OF CARE: Goal is to allow time for clinical improvement. Met with patient's Humaira and daughter Justina. Family likely transition patient to comfort-directed care if patient is unable to extubate or clinical condition worsened. * Discussed the future role of hospice services should patient's condition does not improve or continues to worsen. Family receptive to this. * SYMPTOMS: == Dyspnea: Currently intubated on mechanical ventilation. == Debility: Progressive secondary to physical deconditioning and CVA. Patient at rehabilitation facility for physical strengthening prior to these hospitalization. * Palliative care contact information has been provided to patient's family. * Palliative care will continue to follow-up with this patient and family throughout this hospitalization as the clinical course evolves. . Time Spent Total Floor Time (mins): 82 (Total time to include review and summarization of available medical records to include prior hospitalizations, physical exam, goals of care conversation with family, case discussion with bedside RN.) >50% Counseling/Coord of Care: Yes Thank you for the opportunity to participate in the care of Mr. Cole. Attestation To help prompt me to consider important information that might be impacting today's encounter and assessment, information from prior notes written by myself or my colleagues may have been "brought forward" into today's note. My signature on this note, however, is an attestation that I personally performed the exam, history, and/or decision-making noted today, and, unless otherwise indicated, the interactions with patient, family, and staff as well as the review of records all occurred today. I also attest that the listed assessment and stated plan reflect my best clinical judgment today based on the combination of historical information, prior notes, and today's exam/ interactions. When time spent is documented, it refers only to time spent today by the signer, or if indicated, combined time spent today by collaborating physician/nurse practitioner. Vee Gonzalez Feb 28, 2017 13:42
[2017-02-28] MEDS: METOPROLOL TARTRATE 25 MG TAB PO SCH ×2 (14:53→21:36)
[2017-02-28] MEDS: hydrALAZINE HCL 20 MG/ML VIAL IV PUSH PRN (15:17)
[2017-02-28 16:19] LABS: POTASSIUM 4.1 MEQ/L (3.5-5.1)
[2017-02-28] MEDS: CEFEPIME 1000 MG/NS 100 ML IV SCH ×2 (21:36)
[2017-03-01] VITALS (18 sets, daily range): BP systolic 113–201; BP diastolic 61–82; PULSE 70–102; RESP 15–22; TEMP 97.9–99.3; O2SAT 95–100
[2017-03-01] MEDS: RESP: ALBUTEROL 2.5 MG/IPRATROPIUM 0.5 MG NEB (SCH) INH ×4 (02:48→20:29)
[2017-03-01] MEDS: CHLORHEXIDINE GLUCONATE 2 % 1 PACK (2 CLOTHS) TOP SCH (04:00)
[2017-03-01] MEDS: INSULIN NovoLIN REGULAR SUPPLEMENTAL SCALE SQ SCH ×4 (04:00→21:22)
[2017-03-01 06:08] LABS: AUTOMATED NEUTROPHIL # 15.4 TH/MM3 (1.8-7.7); BASOPHIL % 0.2 % (0.0-2.0); EOSINOPHIL % 0.1 % (0.0-4.0); HEMATOCRIT 39.4 % (39.0-51.0); HEMO FLAGS DIFF FINAL; LYMPH % 6.8 % (9.0-44.0); LYMPHOCYTE # 1.2 TH/MM3 (1.0-4.8); MEAN CELL VOLUME 90.5 FL (80.0-100.0); MEAN CORPUSCULAR HEMOGLOBIN 29.1 PG (27.0-34.0); MEAN CORPUSCULAR HGB CONC 32.2 % (32.0-36.0); MONO % 6.2 % (0.0-8.0); NEUT % 86.7 % (16.0-70.0); PLATELET COUNT 155 TH/MM3 (150-450); RED BLOOD COUNT 4.36 MIL/MM3 (4.50-5.90); RED CELL DISTRIBUTION WIDTH 14.9 % (11.6-17.2); WHITE BLOOD COUNT 17.7 TH/MM3 (4.0-11.0)
[2017-03-01 06:36] LABS: ALKALINE PHOSPHATASE 152 U/L (45-117); ALT (GPT) 46 U/L (12-78); ANION GAP 8 MEQ/L (5-15); AST (GOT) 63 U/L (15-37); BICARBONATE 21.7 MEQ/L (21.0-32.0); BLOOD UREA NITROGEN 59 MG/DL (7-18); CHLORIDE 127 MEQ/L (98-107); GLOMERULAR FILTRATION RATE 51 ML/MIN (>89); POTASSIUM 3.2 MEQ/L (3.5-5.1); TOTAL BILIRUBIN ADULT 0.5 MG/DL (0.2-1.0)
[2017-03-01 06:57] LABS: SODIUM (NA) 157 MEQ/L (136-145)
[2017-03-01] MEDS: CHLORHEXIDINE 0.12% (ORAL KIT) 15 ML CUP MT SCH ×2 (09:16→21:27)
[2017-03-01] MEDS: ARTIFICIAL TEARS OPTH SOLN 15 ML BTL EACH EYE SCH ×3 (09:17→17:47)
[2017-03-01] MEDS: FAMOTIDINE 20 MG/2 ML VIAL IV PUSH SCH ×2 (09:18→21:22)
[2017-03-01] MEDS: METOPROLOL TARTRATE 25 MG TAB PO SCH ×2 (09:18→21:22)
[2017-03-01] MEDS: SODIUM CHLORIDE 0.9% FLUSH 10 ML FLUSH IV FLUSH SCH ×2 (09:18→21:27)
[2017-03-01] MEDS: DOCUSATE SODIUM 100 MG/10 ML UDC G-TUBE SCH ×2 (09:18→21:21)
[2017-03-01] MEDS: DEXTROSE 5% IN WATE 1000ML INJ 1,000 ML IV SCH ×2 (09:19→16:23)
[2017-03-01] MEDS ORDERED: PHARMACY ORDERED LAB ONE (09:45)
[2017-03-01] MEDS ORDERED: SODIUM CHLORIDE 0.9% IV SCH (10:00)
[2017-03-01] MEDS ORDERED: GENTAMICIN IV SCH (10:00)
[2017-03-01] MEDS ORDERED: POTASSIUM PHOSPHATE MONOBASIC 500 MG TAB PO PRN (11:15)
[2017-03-01] MEDS ORDERED: POTASSIUM CHLORIDE 25 MEQ EFFERVESCENT TAB PO PRN (11:15)
[2017-03-01] MEDS ORDERED: MAGNESIUM SULFATE INJ 2 GM in SODIUM CHLORIDE 0.9% INJ 96 ML IV PRN (11:15)
[2017-03-01] MEDS ORDERED: MAGNESIUM OXIDE 400 MG TAB PO PRN (11:15)
[2017-03-01] MEDS ORDERED: POTASSIUM CHLOR 40 MEQ PREMIX 100 ML IV PRN ×2 (11:15)
[2017-03-01] MEDS ORDERED: SODIUM PHOSPHATE INJ 30 MMOL in SODIUM CHLOR 0.9% 250 ML INJ 240 ML IV PRN (11:15)
[2017-03-01] MEDS ORDERED: POTASSIUM CHLOR 20 MEQ PREMIX 100 ML IV PRN (11:15)
[2017-03-01] MEDS ORDERED: MAGNESIUM SULFATE INJ 4 GM in SODIUM CHLORIDE 0.9% INJ 92 ML IV PRN (11:15)
[2017-03-01] MEDS ORDERED: POTASSIUM PHOSPHATE MONOBASIC 500 MG TAB PO/TUBE PRN (11:15)
[2017-03-01] MEDS: FREE WATER G-TUBE SCH ×4 (11:35→23:09)
[2017-03-01] MEDS: hydrALAZINE HCL 20 MG/ML VIAL IV PUSH PRN (12:15)
[2017-03-01] MEDS: POTASSIUM CHLOR 20 MEQ PREMIX 100 ML IV PRN ×4 (13:24→17:48)
--- NOTE | 2017-03-01 14:56 | HHI.CCPN ---
Subjective Remarks/Hospital Course Patient is a 89-year-old male who presented to the ED for altered mental status from his nursing facility. Patient has history of A. fib, hyperlipidemia and was recently admitted at [facility] from 02/10 through 02/17 for CVA. Patient has been convalescing at his rehabilitation facility where he was reportedly last seen normal week ago and today was noted to be GCS 3 prompting them to call EMS. Reportedly the patient's O2 sat was in the 70's, and the patient intubated per EMS. Vital signs stable en route. No family present and history is otherwise limited. Critical care medicine's consult for management. 02/28 Patient remains intubated, on no sedation. 03/01: Remains encephalopathic off sedation, orally intubated on mechanical ventilation. Not awake enough for extubation. Objective Vital Signs Date Time Temp Pulse Resp B/P Pulse Ox O2 Delivery O2 Flow Rate FiO2 03/01/17 12:00 75 03/01/17 12:00 98.5 22 201/82 98 03/01/17 11:33 35 02/27/17 23:29 Ventilator Intake and Output 02/28/17 02/28/17 03/01/17 08:00 16:00 00:00 Intake Total 707 ml 1500 ml 928 ml Output Total 500 ml 650 ml 450 ml Balance 207 ml 850 ml 478 ml Result Diagram: 03/01/17 0531 03/01/17 0531 Other Results Microbiology Date/Time Procedure Status Source Growth 02/27/17 16:05 Urine Culture - Final Complete Urine Catheterized Urine Klebsiella Pneumoniae 02/27/17 16:55 Gram Stain - Final Complete Sputum Endotracheal 02/27/17 16:55 Sputum Culture - Final Complete Klebsiella Pneumoniae Imaging Last Impressions Chest X-Ray 02/28/17 0600 Signed Impressions: Service Date/Time: Tuesday, February 28, 2017 05:39 - CONCLUSION: No acute pulmonary infiltrates. No significant change. Cosme Wolf MD Head CT 02/27/17 1527 Signed Impressions: Service Date/Time: Monday, February 27, 2017 15:54 - CONCLUSION: 1. Interval decrease in the previously noted edema involving the left posterior cerebral artery stroke. There is only mild residual. 2. No acute hemorrhage or mass effect. 3. The ventricular system remains stable with dilatation of the lateral and third ventricles. Kamaljit Hurley MD Objective Remarks GENERAL: This is a critically ill-appearing male intubated SKIN: Warm and dry. HEAD: Atraumatic. Normocephalic. EYES: Pupils equal and round. No scleral icterus. No injection or drainage. ENT: No nasal bleeding or discharge. Mucous membranes pink and moist. NECK: Trachea midline. No JVD. CARDIOVASCULAR: Normal rate, regular rhythm. RESPIRATORY: No accessory muscle use. Clear to auscultation. Breath sounds equal bilaterally. GASTROINTESTINAL: Abdomen soft, non-tender, nondistended. No guarding. MUSCULOSKELETAL: Extremities without clubbing, cyanosis, or edema. No obvious deformities. NEUROLOGICAL: Intubated and sedated A/P Assessment and Plan Plan by systems: Neurologic: Metabolic encephalopathy possibly secondary to sepsis History of posterior-superior cerebral artery stroke Hypothermia Neurochecks per ICU protocol Fentanyl infusion if needed for sedation. Avoid sedatives. 02/27 CT brain decrease in the previously noted edema involving the left posterior cerebral artery stroke. No acute hemorrhage or mass effect. The ventricular system remains stable with dilatation of the lateral and third ventricles. Respiratory: Acute hypoxic respiratory failure Possible aspiration Continue with vent support keep sat >92% Bronchodilators every 6 hours scheduled, every 2 hours when necessary ICU vent bundle, SBT trials as melody CXT: No pulm infiltrates. Cardiovascular: Cerebrovascular disease Cardiovascular disease On Lopressor 25mg Q12. Monitor HR and BP keep MAP >65 mmHg, Hydralazine 10mg IV Q6PRN SBP>160. Renal: Hypernatremia Dehydration ARF- improving Monitor renal function, I/O;s, avoid nephrotoxins Renal function improving Continue IVF D5W@100m/hr, Place on Free H20 250ml Q6 monitor sodium level. FEN/GI: Pepcid twice a day GI prophylaxis. Start TF- Nepro with goal rate 40ml/hr Heme/ID: Septic shock Urosepsis Leukocytosis...trending down Continue with Cefepime. d/c Gentamicin. Patient was given Cefepime and Vanco in ED. Monitor for signs of infections ( fever, WBC) WBC trending down. CXR on arrival: Clear lungs. Follow up on cultures from 02/27 ( Blood, sputum, urine) Endocrine: Glucose monitoring per ICU protocol -- SSI Prophylaxis: GI Prophylaxis Pepcid DVT Prophylaxis -- SCDs, heparin SQ Lines: Peripheral IVs 2. Had a long discussion with patient's daughter and mother at bedside. They do not feel patient would want a tracheostomy or PEG tube. I explained that he is to encephalopathic to consider extubation safely. They are considering possible de-escalation of therapy with comfort measures only. Palliative care following to assist with deciding goals of therapy. CCT 30 mins Silvio Owusu MD Mar 01, 2017 14:56
[2017-03-01] MEDS: fentaNYL DRIP 250 ML IV SCH (15:03)
--- NOTE | 2017-03-01 15:24 | HHI.HCPN ---
Reason for visit a. To assist with evaluation and management of symptoms including: Debility and shortness of breath. b. To assist medical decision maker(s) with: better understanding of current medical conditions; weighing benefits/burdens of medical treatment options; making medical treatment decisions. . Subjective/Interval History Pt not following commands, encephalopathic, not on sedations. Some grimacing only. Family/friend interactions I spoke with daughter who came in from [place]. She is realistic, and see the challenges the patient faces. I told her the challenges he faces including continue aspiration risk. Spoke about his advace age and that functional recovery is poor. Arrange for a family meeting at 12:00 noon tomorrow with pt's spouse. Advance Directives Living Will: Never completed Health Care Surrogate: Never completed Durable Power of Plastic Molding Operator: Completed, but not made available Advance Directive Specifics Health Care Surrogate(s): Healthcare proxy is in patient's Humaira. Documented care wishes: No living will completed. Objective Vital Signs Date Time Temp Pulse Resp B/P Pulse Ox O2 Delivery O2 Flow Rate FiO2 03/01/17 14:55 97 35 03/01/17 14:00 100 03/01/17 12:00 75 03/01/17 12:00 98.5 75 22 201/82 98 03/01/17 11:33 100 35 03/01/17 10:00 73 03/01/17 08:26 100 35 03/01/17 08:00 98.9 83 15 164/72 100 03/01/17 08:00 83 03/01/17 06:00 82 03/01/17 04:04 100 35 03/01/17 04:00 82 03/01/17 04:00 97.9 82 20 158/69 96 03/01/17 02:00 89 03/01/17 00:00 99.3 81 18 142/66 98 03/01/17 00:00 89 02/28/17 23:54 100 35 02/28/17 22:00 103 02/28/17 20:15 100 35 02/28/17 20:00 99.9 102 23 136/67 98 02/28/17 20:00 103 02/28/17 18:00 89 02/28/17 16:16 99 35 02/28/17 16:00 98.5 82 33 123/56 100 02/28/17 16:00 82 Intake & Output 03/01/17 03/01/17 07:00 19:00 Intake Total 1812 ml 1720 ml Output Total 850 ml 450 ml Balance 962 ml 1270 ml IV Total 1523 ml 1720 ml Tube Feeding 289 ml Output Urine Total 850 ml 450 ml # Bowel Movements 1 2 Physical Exam CONSTITUTIONAL/GENERAL: This is an adequately nourished patient, in no apparent distress. Intubated on mechanical ventilation. Not sedated. TUBES/LINES/DRAINS: PIV's, ETT, OG, Presley catheter, bilateral soft wrist restraints. SKIN: No jaundice, rashes, or lesions. Ecchymoses on upper and lower extremities. No wounds seen anteriorly. Skin temperature appropriate. Not diaphoretic. HEAD: Atraumatic. Normocephalic. EYES: Pupils equal and round and reactive. No scleral icterus. ENT: Unable to evaluate hearing. Nose without bleeding or purulent drainage. Moist oral mucosa. NECK: Trachea midline. Supple. CARDIOVASCULAR: Regular rate and rhythm. Peripheral pulses symmetric. No edema. RESPIRATORY/CHEST: Symmetric, unlabored respirations. Clear to auscultation. Intubated on mechanical ventilation. GASTROINTESTINAL: Abdomen soft, nondistended. Bowel sounds present. GENITOURINARY: Without palpable bladder distension. Presley catheter in place. MUSCULOSKELETAL: Extremities without edema. NEUROLOGICAL: Not sedated. Minimally responsive to tactile or verbal stimuli. Nonpurposeful movement noted to bilateral upper extremities. PSYCHIATRIC: Unable to evaluate secondary to clinical condition. . Diagnostic Tests Laboratory Laboratory Tests Test 02/27/17 02/27/17 02/27/17 02/27/17 15:40 16:05 17:30 19:00 Prothrombin Time 11.6 SEC (9.8-11.6) Prothromb Time International 1.0 RATIO Ratio Activated Partial 26.1 SEC Thromboplast Time (24.3-30.1) Sodium Level 158 MEQ/L (136-145) Potassium Level 5.1 MEQ/L (3.5-5.1) Chloride Level 123 MEQ/L (98-107) Carbon Dioxide Level 23.1 MEQ/L (21.0-32.0) Anion Gap 12 MEQ/L (5-15) Blood Urea Nitrogen 127 MG/DL (7-18) Creatinine 5.30 MG/DL (0.60-1.30) Estimat Glomerular Filtration 10 ML/MIN (>89) Rate Random Glucose 112 MG/DL (74-106) Lactic Acid Level 2.8 mmol/L 2.2 mmol/L (0.4-2.0) (0.4-2.0) Calcium Level 8.6 MG/DL (8.5-10.1) Total Bilirubin 0.8 MG/DL (0.2-1.0) Aspartate Amino Transf 78 U/L (15-37) (AST/SGOT) Alanine Aminotransferase 55 U/L (12-78) (ALT/SGPT) Alkaline Phosphatase 144 U/L (45-117) Ammonia 36 MCMOL/L (11-32) Total Creatine Kinase 1077 U/L (39-308) Creatine Kinase MB 4.8 NG/ML (0.5-3.6) Creatine Kinase MB % 0.4 % (0.0-4.0) Troponin I 0.10 NG/ML (0.02-0.05) Total Protein 7.2 GM/DL (6.4-8.2) Albumin 2.7 GM/DL (3.4-5.0) Valproic Acid (Depakene) Level 18 MCG/ML (50-100) Ethyl Alcohol Level LESS THAN 3 MG/DL (0-5) White Blood Count 26.3 TH/MM3 (4.0-11.0) Red Blood Count 4.90 MIL/MM3 (4.50-5.90) Hemoglobin 14.3 GM/DL (13.0-17.0) Hematocrit 44.8 % (39.0-51.0) Mean Corpuscular Volume 91.3 FL (80.0-100.0) Mean Corpuscular Hemoglobin 29.1 PG (27.0-34.0) Mean Corpuscular Hemoglobin 31.9 % Concent (32.0-36.0) Red Cell Distribution Width 14.9 % (11.6-17.2) Platelet Count 246 TH/MM3 (150-450) Mean Platelet Volume 9.3 FL (7.0-11.0) Neutrophils (%) (Auto) 89.6 % (16.0-70.0) Lymphocytes (%) (Auto) 6.1 % (9.0-44.0) Monocytes (%) (Auto) 4.0 % (0.0-8.0) Eosinophils (%) (Auto) 0.0 % (0.0-4.0) Basophils (%) (Auto) 0.3 % (0.0-2.0) Neutrophils # (Auto) 23.6 TH/MM3 (1.8-7.7) Lymphocytes # (Auto) 1.6 TH/MM3 (1.0-4.8) Monocytes # (Auto) 1.1 TH/MM3 (0-0.9) Eosinophils # (Auto) 0.0 TH/MM3 (0-0.4) Basophils # (Auto) 0.1 TH/MM3 (0-0.2) CBC Comment AUTO DIFF Differential Comment AUTO DIFF CONFIRMED Platelet Estimate NORMAL (NORMAL) Platelet Morphology Comment NORMAL (NORMAL) Urine Opiates Screen NEG (NEG) Urine Barbiturates Screen NEG (NEG) Urine Amphetamines Screen NEG (NEG) Urine Benzodiazepines Screen NEG (NEG) Urine Cocaine Screen NEG (NEG) Urine Cannabinoids Screen NEG (NEG) Urine Color YELLOW (YELLW/STRAW) Urine Turbidity CLOUDY (CLEAR) Urine pH 7.0 (5.0-8.5) Urine Specific [place] 1.020 (1.002-1.035) Urine Protein 100 mg/dL (NEG-TRACE) Urine Glucose (UA) NEG mg/dL (NEG) Urine Ketones NEG mg/dL (NEG) Urine Occult Blood MOD (NEG) Urine Nitrite NEG (NEG) Urine Bilirubin NEG (NEG) Urine Urobilinogen 2.0 MG/DL (LESS THAN 2.0) Urine Leukocyte Esterase LARGE (NEG) Urine RBC 23 /hpf (0-3) Urine WBC /hpf (0-5) Urine WBC Clumps MOD (NONE) Urine Bacteria MANY /hpf (NONE) Urine Mucus MANY /lpf (OCC) Microscopic Urinalysis Comment CATH-CULTURE IND Blood Gas Puncture Site RT BRACHIAL Blood Gas Patient Temperature 98.6 Blood Gas HCO3 19 mmol/L (22-26) Blood Gas Base Excess -6.4 mmol/L (-2-2) Blood Gas Oxygen Saturation 98 % (90-100) Arterial Blood pH 7.31 (7.380-7.420) Arterial Blood Partial 38 mmHg (38-42) Pressure CO2 Arterial Blood Partial 383 mmHG Pressure O2 (61-120) Arterial Blood Oxygen Content 17.4 Vol % (12.0-20.0) Arterial Blood 0.6 % (0-4) Carboxyhemoglobin Arterial Blood Methemoglobin 0.8 % (0-2) Blood Gas Hemoglobin 11.9 G/DL (12.0-16.0) Oxygen Delivery Device VENTILATOR Blood Gas Ventilator Setting Blood Gas Inspired Oxygen 100 % Test 02/27/17 02/27/17 02/28/17 02/28/17 19:28 22:38 00:30 05:03 Blood Gas Puncture Site LT RADIAL Blood Gas Patient Temperature 98.6 Blood Gas HCO3 19 mmol/L (22-26) Blood Gas Base Excess -4.9 mmol/L (-2-2) Blood Gas Oxygen Saturation 97 % (90-100) Arterial Blood pH 7.40 (7.380-7.420) Arterial Blood Partial 32 mmHg (38-42) Pressure CO2 Arterial Blood Partial 116 mmHG Pressure O2 (61-120) Arterial Blood Oxygen Content 18.0 Vol % (12.0-20.0) Arterial Blood 0.6 % (0-4) Carboxyhemoglobin Arterial Blood Methemoglobin 0.7 % (0-2) Blood Gas Hemoglobin 13.1 G/DL (12.0-16.0) Oxygen Delivery Device VENTILATOR Blood Gas Ventilator Setting 18/500/5PEEP Blood Gas Inspired Oxygen 50 % Lactic Acid Level 1.4 mmol/L 2.0 mmol/L (0.4-2.0) (0.4-2.0) Nasal Screen MRSA (PCR) MRSA NOT DETECTED (NOT DETECT) White Blood Count 21.1 TH/MM3 (4.0-11.0) Red Blood Count 4.69 MIL/MM3 (4.50-5.90) Hemoglobin 13.7 GM/DL (13.0-17.0) Hematocrit 42.9 % (39.0-51.0) Mean Corpuscular Volume 91.6 FL (80.0-100.0) Mean Corpuscular Hemoglobin 29.2 PG (27.0-34.0) Mean Corpuscular Hemoglobin 31.9 % Concent (32.0-36.0) Red Cell Distribution Width 15.2 % (11.6-17.2) Platelet Count 169 TH/MM3 (150-450) Mean Platelet Volume 9.1 FL (7.0-11.0) Neutrophils (%) (Auto) 90.6 % (16.0-70.0) Lymphocytes (%) (Auto) 5.3 % (9.0-44.0) Monocytes (%) (Auto) 3.9 % (0.0-8.0) Eosinophils (%) (Auto) 0.0 % (0.0-4.0) Basophils (%) (Auto) 0.2 % (0.0-2.0) Neutrophils # (Auto) 19.1 TH/MM3 (1.8-7.7) Lymphocytes # (Auto) 1.1 TH/MM3 (1.0-4.8) Monocytes # (Auto) 0.8 TH/MM3 (0-0.9) Eosinophils # (Auto) 0.0 TH/MM3 (0-0.4) Basophils # (Auto) 0.0 TH/MM3 (0-0.2) CBC Comment DIFF FINAL Differential Comment Sodium Level 162 MEQ/L (136-145) Potassium Level 3.6 MEQ/L (3.5-5.1) Chloride Level 132 MEQ/L (98-107) Carbon Dioxide Level 20.1 MEQ/L (21.0-32.0) Anion Gap 10 MEQ/L (5-15) Blood Urea Nitrogen 95 MG/DL (7-18) Creatinine 2.80 MG/DL (0.60-1.30) Estimat Glomerular Filtration 21 ML/MIN (>89) Rate Random Glucose 107 MG/DL (74-106) Calcium Level 7.8 MG/DL (8.5-10.1) Phosphorus Level 3.6 MG/DL (2.5-4.9) Magnesium Level 2.9 MG/DL (1.5-2.5) Total Bilirubin 0.7 MG/DL (0.2-1.0) Aspartate Amino Transf 63 U/L (15-37) (AST/SGOT) Alanine Aminotransferase 45 U/L (12-78) (ALT/SGPT) Alkaline Phosphatase 134 U/L (45-117) Total Protein 6.4 GM/DL (6.4-8.2) Albumin 2.3 GM/DL (3.4-5.0) Random Gentamicin Level 7.7 MCG/ML Test 02/28/17 02/28/17 03/01/17 05:15 15:26 05:31 Blood Gas Puncture Site RT BRACHIAL Blood Gas Patient Temperature 98.6 Blood Gas HCO3 18 mmol/L (22-26) Blood Gas Base Excess -6.7 mmol/L (-2-2) Blood Gas Oxygen Saturation 97 % (90-100) Arterial Blood pH 7.36 (7.380-7.420) Arterial Blood Partial 32 mmHg (38-42) Pressure CO2 Arterial Blood Partial 206 mmHg Pressure O2 (61-120) Arterial Blood Oxygen Content 18.5 Vol % (12.0-20.0) Arterial Blood 1.0 % (0-4) Carboxyhemoglobin Arterial Blood Methemoglobin 1.3 % (0-2) Blood Gas Hemoglobin 13.3 G/DL (12.0-16.0) Oxygen Delivery Device VENTILATOR Blood Gas Ventilator Setting Blood Gas Inspired Oxygen 50 % Sodium Level 160 MEQ/L 157 MEQ/L (136-145) (136-145) Potassium Level 4.1 MEQ/L 3.2 MEQ/L (3.5-5.1) (3.5-5.1) Chloride Level 131 MEQ/L 127 MEQ/L (98-107) (98-107) Carbon Dioxide Level 19.0 MEQ/L 21.7 MEQ/L (21.0-32.0) (21.0-32.0) Anion Gap 10 MEQ/L (5-15) 8 MEQ/L (5-15) Blood Urea Nitrogen 72 MG/DL (7-18) 59 MG/DL (7-18) Creatinine 1.69 MG/DL 1.33 MG/DL (0.60-1.30) (0.60-1.30) Estimat Glomerular Filtration 38 ML/MIN (>89) 51 ML/MIN (>89) Rate Random Glucose 144 MG/DL 151 MG/DL (74-106) (74-106) Calcium Level 8.2 MG/DL 8.2 MG/DL (8.5-10.1) (8.5-10.1) White Blood Count 17.7 TH/MM3 (4.0-11.0) Red Blood Count 4.36 MIL/MM3 (4.50-5.90) Hemoglobin 12.7 GM/DL (13.0-17.0) Hematocrit 39.4 % (39.0-51.0) Mean Corpuscular Volume 90.5 FL (80.0-100.0) Mean Corpuscular Hemoglobin 29.1 PG (27.0-34.0) Mean Corpuscular Hemoglobin 32.2 % Concent (32.0-36.0) Red Cell Distribution Width 14.9 % (11.6-17.2) Platelet Count 155 TH/MM3 (150-450) Mean Platelet Volume 9.4 FL (7.0-11.0) Neutrophils (%) (Auto) 86.7 % (16.0-70.0) Lymphocytes (%) (Auto) 6.8 % (9.0-44.0) Monocytes (%) (Auto) 6.2 % (0.0-8.0) Eosinophils (%) (Auto) 0.1 % (0.0-4.0) Basophils (%) (Auto) 0.2 % (0.0-2.0) Neutrophils # (Auto) 15.4 TH/MM3 (1.8-7.7) Lymphocytes # (Auto) 1.2 TH/MM3 (1.0-4.8) Monocytes # (Auto) 1.1 TH/MM3 (0-0.9) Eosinophils # (Auto) 0.0 TH/MM3 (0-0.4) Basophils # (Auto) 0.0 TH/MM3 (0-0.2) CBC Comment DIFF FINAL Differential Comment Total Bilirubin 0.5 MG/DL (0.2-1.0) Aspartate Amino Transf 63 U/L (15-37) (AST/SGOT) Alanine Aminotransferase 46 U/L (12-78) (ALT/SGPT) Alkaline Phosphatase 152 U/L (45-117) Total Protein 6.2 GM/DL (6.4-8.2) Albumin 2.1 GM/DL (3.4-5.0) Result Diagram: 03/01/17 0531 03/01/17530 Microbiology Microbiology Date/Time Procedure Status Source Growth 02/27/17 15:40 Aerobic Blood Culture - Preliminary Resulted Blood Peripheral NO GROWTH IN 2 DAYS 02/27/17 15:40 Anaerobic Blood Culture - Preliminary Resulted Blood Peripheral NO GROWTH IN 2 DAYS 02/27/17 15:45 Aerobic Blood Culture - Preliminary Resulted Blood Peripheral NO GROWTH IN 2 DAYS 02/27/17 15:45 Anaerobic Blood Culture - Preliminary Resulted Blood Peripheral NO GROWTH IN 2 DAYS 02/27/17 16:05 Urine Culture - Final Complete Urine Catheterized Urine Klebsiella Pneumoniae 02/27/17 16:55 Gram Stain - Final Complete Sputum Endotracheal 02/27/17 16:55 Sputum Culture - Final Complete Klebsiella Pneumoniae Imaging Last Impressions Chest X-Ray 02/28/17 0600 Signed Impressions: Service Date/Time: Tuesday, February 28, 2017 05:39 - CONCLUSION: No acute pulmonary infiltrates. No significant change. Cosme Wolf MD Head CT 02/27/17 1527 Signed Impressions: Service Date/Time: Monday, February 27, 2017 15:54 - CONCLUSION: 1. Interval decrease in the previously noted edema involving the left posterior cerebral artery stroke. There is only mild residual. 2. No acute hemorrhage or mass effect. 3. The ventricular system remains stable with dilatation of the lateral and third ventricles. Kamaljit Hurley MD Procedures -02/27/17 -intubation. Assessment and Plan Disease Oriented Problem List: (1) Acute respiratory failure (2) CVA (cerebral vascular accident) (3) A-fib (4) Acute renal failure Symptom Scale: (1) Shortness of breath 0-10 Scale: Unable to quantify Comment: Remains intubated on mechanical ventilation. (2) Debility 0-10 Scale: Unable to quantify Comment: Progressive secondary to physical deconditioning and CVA. Pertinent Non-Medical Issues Psychosocial: Spiritual: [employer]. Legal: Ethical issues impacting care: No ethical issues have been identified. . Important Contacts Humaira Cole . . Prognosis Mr. Cole is an 87-year-old male with a medical history of atrial fibrillation , prior strokes 2, TIA, hypertension and prostate cancer status post chemotherapy and radiation in 2013. Patient with a history of physical deconditioning, falls and CVA on 02/20/2017. Patient a very high risk of further complications, progressive decline and . Patient overall prognosis is poor. . Code Status: Alternative Code Plan * CODE STATUS: Intubation only, no shock/compression/or acls drugs. * MEDICAL DECISION-MAKING: Patient incapacitated at this time secondary to clinical condition. Healthcare proxy is his Humaira Cole. * GOALS OF CARE: spoke with daughter who came in from [place]. She is realistic, and see the challenges the patient faces. I told her the challenges he faces including continue aspiration risk. Spoke about his advace age and that functional recovery is poor. Arrange for a family meeting at 12:00 noon tomorrow with pt's spouse. They want to get family here to see patient by Monday, and if decision is to transition to comfort, likely will not be earlier than that. * Discussed the future role of hospice services should patient's condition does not improve or continues to worsen. Family receptive to this. * SYMPTOMS: == Dyspnea: Currently intubated on mechanical ventilation. == Debility: Progressive secondary to physical deconditioning and CVA. Patient at rehabilitation facility for physical strengthening prior to these hospitalization. * Palliative care contact information has been provided to patient's family. * Palliative care will continue to follow-up with this patient and family throughout this hospitalization as the clinical course evolves. Meeting with pt 's spouse at 12:00 noon tomorrow. . Attestation To help prompt me to consider important information that might be impacting today's encounter and assessment, information from prior notes written by myself or my colleagues may have been "brought forward" into today's note. My signature on this note, however, is an attestation that I personally performed the exam, history, and/or decision-making noted today, and, unless otherwise indicated, the interactions with patient, family, and staff as well as the review of records all occurred today. I also attest that the listed assessment and stated plan reflect my best clinical judgment today based on the combination of historical information, prior notes, and today's exam/ interactions. When time spent is documented, it refers only to time spent today by the signer, or if indicated, combined time spent today by collaborating physician/nurse practitioner. Curry Leach MD Mar 01, 2017 15:24
[2017-03-01] MEDS: CEFEPIME 1000 MG/NS 100 ML IV SCH ×2 (21:22)
[2017-03-02] VITALS (17 sets, daily range): BP systolic 102–159; BP diastolic 58–70; PULSE 67–114; RESP 18–22; TEMP 97.6–99.1; O2SAT 91–100
[2017-03-02] MEDS: CHLORHEXIDINE GLUCONATE 2 % 1 PACK (2 CLOTHS) TOP SCH (04:00)
[2017-03-02] MEDS: INSULIN NovoLIN REGULAR SUPPLEMENTAL SCALE SQ SCH ×4 (04:00→21:21)
[2017-03-02] MEDS: RESP: ALBUTEROL 2.5 MG/IPRATROPIUM 0.5 MG NEB (SCH) INH ×4 (04:02→20:13)
[2017-03-02] MEDS: FREE WATER G-TUBE SCH ×3 (04:10→18:03)
[2017-03-02] MEDS: DEXTROSE 5% IN WATE 1000ML INJ 1,000 ML IV SCH ×3 (04:43→22:00)
[2017-03-02 08:16] LABS: BICARBONATE 23.8 MEQ/L (21.0-32.0); POTASSIUM 3.7 MEQ/L (3.5-5.1)
[2017-03-02] MEDS: FAMOTIDINE 20 MG/2 ML VIAL IV PUSH SCH ×2 (08:49→20:38)
[2017-03-02] MEDS: SODIUM CHLORIDE 0.9% FLUSH 10 ML FLUSH IV FLUSH SCH ×2 (08:49→20:42)
[2017-03-02] MEDS: DOCUSATE SODIUM 100 MG/10 ML UDC G-TUBE SCH ×2 (08:49→20:38)
[2017-03-02] MEDS: METOPROLOL TARTRATE 25 MG TAB PO SCH ×2 (08:49→20:38)
[2017-03-02] MEDS: ARTIFICIAL TEARS OPTH SOLN 15 ML BTL EACH EYE SCH ×3 (08:49→18:03)
[2017-03-02] MEDS: CHLORHEXIDINE 0.12% (ORAL KIT) 15 ML CUP MT SCH ×2 (08:50→20:37)
--- NOTE | 2017-03-02 11:15 | HHI.CCPN ---
Subjective Remarks/Hospital Course Patient is a 89-year-old male who presented to the ED for altered mental status from his nursing facility. Patient has history of A. fib, hyperlipidemia and was recently admitted at [facility] from 02/10 through 02/17 for CVA. Patient has been convalescing at his rehabilitation facility where he was reportedly last seen normal week ago and today was noted to be GCS 3 prompting them to call EMS. Reportedly the patient's O2 sat was in the 70's, and the patient intubated per EMS. Vital signs stable en route. No family present and history is otherwise limited. Critical care medicine's consult for management. 02/28 Patient remains intubated, on no sedation. 03/01: Remains encephalopathic off sedation, orally intubated on mechanical ventilation. Not awake enough for extubation. 03/02: Remains encephalopathic off sedation, orally intubated on mechanical ventilation. On low-dose fentanyl for comfort. Family is planning on possible transition to comfort measures tomorrow. Objective Vital Signs Date Time Temp Pulse Resp B/P Pulse Ox O2 Delivery O2 Flow Rate FiO2 03/02/17 10:00 69 03/02/17 08:07 100 35 03/02/17 08:00 97.6 18 145/64 02/27/17 23:29 Ventilator Intake and Output 03/01/17 03/01/17 03/02/17 08:00 16:00 00:00 Intake Total 884 ml 1720 ml 1287 ml Output Total 400 ml 450 ml 400 ml Balance 484 ml 1270 ml 887 ml Result Diagram: 03/01/17 0531 03/02/17 0735 Other Results Microbiology Date/Time Procedure Status Source Growth 02/27/17 16:05 Urine Culture - Final Complete Urine Catheterized Urine Klebsiella Pneumoniae 02/27/17 16:55 Gram Stain - Final Complete Sputum Endotracheal 02/27/17 16:55 Sputum Culture - Final Complete Klebsiella Pneumoniae Imaging Last Impressions Chest X-Ray 02/28/17 0600 Signed Impressions: Service Date/Time: Tuesday, February 28, 2017 05:39 - CONCLUSION: No acute pulmonary infiltrates. No significant change. Cosme Wolf MD Head CT 02/27/17 1527 Signed Impressions: Service Date/Time: Monday, February 27, 2017 15:54 - CONCLUSION: 1. Interval decrease in the previously noted edema involving the left posterior cerebral artery stroke. There is only mild residual. 2. No acute hemorrhage or mass effect. 3. The ventricular system remains stable with dilatation of the lateral and third ventricles. Kamaljit Hurley MD Objective Remarks GENERAL: This is a critically ill-appearing male intubated SKIN: Warm and dry. HEAD: Atraumatic. Normocephalic. EYES: Pupils equal and round. No scleral icterus. No injection or drainage. ENT: No nasal bleeding or discharge. Mucous membranes pink and moist. NECK: Trachea midline. No JVD. CARDIOVASCULAR: Normal rate, regular rhythm. RESPIRATORY: No accessory muscle use. Clear to auscultation. Breath sounds equal bilaterally. GASTROINTESTINAL: Abdomen soft, non-tender, nondistended. No guarding. MUSCULOSKELETAL: Extremities without clubbing, cyanosis, or edema. No obvious deformities. NEUROLOGICAL: Intubated and sedated A/P Assessment and Plan Plan by systems: Neurologic: Metabolic encephalopathy possibly secondary to sepsis History of posterior-superior cerebral artery stroke Hypothermia Neurochecks per ICU protocol Fentanyl infusion if needed for sedation. Avoid sedatives. 02/27 CT brain decrease in the previously noted edema involving the left posterior cerebral artery stroke. No acute hemorrhage or mass effect. The ventricular system remains stable with dilatation of the lateral and third ventricles. Respiratory: Acute hypoxic respiratory failure Possible aspiration Continue with vent support keep sat >92% Bronchodilators every 6 hours scheduled, every 2 hours when necessary ICU vent bundle, SBT trials as melody CXT: No pulm infiltrates. Cardiovascular: Cerebrovascular disease Cardiovascular disease On Lopressor 25mg Q12. Monitor HR and BP keep MAP >65 mmHg, Hydralazine 10mg IV Q6PRN SBP>160. Renal: Hypernatremia Dehydration ARF- improving Monitor renal function, I/O;s, avoid nephrotoxins Renal function improving Continue IVF D5W@100m/hr, Place on Free H20 250ml Q6 monitor sodium level. FEN/GI: Pepcid twice a day GI prophylaxis. Start TF- Nepro with goal rate 40ml/hr Heme/ID: Septic shock Urosepsis Leukocytosis...trending down Continue with Cefepime. d/c Gentamicin. Patient was given Cefepime and Vanco in ED. Monitor for signs of infections ( fever, WBC) WBC trending down. CXR on arrival: Clear lungs. Follow up on cultures from 02/27 ( Blood, sputum, urine) Endocrine: Glucose monitoring per ICU protocol -- SSI Prophylaxis: GI Prophylaxis Pepcid DVT Prophylaxis -- SCDs, heparin SQ Lines: Peripheral IVs 2. Dr. Owusu had a long discussion with patient's daughter and mother at bedside on 03/01. They do not feel patient would want a tracheostomy or PEG tube. I explained that he is too encephalopathic to consider extubation safely. They are considering possible de-escalation of therapy with comfort measures only. Palliative care following to assist with deciding goals of therapy. CCT 30 mins Silvio Owusu MD Mar 02, 2017 11:15
--- NOTE | 2017-03-02 13:03 | HHI.HCPN ---
Reason for visit a. To assist with evaluation and management of symptoms including: Debility and shortness of breath. b. To assist medical decision maker(s) with: better understanding of current medical conditions; weighing benefits/burdens of medical treatment options; making medical treatment decisions. . Subjective/Interval History Pt unresponsive on my visit, remains on the ventilator. Family/friend interactions Had family meeting with pt's daughter and pt's spouse. Family has made the decision to transition to comfort measures only, and with terminal extubation, likely Monday or Monday. Reviewed that exhibits would need to be signed. They are amenable to hospice consult to provide extra layer of support during the weekend. Advance Directives Living Will: Never completed Health Care Surrogate: Never completed Durable Power of Bumper Straightener: Completed, but not made available Advance Directive Specifics Health Care Surrogate(s): Healthcare proxy is in patient's Humaira. Documented care wishes: No living will completed. Objective Vital Signs Date Time Temp Pulse Resp B/P Pulse Ox O2 Delivery O2 Flow Rate FiO2 03/02/17 11:33 100 35 03/02/17 10:00 69 03/02/17 08:07 100 35 03/02/17 08:00 97.6 72 18 145/64 100 03/02/17 08:00 72 03/02/17 06:00 67 03/02/17 04:26 96 35 03/02/17 04:00 69 03/02/17 04:00 99.0 69 22 131/58 97 03/02/17 02:00 79 03/02/17 00:00 98.2 82 22 117/66 98 03/02/17 00:00 82 03/01/17 23:52 100 35 03/01/17 22:00 70 03/01/17 20:00 94 03/01/17 20:00 99.0 94 22 113/63 98 03/01/17 19:46 97 35 03/01/17 18:00 94 03/01/17 16:00 102 03/01/17 16:00 98.7 102 22 126/61 95 03/01/17 14:55 97 35 03/01/17 14:00 100 Intake & Output 03/02/17 03/02/17 07:00 19:00 Intake Total 2273 ml Output Total 800 ml Balance 1473 ml IV Total 1587 ml Tube Feeding 686 ml Output Urine Total 800 ml # Bowel Movements 1 Physical Exam CONSTITUTIONAL/GENERAL: This is an adequately nourished patient, in no apparent distress. Intubated on mechanical ventilation. TUBES/LINES/DRAINS: PIV's, ETT, OG, Presley catheter, bilateral soft wrist restraints. SKIN: No jaundice, rashes, or lesions. Ecchymoses on upper and lower extremities. No wounds seen anteriorly. Skin temperature appropriate. Not diaphoretic. HEAD: Atraumatic. Normocephalic. EYES: Pupils equal and round and reactive. No scleral icterus. ENT: Unable to evaluate hearing. Nose without bleeding or purulent drainage. Moist oral mucosa. NECK: Trachea midline. Supple. CARDIOVASCULAR: Regular rate and rhythm. Peripheral pulses symmetric. No edema. RESPIRATORY/CHEST: Symmetric, unlabored respirations. Clear to auscultation. Intubated on mechanical ventilation. GASTROINTESTINAL: Abdomen soft, nondistended. Bowel sounds present. GENITOURINARY: Without palpable bladder distension. Presley catheter in place. MUSCULOSKELETAL: Extremities without edema. NEUROLOGICAL: Not sedated. Minimally responsive to tactile or verbal stimuli. . PSYCHIATRIC: Unable to evaluate secondary to clinical condition. . Diagnostic Tests Laboratory Laboratory Tests Test 02/27/17 02/27/17 02/27/17 02/27/17 15:40 16:05 17:30 19:00 Prothrombin Time 11.6 SEC (9.8-11.6) Prothromb Time International 1.0 RATIO Ratio Activated Partial 26.1 SEC Thromboplast Time (24.3-30.1) Sodium Level 158 MEQ/L (136-145) Potassium Level 5.1 MEQ/L (3.5-5.1) Chloride Level 123 MEQ/L (98-107) Carbon Dioxide Level 23.1 MEQ/L (21.0-32.0) Anion Gap 12 MEQ/L (5-15) Blood Urea Nitrogen 127 MG/DL (7-18) Creatinine 5.30 MG/DL (0.60-1.30) Estimat Glomerular Filtration 10 ML/MIN (>89) Rate Random Glucose 112 MG/DL (74-106) Lactic Acid Level 2.8 mmol/L 2.2 mmol/L (0.4-2.0) (0.4-2.0) Calcium Level 8.6 MG/DL (8.5-10.1) Total Bilirubin 0.8 MG/DL (0.2-1.0) Aspartate Amino Transf 78 U/L (15-37) (AST/SGOT) Alanine Aminotransferase 55 U/L (12-78) (ALT/SGPT) Alkaline Phosphatase 144 U/L (45-117) Ammonia 36 MCMOL/L (11-32) Total Creatine Kinase 1077 U/L (39-308) Creatine Kinase MB 4.8 NG/ML (0.5-3.6) Creatine Kinase MB % 0.4 % (0.0-4.0) Troponin I 0.10 NG/ML (0.02-0.05) Total Protein 7.2 GM/DL (6.4-8.2) Albumin 2.7 GM/DL (3.4-5.0) Valproic Acid (Depakene) Level 18 MCG/ML (50-100) Ethyl Alcohol Level LESS THAN 3 MG/DL (0-5) White Blood Count 26.3 TH/MM3 (4.0-11.0) Red Blood Count 4.90 MIL/MM3 (4.50-5.90) Hemoglobin 14.3 GM/DL (13.0-17.0) Hematocrit 44.8 % (39.0-51.0) Mean Corpuscular Volume 91.3 FL (80.0-100.0) Mean Corpuscular Hemoglobin 29.1 PG (27.0-34.0) Mean Corpuscular Hemoglobin 31.9 % Concent (32.0-36.0) Red Cell Distribution Width 14.9 % (11.6-17.2) Platelet Count 246 TH/MM3 (150-450) Mean Platelet Volume 9.3 FL (7.0-11.0) Neutrophils (%) (Auto) 89.6 % (16.0-70.0) Lymphocytes (%) (Auto) 6.1 % (9.0-44.0) Monocytes (%) (Auto) 4.0 % (0.0-8.0) Eosinophils (%) (Auto) 0.0 % (0.0-4.0) Basophils (%) (Auto) 0.3 % (0.0-2.0) Neutrophils # (Auto) 23.6 TH/MM3 (1.8-7.7) Lymphocytes # (Auto) 1.6 TH/MM3 (1.0-4.8) Monocytes # (Auto) 1.1 TH/MM3 (0-0.9) Eosinophils # (Auto) 0.0 TH/MM3 (0-0.4) Basophils # (Auto) 0.1 TH/MM3 (0-0.2) CBC Comment AUTO DIFF Differential Comment AUTO DIFF CONFIRMED Platelet Estimate NORMAL (NORMAL) Platelet Morphology Comment NORMAL (NORMAL) Urine Opiates Screen NEG (NEG) Urine Barbiturates Screen NEG (NEG) Urine Amphetamines Screen NEG (NEG) Urine Benzodiazepines Screen NEG (NEG) Urine Cocaine Screen NEG (NEG) Urine Cannabinoids Screen NEG (NEG) Urine Color YELLOW (YELLW/STRAW) Urine Turbidity CLOUDY (CLEAR) Urine pH 7.0 (5.0-8.5) Urine Specific [place] 1.020 (1.002-1.035) Urine Protein 100 mg/dL (NEG-TRACE) Urine Glucose (UA) NEG mg/dL (NEG) Urine Ketones NEG mg/dL (NEG) Urine Occult Blood MOD (NEG) Urine Nitrite NEG (NEG) Urine Bilirubin NEG (NEG) Urine Urobilinogen 2.0 MG/DL (LESS THAN 2.0) Urine Leukocyte Esterase LARGE (NEG) Urine RBC 23 /hpf (0-3) Urine WBC /hpf (0-5) Urine WBC Clumps MOD (NONE) Urine Bacteria MANY /hpf (NONE) Urine Mucus MANY /lpf (OCC) Microscopic Urinalysis Comment CATH-CULTURE IND Blood Gas Puncture Site RT BRACHIAL Blood Gas Patient Temperature 98.6 Blood Gas HCO3 19 mmol/L (22-26) Blood Gas Base Excess -6.4 mmol/L (-2-2) Blood Gas Oxygen Saturation 98 % (90-100) Arterial Blood pH 7.31 (7.380-7.420) Arterial Blood Partial 38 mmHg (38-42) Pressure CO2 Arterial Blood Partial 383 mmHG Pressure O2 (61-120) Arterial Blood Oxygen Content 17.4 Vol % (12.0-20.0) Arterial Blood 0.6 % (0-4) Carboxyhemoglobin Arterial Blood Methemoglobin 0.8 % (0-2) Blood Gas Hemoglobin 11.9 G/DL (12.0-16.0) Oxygen Delivery Device VENTILATOR Blood Gas Ventilator Setting Blood Gas Inspired Oxygen 100 % Test 02/27/17 02/27/17 02/28/1702/28/17 19:28 22:38 00:30 05:03 Blood Gas Puncture Site LT RADIAL Blood Gas Patient Temperature 98.6 Blood Gas HCO3 19 mmol/L (22-26) Blood Gas Base Excess -4.9 mmol/L (-2-2) Blood Gas Oxygen Saturation 97 % (90-100) Arterial Blood pH 7.40 (7.380-7.420) Arterial Blood Partial 32 mmHg (38-42) Pressure CO2 Arterial Blood Partial 116 mmHG Pressure O2 (61-120) Arterial Blood Oxygen Content 18.0 Vol % (12.0-20.0) Arterial Blood 0.6 % (0-4) Carboxyhemoglobin Arterial Blood Methemoglobin 0.7 % (0-2) Blood Gas Hemoglobin 13.1 G/DL (12.0-16.0) Oxygen Delivery Device VENTILATOR Blood Gas Ventilator Setting 18/500/5PEEP Blood Gas Inspired Oxygen 50 % Lactic Acid Level 1.4 mmol/L 2.0 mmol/L (0.4-2.0) (0.4-2.0) Nasal Screen MRSA (PCR) MRSA NOT DETECTED (NOT DETECT) White Blood Count 21.1 TH/MM3 (4.0-11.0) Red Blood Count 4.69 MIL/MM3 (4.50-5.90) Hemoglobin 13.7 GM/DL (13.0-17.0) Hematocrit 42.9 % (39.0-51.0) Mean Corpuscular Volume 91.6 FL (80.0-100.0) Mean Corpuscular Hemoglobin 29.2 PG (27.0-34.0) Mean Corpuscular Hemoglobin 31.9 % Concent (32.0-36.0) Red Cell Distribution Width 15.2 % (11.6-17.2) Platelet Count 169 TH/MM3 (150-450) Mean Platelet Volume 9.1 FL (7.0-11.0) Neutrophils (%) (Auto) 90.6 % (16.0-70.0) Lymphocytes (%) (Auto) 5.3 % (9.0-44.0) Monocytes (%) (Auto) 3.9 % (0.0-8.0) Eosinophils (%) (Auto) 0.0 % (0.0-4.0) Basophils (%) (Auto) 0.2 % (0.0-2.0) Neutrophils # (Auto) 19.1 TH/MM3 (1.8-7.7) Lymphocytes # (Auto) 1.1 TH/MM3 (1.0-4.8) Monocytes # (Auto) 0.8 TH/MM3 (0-0.9) Eosinophils # (Auto) 0.0 TH/MM3 (0-0.4) Basophils # (Auto) 0.0 TH/MM3 (0-0.2) CBC Comment DIFF FINAL Differential Comment Sodium Level 162 MEQ/L (136-145) Potassium Level 3.6 MEQ/L (3.5-5.1) Chloride Level 132 MEQ/L (98-107) Carbon Dioxide Level 20.1 MEQ/L (21.0-32.0) Anion Gap 10 MEQ/L (5-15) Blood Urea Nitrogen 95 MG/DL (7-18) Creatinine 2.80 MG/DL (0.60-1.30) Estimat Glomerular Filtration 21 ML/MIN (>89) Rate Random Glucose 107 MG/DL (74-106) Calcium Level 7.8 MG/DL (8.5-10.1) Phosphorus Level 3.6 MG/DL (2.5-4.9) Magnesium Level 2.9 MG/DL (1.5-2.5) Total Bilirubin 0.7 MG/DL (0.2-1.0) Aspartate Amino Transf 63 U/L (15-37) (AST/SGOT) Alanine Aminotransferase 45 U/L (12-78) (ALT/SGPT) Alkaline Phosphatase 134 U/L (45-117) Total Protein 6.4 GM/DL (6.4-8.2) Albumin 2.3 GM/DL (3.4-5.0) Random Gentamicin Level 7.7 MCG/ML Test 02/28/17 02/28/17 03/01/17 03/01/17 05:15 15:26 05:31 23:35 Blood Gas Puncture Site RT BRACHIAL Blood Gas Patient Temperature 98.6 Blood Gas HCO3 18 mmol/L (22-26) Blood Gas Base Excess -6.7 mmol/L (-2-2) Blood Gas Oxygen Saturation 97 % (90-100) Arterial Blood pH 7.36 (7.380-7.420) Arterial Blood Partial 32 mmHg (38-42) Pressure CO2 Arterial Blood Partial 206 mmHg Pressure O2 (61-120) Arterial Blood Oxygen Content 18.5 Vol % (12.0-20.0) Arterial Blood 1.0 % (0-4) Carboxyhemoglobin Arterial Blood Methemoglobin 1.3 % (0-2) Blood Gas Hemoglobin 13.3 G/DL (12.0-16.0) Oxygen Delivery Device VENTILATOR Blood Gas Ventilator Setting Blood Gas Inspired Oxygen 50 % Sodium Level 160 MEQ/L 157 MEQ/L (136-145) (136-145) Potassium Level 4.1 MEQ/L 3.2 MEQ/L 4.2 MEQ/L (3.5-5.1) (3.5-5.1) (3.5-5.1) Chloride Level 131 MEQ/L 127 MEQ/L (98-107) (98-107) Carbon Dioxide Level 19.0 MEQ/L 21.7 MEQ/L (21.0-32.0) (21.0-32.0) Anion Gap 10 MEQ/L (5-15) 8 MEQ/L (5-15) Blood Urea Nitrogen 72 MG/DL (7-18) 59 MG/DL (7-18) Creatinine 1.69 MG/DL 1.33 MG/DL (0.60-1.30) (0.60-1.30) Estimat Glomerular Filtration 38 ML/MIN (>89) 51 ML/MIN (>89) Rate Random Glucose 144 MG/DL 151 MG/DL (74-106) (74-106) Calcium Level 8.2 MG/DL 8.2 MG/DL (8.5-10.1) (8.5-10.1) White Blood Count 17.7 TH/MM3 (4.0-11.0) Red Blood Count 4.36 MIL/MM3 (4.50-5.90) Hemoglobin 12.7 GM/DL (13.0-17.0) Hematocrit 39.4 % (39.0-51.0) Mean Corpuscular Volume 90.5 FL (80.0-100.0) Mean Corpuscular Hemoglobin 29.1 PG (27.0-34.0) Mean Corpuscular Hemoglobin 32.2 % Concent (32.0-36.0) Red Cell Distribution Width 14.9 % (11.6-17.2) Platelet Count 155 TH/MM3 (150-450) Mean Platelet Volume 9.4 FL (7.0-11.0) Neutrophils (%) (Auto) 86.7 % (16.0-70.0) Lymphocytes (%) (Auto) 6.8 % (9.0-44.0) Monocytes (%) (Auto) 6.2 % (0.0-8.0) Eosinophils (%) (Auto) 0.1 % (0.0-4.0) Basophils (%) (Auto) 0.2 % (0.0-2.0) Neutrophils # (Auto) 15.4 TH/MM3 (1.8-7.7) Lymphocytes # (Auto) 1.2 TH/MM3 (1.0-4.8) Monocytes # (Auto) 1.1 TH/MM3 (0-0.9) Eosinophils # (Auto) 0.0 TH/MM3 (0-0.4) Basophils # (Auto) 0.0 TH/MM3 (0-0.2) CBC Comment DIFF FINAL Differential Comment Total Bilirubin 0.5 MG/DL (0.2-1.0) Aspartate Amino Transf 63 U/L (15-37) (AST/SGOT) Alanine Aminotransferase 46 U/L (12-78) (ALT/SGPT) Alkaline Phosphatase 152 U/L (45-117) Total Protein 6.2 GM/DL (6.4-8.2) Albumin 2.1 GM/DL (3.4-5.0) Test 03/02/17 03/02/17 04:35 07:35 Creatinine 1.01 MG/DL 0.92 MG/DL (0.60-1.30) (0.60-1.30) Estimat Glomerular Filtration 70 ML/MIN (>89) 77 ML/MIN (>89) Rate Sodium Level 147 MEQ/L (136-145) Potassium Level 3.7 MEQ/L (3.5-5.1) Chloride Level 118 MEQ/L (98-107) Carbon Dioxide Level 23.8 MEQ/L (21.0-32.0) Anion Gap 5 MEQ/L (5-15) Blood Urea Nitrogen 36 MG/DL (7-18) Random Glucose 145 MG/DL (74-106) Calcium Level 7.8 MG/DL (8.5-10.1) Result Diagram: 03/01/17 0531 03/02/17 0735 Microbiology Microbiology Date/Time Procedure Status Source Growth 02/27/17 15:40 Aerobic Blood Culture - Preliminary Resulted Blood Peripheral NO GROWTH IN 3 DAYS 02/27/17 15:40 Anaerobic Blood Culture - Preliminary Resulted Blood Peripheral NO GROWTH IN 3 DAYS 02/27/17 15:45 Aerobic Blood Culture - Preliminary Resulted Blood Peripheral NO GROWTH IN 3 DAYS 02/27/17 15:45 Anaerobic Blood Culture - Preliminary Resulted Blood Peripheral NO GROWTH IN 3 DAYS 02/27/17 16:05 Urine Culture - Final Complete Urine Catheterized Urine Klebsiella Pneumoniae 02/27/17 16:55 Gram Stain - Final Complete Sputum Endotracheal 02/27/17 16:55 Sputum Culture - Final Complete Klebsiella Pneumoniae Imaging Last Impressions Chest X-Ray 02/28/17 0600 Signed Impressions: Service Date/Time: Tuesday, February 28, 2017 05:39 - CONCLUSION: No acute pulmonary infiltrates. No significant change. Cosme Wolf MD Head CT 02/27/17 1527 Signed Impressions: Service Date/Time: Monday, February 27, 2017 15:54 - CONCLUSION: 1. Interval decrease in the previously noted edema involving the left posterior cerebral artery stroke. There is only mild residual. 2. No acute hemorrhage or mass effect. 3. The ventricular system remains stable with dilatation of the lateral and third ventricles. Kamaljit Hurley MD Procedures -02/27/17 -intubation. Assessment and Plan Disease Oriented Problem List: (1) Acute respiratory failure (2) CVA (cerebral vascular accident) (3) A-fib (4) Acute renal failure Symptom Scale: (1) Shortness of breath 0-10 Scale: Unable to quantify Comment: Remains intubated on mechanical ventilation. (2) Debility 0-10 Scale: Unable to quantify Comment: Progressive secondary to physical deconditioning and CVA. Pertinent Non-Medical Issues Psychosocial: Spiritual: Zoroastrian britany. Legal: Ethical issues impacting care: No ethical issues have been identified. . Important Contacts Humaira Cole . . Prognosis Mr. Cole is an 87-year-old male with a medical history of atrial fibrillation , prior strokes 2, TIA, hypertension and prostate cancer status post chemotherapy and radiation in 2013. Patient with a history of physical deconditioning, falls and CVA on 02/20/2017. Patient a very high risk of further complications, progressive decline and . Patient overall prognosis is poor. . Code Status: No Code Plan * CODE STATUS: DNR * MEDICAL DECISION-MAKING: Patient incapacitated at this time secondary to clinical condition. Healthcare proxy is his Humaira Cole. * GOALS OF CARE: Had family meeting with pt's daughter and pt's spouse. Family has made the decision to transition to comfort measures only, and with terminal extubation, likely Monday or Monday. Reviewed that exhibits would need to be signed. They are amenable to hospice consult to provide extra layer of support during the weekend. * Amenable to hospice consult. * SYMPTOMS: == Dyspnea: Currently intubated on mechanical ventilation. * Debility: Progressive secondary to physical deconditioning and CVA. Patient at rehabilitation facility for physical strengthening prior to these hospitalization. * Palliative care contact information has been provided to patient's family. * Palliative care will continue to follow-up with this patient and family throughout this hospitalization as the clinical course evolves. Time Spent Total Floor Time (mins): 45 Face to Face Time (mins): 35 >50% Counseling/Coord of Care: Yes Attestation To help prompt me to consider important information that might be impacting today's encounter and assessment, information from prior notes written by myself or my colleagues may have been "brought forward" into today's note. My signature on this note, however, is an attestation that I personally performed the exam, history, and/or decision-making noted today, and, unless otherwise indicated, the interactions with patient, family, and staff as well as the review of records all occurred today. I also attest that the listed assessment and stated plan reflect my best clinical judgment today based on the combination of historical information, prior notes, and today's exam/ interactions. When time spent is documented, it refers only to time spent today by the signer, or if indicated, combined time spent today by collaborating physician/nurse practitioner. Curry Leach MD Mar 02, 2017 13:03
[2017-03-02] MEDS ORDERED: MORPHINE SULFATE 8 MG/ML INJ IV PUSH PRN (13:15)
[2017-03-02] MEDS ORDERED: LORazepam 2 MG/ML VIAL IV PRN ×2 (13:15)
[2017-03-02] MEDS ORDERED: MORPHINE SULFATE 4 MG/ML INJ IV PRN (13:15)
[2017-03-02] MEDS ORDERED: ADENOSINE IV SOLN 3 MG/ML 2 ML VIAL ONE (15:39)
[2017-03-02] MEDS ORDERED: ADENOSINE IV SOLN 3 MG/ML 2 ML VIAL IV PUSH ONE (15:45)
--- NOTE | 2017-03-02 16:48 | EKG ---
Date Performed: 03/02/2017 Time Performed: 15:42:52 PTAGE: 89 years EKG: Sinus rhythm . Extensive ST-T changes are nonspecific Borderline ECG COMPARED TO PRIOR ELECTROCARDIOGRAM, PVCs are no longer present. PREVIOUS TRACING : 02/27/2017 16.48 DOCTOR: Loki Alba Interpretating Date/Time 03/02/2017 16:47:38
[2017-03-02] MEDS: CEFEPIME 2000 MG/NS 100 ML IV SCH ×2 (20:38)
[2017-03-03] VITALS (16 sets, daily range): BP systolic 99–159; BP diastolic 52–70; PULSE 69–110; RESP 17–20; TEMP 98.2–98.8; O2SAT 99–100
[2017-03-03] MEDS: CHLORHEXIDINE GLUCONATE 2 % 1 PACK (2 CLOTHS) TOP SCH (03:17)
[2017-03-03] MEDS: RESP: ALBUTEROL 2.5 MG/IPRATROPIUM 0.5 MG NEB (SCH) INH ×4 (03:59→20:40)
[2017-03-03] MEDS: INSULIN NovoLIN REGULAR SUPPLEMENTAL SCALE SQ SCH ×4 (04:43→21:02)
[2017-03-03] MEDS: FREE WATER G-TUBE SCH ×4 (05:52→18:00)
[2017-03-03] MEDS: DEXTROSE 5% IN WATE 1000ML INJ 1,000 ML IV SCH ×2 (08:00→18:00)
[2017-03-03] MEDS: CHLORHEXIDINE 0.12% (ORAL KIT) 15 ML CUP MT SCH ×2 (08:00→20:59)
[2017-03-03] MEDS: SODIUM CHLORIDE 0.9% FLUSH 10 ML FLUSH IV FLUSH SCH ×2 (09:00→21:01)
[2017-03-03] MEDS: FAMOTIDINE 20 MG/2 ML VIAL IV PUSH SCH ×2 (09:00→21:01)
[2017-03-03] MEDS: ARTIFICIAL TEARS OPTH SOLN 15 ML BTL EACH EYE SCH ×3 (09:20→18:00)
[2017-03-03] MEDS: DOCUSATE SODIUM 100 MG/10 ML UDC G-TUBE SCH ×2 (09:20→20:59)
[2017-03-03] MEDS: METOPROLOL TARTRATE 25 MG TAB PO SCH ×2 (09:20→21:01)
--- NOTE | 2017-03-03 18:23 | HHI.HCPN ---
Reason for visit a. To assist with evaluation and management of symptoms including: Debility and shortness of breath. b. To assist medical decision maker(s) with: better understanding of current medical conditions; weighing benefits/burdens of medical treatment options; making medical treatment decisions. . Subjective/Interval History Pt unresponsive on my visit, remains on the ventilator. Family/friend interactions Spoke with Daughter Justina over the phone. Still await for family who will arrive tomorrow. Tentative plan is for extubation Monday. Plan on meeting with [facility]. Advance Directives Living Will: Never completed Health Care Surrogate: Never completed Durable Power of Senior Quality Analyst: Completed, but not made available Advance Directive Specifics Health Care Surrogate(s): Healthcare proxy is in patient's Humaira. Documented care wishes: No living will completed. Objective Vital Signs Date Time Temp Pulse Resp B/P Pulse Ox O2 Delivery O2 Flow Rate FiO2 03/03/17 16:03 99 35 03/03/17 16:00 72 03/03/17 14:00 74 03/03/17 12:00 73 03/03/17 10:00 75 03/03/17 08:37 100 35 03/03/17 08:00 71 03/03/17 06:02 77 03/03/17 04:00 74 03/03/17 04:00 100 35 03/03/17 04:00 98.2 74 18 99/52 100 03/03/17 02:00 79 03/03/17 01:29 100 35 03/03/17 00:00 80 03/03/17 00:00 98.8 80 20 112/56 100 03/02/17 22:00 95 03/02/17 20:13 99 35 03/02/17 20:00 99.1 106 22 139/65 100 03/02/17 20:00 114 Intake & Output 03/03/17 03/03/17 07:00 19:00 Intake Total 2970 ml 1158 ml Output Total 800 ml 400 ml Balance 2170 ml 758 ml IV Total 1500 ml 1158 ml Tube Feeding 870 ml Other 600 ml Output Urine Total 800 ml 400 ml Physical Exam CONSTITUTIONAL/GENERAL: This is an adequately nourished patient, in no apparent distress. Intubated on mechanical ventilation. TUBES/LINES/DRAINS: PIV's, ETT, OG, Presley catheter, bilateral soft wrist restraints. SKIN: No jaundice, rashes, or lesions. Ecchymoses on upper and lower extremities. No wounds seen anteriorly. Skin temperature appropriate. Not diaphoretic. HEAD: Atraumatic. Normocephalic. EYES: Pupils equal and round and reactive. No scleral icterus. ENT: Unable to evaluate hearing. Nose without bleeding or purulent drainage. Moist oral mucosa. NECK: Trachea midline. Supple. CARDIOVASCULAR: Regular rate and rhythm. Peripheral pulses symmetric. No edema. RESPIRATORY/CHEST: Symmetric, unlabored respirations. Clear to auscultation. Intubated on mechanical ventilation. GASTROINTESTINAL: Abdomen soft, nondistended. Bowel sounds present. GENITOURINARY: Without palpable bladder distension. Presley catheter in place. MUSCULOSKELETAL: Extremities without edema. NEUROLOGICAL: Not sedated. Minimally responsive to tactile or verbal stimuli. . PSYCHIATRIC: Unable to evaluate secondary to clinical condition. . Diagnostic Tests Laboratory Laboratory Tests Test 03/01/17 03/01/17 03/02/17 03/02/17 05:31 23:35 04:35 07:35 White Blood Count 17.7 TH/MM3 (4.0-11.0) Red Blood Count 4.36 MIL/MM3 (4.50-5.90) Hemoglobin 12.7 GM/DL (13.0-17.0) Hematocrit 39.4 % (39.0-51.0) Mean Corpuscular Volume 90.5 FL (80.0-100.0) Mean Corpuscular Hemoglobin 29.1 PG (27.0-34.0) Mean Corpuscular Hemoglobin 32.2 % Concent (32.0-36.0) Red Cell Distribution Width 14.9 % (11.6-17.2) Platelet Count 155 TH/MM3 (150-450) Mean Platelet Volume 9.4 FL (7.0-11.0) Neutrophils (%) (Auto) 86.7 % (16.0-70.0) Lymphocytes (%) (Auto) 6.8 % (9.0-44.0) Monocytes (%) (Auto) 6.2 % (0.0-8.0) Eosinophils (%) (Auto) 0.1 % (0.0-4.0) Basophils (%) (Auto) 0.2 % (0.0-2.0) Neutrophils # (Auto) 15.4 TH/MM3 (1.8-7.7) Lymphocytes # (Auto) 1.2 TH/MM3 (1.0-4.8) Monocytes # (Auto) 1.1 TH/MM3 (0-0.9) Eosinophils # (Auto) 0.0 TH/MM3 (0-0.4) Basophils # (Auto) 0.0 TH/MM3 (0-0.2) CBC Comment DIFF FINAL Differential Comment Sodium Level 157 MEQ/L 147 MEQ/L (136-145) (136-145) Potassium Level 3.2 MEQ/L 4.2 MEQ/L 3.7 MEQ/L (3.5-5.1) (3.5-5.1) (3.5-5.1) Chloride Level 127 MEQ/L 118 MEQ/L (98-107) (98-107) Carbon Dioxide Level 21.7 MEQ/L 23.8 MEQ/L (21.0-32.0) (21.0-32.0) Anion Gap 8 MEQ/L (5-15) 5 MEQ/L (5-15) Blood Urea Nitrogen 59 MG/DL (7-18) 36 MG/DL (7-18) Creatinine 1.33 MG/DL 1.01 MG/DL 0.92 MG/DL (0.60-1.30) (0.60-1.30) (0.60-1.30) Estimat Glomerular Filtration 51 ML/MIN (>89) 70 ML/MIN (>89) 77 ML/MIN (>89) Rate Random Glucose 151 MG/DL 145 MG/DL (74-106) (74-106) Calcium Level 8.2 MG/DL 7.8 MG/DL (8.5-10.1) (8.5-10.1) Total Bilirubin 0.5 MG/DL (0.2-1.0) Aspartate Amino Transf 63 U/L (15-37) (AST/SGOT) Alanine Aminotransferase 46 U/L (12-78) (ALT/SGPT) Alkaline Phosphatase 152 U/L (45-117) Total Protein 6.2 GM/DL (6.4-8.2) Albumin 2.1 GM/DL (3.4-5.0) Result Diagram: 03/01/17 0531 03/02/17 0735 Procedures -02/27/17 -intubation. Assessment and Plan Disease Oriented Problem List: (1) Acute respiratory failure (2) CVA (cerebral vascular accident) (3) A-fib (4) Acute renal failure Symptom Scale: (1) Shortness of breath 0-10 Scale: Unable to quantify Comment: Remains intubated on mechanical ventilation. (2) Debility 0-10 Scale: Unable to quantify Comment: Progressive secondary to physical deconditioning and CVA. Pertinent Non-Medical Issues Psychosocial: Spiritual: Sabianism britany. Legal: Ethical issues impacting care: No ethical issues have been identified. . Important Contacts Humaira Cole . . Prognosis Mr. Cole is an 87-year-old male with a medical history of atrial fibrillation , prior strokes 2, TIA, hypertension and prostate cancer status post chemotherapy and radiation in 2013. Patient with a history of physical deconditioning, falls and CVA on 02/20/2017. Patient a very high risk of further complications, progressive decline and . Patient overall prognosis is poor. . Code Status: No Code Plan * CODE STATUS: DNR * MEDICAL DECISION-MAKING: Patient incapacitated at this time secondary to clinical condition. Healthcare proxy is his Humaira Cole. * GOALS OF CARE: Spoke with Daughter Justina over the phone. Still await for family who will arrive tomorrow. Tentative plan is for extubation Monday afternoon. Plan on meeting with Hospice Tonight. Exhibit signed by pallative team and attending physician. D/w nurse and Justina daughter, and family plan on signing exhibit tonight. * SYMPTOMS: == Dyspnea: Currently intubated on mechanical ventilation. * Debility: Progressive secondary to physical deconditioning and CVA. Patient at rehabilitation facility for physical strengthening prior to these hospitalization. * Palliative care contact information has been provided to patient's family. * Palliative care will continue to follow-up with this patient and family throughout this hospitalization as the clinical course evolves. Time Spent Total Floor Time (mins): 40 Face to Face Time (mins): 28 >50% Counseling/Coord of Care: Yes Attestation To help prompt me to consider important information that might be impacting today's encounter and assessment, information from prior notes written by myself or my colleagues may have been "brought forward" into today's note. My signature on this note, however, is an attestation that I personally performed the exam, history, and/or decision-making noted today, and, unless otherwise indicated, the interactions with patient, family, and staff as well as the review of records all occurred today. I also attest that the listed assessment and stated plan reflect my best clinical judgment today based on the combination of historical information, prior notes, and today's exam/ interactions. When time spent is documented, it refers only to time spent today by the signer, or if indicated, combined time spent today by collaborating physician/nurse practitioner. Curry Leach MD Mar 03, 2017 18:22
--- NOTE | 2017-03-03 18:25 | HHI.CCPN ---
Subjective Remarks/Hospital Course Patient is a 89-year-old male who presented to the ED for altered mental status from his nursing facility. Patient has history of A. fib, hyperlipidemia and was recently admitted at [facility] from 02/10 through 02/17 for CVA. Patient has been convalescing at his rehabilitation facility where he was reportedly last seen normal week ago and today was noted to be GCS 3 prompting them to call EMS. Reportedly the patient's O2 sat was in the 70's, and the patient intubated per EMS. Vital signs stable en route. No family present and history is otherwise limited. Critical care medicine's consult for management. 02/28 Patient remains intubated, on no sedation. 03/01: Remains encephalopathic off sedation, orally intubated on mechanical ventilation. Not awake enough for extubation. 03/02: Remains encephalopathic off sedation, orally intubated on mechanical ventilation. On low-dose fentanyl for comfort. Family is planning on possible transition to comfort measures tomorrow. 03/03: Remains encephalopathic, orally intubated on mechanical ventilation. Appears comfortable Objective Vital Signs Date Time Temp Pulse Resp B/P Pulse Ox O2 Delivery O2 Flow Rate FiO2 03/03/17 16:03 99 35 03/03/17 16:00 72 03/03/17 04:00 98.2 18 99/52 02/27/17 23:29 Ventilator Intake and Output 03/02/17 03/02/17 03/03/17 08:00 16:00 00:00 Intake Total 986 ml 1765 ml 1450 ml Output Total 400 ml 425 ml 450 ml Balance 586 ml 1340 ml 1000 ml Result Diagram: 03/01/17 0531 03/02/17 0735 Imaging Last Impressions Chest X-Ray 02/28/17 0600 Signed Impressions: Service Date/Time: Tuesday, February 28, 2017 05:39 - CONCLUSION: No acute pulmonary infiltrates. No significant change. Cosme Wolf MD Head CT 02/27/17 1527 Signed Impressions: Service Date/Time: Monday, February 27, 2017 15:54 - CONCLUSION: 1. Interval decrease in the previously noted edema involving the left posterior cerebral artery stroke. There is only mild residual. 2. No acute hemorrhage or mass effect. 3. The ventricular system remains stable with dilatation of the lateral and third ventricles. Kamaljit Hurley MD Objective Remarks GENERAL: This is a critically ill-appearing male intubated SKIN: Warm and dry. HEAD: Atraumatic. Normocephalic. EYES: Pupils equal and round. No scleral icterus. No injection or drainage. ENT: No nasal bleeding or discharge. Mucous membranes pink and moist. NECK: Trachea midline. No JVD. CARDIOVASCULAR: Normal rate, regular rhythm. RESPIRATORY: No accessory muscle use. Clear to auscultation. Breath sounds equal bilaterally. GASTROINTESTINAL: Abdomen soft, non-tender, nondistended. No guarding. MUSCULOSKELETAL: Extremities without clubbing, cyanosis, or edema. No obvious deformities. NEUROLOGICAL: Intubated and sedated A/P Assessment and Plan Plan by systems: Neurologic: Metabolic encephalopathy possibly secondary to sepsis History of posterior-superior cerebral artery stroke Hypothermia Neurochecks per ICU protocol Fentanyl infusion if needed for sedation. Avoid sedatives. 02/27 CT brain decrease in the previously noted edema involving the left posterior cerebral artery stroke. No acute hemorrhage or mass effect. The ventricular system remains stable with dilatation of the lateral and third ventricles. Respiratory: Acute hypoxic respiratory failure Possible aspiration Continue with vent support keep sat >92% Bronchodilators every 6 hours scheduled, every 2 hours when necessary ICU vent bundle, SBT trials as melody CXT: No pulm infiltrates. Cardiovascular: Cerebrovascular disease Cardiovascular disease On Lopressor 25mg Q12. Monitor HR and BP keep MAP >65 mmHg, Hydralazine 10mg IV Q6PRN SBP>160. Renal: Hypernatremia Dehydration ARF- improving Monitor renal function, I/O;s, avoid nephrotoxins Renal function improving Continue IVF D5W@100m/hr, Place on Free H20 250ml Q6 monitor sodium level. FEN/GI: Pepcid twice a day GI prophylaxis. Start TF- Nepro with goal rate 40ml/hr Heme/ID: Septic shock Urosepsis Leukocytosis...trending down Continue with Cefepime. d/c Gentamicin. Patient was given Cefepime and Vanco in ED. Monitor for signs of infections ( fever, WBC) WBC trending down. CXR on arrival: Clear lungs. Follow up on cultures from 02/27 ( Blood, sputum, urine) Endocrine: Glucose monitoring per ICU protocol -- SSI Prophylaxis: GI Prophylaxis Pepcid DVT Prophylaxis -- SCDs, heparin SQ Lines: Peripheral IVs 2. Dr. Owusu had a long discussion with patient's daughter and mother at bedside on 03/01. They do not feel patient would want a tracheostomy or PEG tube. I explained that he is too encephalopathic to consider extubation safely. They are planning on de-escalation of therapy with comfort measures only. Palliative care following to assist with deciding goals of therapy. CCT 30 mins Silvio Owusu MD Mar 03, 2017 18:25
[2017-03-03] MEDS: CEFEPIME 2000 MG/NS 100 ML IV SCH ×2 (21:00)
[2017-03-04] VITALS (16 sets, daily range): BP systolic 106–134; BP diastolic 58–65; PULSE 70–116; RESP 18–22; TEMP 98.1–98.7; O2SAT 96–100
[2017-03-04] MEDS: fentaNYL DRIP 250 ML IV SCH (00:55)
[2017-03-04] MEDS: CHLORHEXIDINE GLUCONATE 2 % 1 PACK (2 CLOTHS) TOP SCH (04:00)
[2017-03-04] MEDS: FREE WATER G-TUBE SCH ×3 (06:00→18:00)
[2017-03-04] MEDS: FAMOTIDINE 20 MG/2 ML VIAL IV PUSH SCH ×2 (08:01→20:23)
[2017-03-04] MEDS: METOPROLOL TARTRATE 25 MG TAB PO SCH ×2 (08:01→20:24)
[2017-03-04] MEDS: DOCUSATE SODIUM 100 MG/10 ML UDC G-TUBE SCH ×2 (08:01→20:24)
[2017-03-04] MEDS: ARTIFICIAL TEARS OPTH SOLN 15 ML BTL EACH EYE SCH ×3 (08:02→18:00)
[2017-03-04] MEDS: CHLORHEXIDINE 0.12% (ORAL KIT) 15 ML CUP MT SCH ×2 (08:02→20:00)
[2017-03-04] MEDS: DEXTROSE 5% IN WATE 1000ML INJ 1,000 ML IV SCH ×2 (08:02→13:21)
[2017-03-04] MEDS: SODIUM CHLORIDE 0.9% FLUSH 10 ML FLUSH IV FLUSH SCH ×2 (08:03→20:24)
[2017-03-04] MEDS: INSULIN NovoLIN REGULAR SUPPLEMENTAL SCALE SQ SCH (10:00)
--- NOTE | 2017-03-04 13:39 | HHI.CCPN ---
Subjective Remarks/Hospital Course Patient is a 89-year-old male who presented to the ED for altered mental status from his nursing facility. Patient has history of A. fib, hyperlipidemia and was recently admitted at [facility] from 02/10 through 02/17 for CVA. Patient has been convalescing at his rehabilitation facility where he was reportedly last seen normal week ago and today was noted to be GCS 3 prompting them to call EMS. Reportedly the patient's O2 sat was in the 70's, and the patient intubated per EMS. Vital signs stable en route. No family present and history is otherwise limited. Critical care medicine's consult for management. 02/28 Patient remains intubated, on no sedation. 03/01: Remains encephalopathic off sedation, orally intubated on mechanical ventilation. Not awake enough for extubation. 03/02: Remains encephalopathic off sedation, orally intubated on mechanical ventilation. On low-dose fentanyl for comfort. Family is planning on possible transition to comfort measures tomorrow. 03/03: Remains encephalopathic, orally intubated on mechanical ventilation. Appears comfortable. 03/04: Remains encephalopathic, on mechanical ventilation. Objective Vital Signs Date Time Temp Pulse Resp B/P Pulse Ox O2 Delivery O2 Flow Rate FiO2 03/04/17 12:00 98.2 70 18 106/65 100 03/04/17 12:00 35 Intake and Output 03/03/17 03/03/17 03/04/17 08:00 16:00 00:00 Intake Total 1520 ml 1158 ml 1146 ml Output Total 350 ml 400 ml 400 ml Balance 1170 ml 758 ml 746 ml Result Diagram: 03/01/17 0531 03/04/17 0607 Imaging Last Impressions Chest X-Ray 02/28/17 0600 Signed Impressions: Service Date/Time: Tuesday, February 28, 2017 05:39 - CONCLUSION: No acute pulmonary infiltrates. No significant change. Cosme Wolf MD Head CT 02/27/17 1527 Signed Impressions: Service Date/Time: Monday, February 27, 2017 15:54 - CONCLUSION: 1. Interval decrease in the previously noted edema involving the left posterior cerebral artery stroke. There is only mild residual. 2. No acute hemorrhage or mass effect. 3. The ventricular system remains stable with dilatation of the lateral and third ventricles. Kamaljit Hurley MD Objective Remarks GENERAL: This is a critically ill-appearing male intubated SKIN: Warm and dry. HEAD: Atraumatic. Normocephalic. EYES: Pupils equal and round. No scleral icterus. No injection or drainage. ENT: No nasal bleeding or discharge. Mucous membranes pink and moist. NECK: Trachea midline. No JVD. CARDIOVASCULAR: Normal rate, regular rhythm. RESPIRATORY: No accessory muscle use. Clear to auscultation. Breath sounds equal bilaterally. GASTROINTESTINAL: Abdomen soft, non-tender, nondistended. No guarding. MUSCULOSKELETAL: Extremities without clubbing, cyanosis, or edema. No obvious deformities. NEUROLOGICAL: Intubated and sedated A/P Assessment and Plan Plan by systems: Neurologic: Metabolic encephalopathy possibly secondary to sepsis History of posterior-superior cerebral artery stroke Hypothermia Neurochecks per ICU protocol Fentanyl infusion if needed for sedation. Avoid sedatives. 02/27 CT brain decrease in the previously noted edema involving the left posterior cerebral artery stroke. No acute hemorrhage or mass effect. The ventricular system remains stable with dilatation of the lateral and third ventricles. Respiratory: Acute hypoxic respiratory failure Possible aspiration Continue with vent support keep sat >92% Bronchodilators every 6 hours scheduled, every 2 hours when necessary ICU vent bundle CXT: No pulm infiltrates. Cardiovascular: Cerebrovascular disease Cardiovascular disease On Lopressor 25mg Q12. Monitor HR and BP keep MAP >65 mmHg, Hydralazine 10mg IV Q6PRN SBP>160. Renal: Hypernatremia Dehydration ARF- improving Monitor renal function, I/O;s, avoid nephrotoxins Renal function improving Continue IVF D5W@100m/hr, Place on Free H20 250ml Q6 FEN/GI: Pepcid twice a day GI prophylaxis. Start TF- Nepro with goal rate 40ml/hr Heme/ID: Septic shock Urosepsis Leukocytosis...trending down Continue with Cefepime. d/c Gentamicin. Patient was given Cefepime and Vanco in ED. Monitor for signs of infections ( fever, WBC) WBC trending down. CXR on arrival: Clear lungs. Follow up on cultures from 02/27 ( Blood, sputum, urine) Endocrine: Glucose monitoring per ICU protocol -- SSI Prophylaxis: GI Prophylaxis Pepcid DVT Prophylaxis -- SCDs, heparin SQ Lines: Peripheral IVs 2. Dr. Owusu had a long discussion with patient's daughter and mother at bedside on 03/01. They do not feel patient would want a tracheostomy or PEG tube. I explained that he is too encephalopathic to consider extubation safely. They are planning on de-escalation of therapy with comfort measures only. Palliative care following to assist with deciding goals of therapy. CCT 30 mins Silvio Owusu MD Mar 04, 2017 13:39
[2017-03-04] MEDS ORDERED: MORPHINE SULFATE 8 MG/ML INJ IV PUSH PRN ×2 (15:45)
[2017-03-04] MEDS ORDERED: HYOSCYAMINE 0.125 MG TAB SL PRN (16:00)
[2017-03-04] MEDS ORDERED: LORazepam 2 MG/ML VIAL IV PRN ×2 (16:00)
[2017-03-04] MEDS: MORPHINE SULFATE 8 MG/ML INJ IV PUSH SCH ×2 (16:40→20:23)
[2017-03-05] VITALS: BP 109/54; PULSE 111; RESP 20; TEMP 99; O2SAT 96
[2017-03-05] MEDS: MORPHINE SULFATE 8 MG/ML INJ IV PUSH SCH ×3 (00:24→09:42)
[2017-03-05 02:00] VITALS: PULSE 11; PULSE 111
[2017-03-05] MEDS: CHLORHEXIDINE GLUCONATE 2 % 1 PACK (2 CLOTHS) TOP SCH (03:32)
[2017-03-05 04:00] VITALS: BP 119/58; PULSE 105; PULSE 108; RESP 24; TEMP 98.2; O2SAT 97
[2017-03-05 06:00] VITALS: PULSE 99
[2017-03-05] MEDS: FREE WATER G-TUBE SCH (06:00)
[2017-03-05 08:00] VITALS: BP 112/59; PULSE 96; RESP 13; TEMP 97.9; O2SAT 96
[2017-03-05] MEDS: CHLORHEXIDINE 0.12% (ORAL KIT) 15 ML CUP MT SCH (08:00)
[2017-03-05] MEDS: METOPROLOL TARTRATE 25 MG TAB PO SCH (09:00)
[2017-03-05] MEDS: FAMOTIDINE 20 MG/2 ML VIAL IV PUSH SCH (09:00)
[2017-03-05] MEDS: SODIUM CHLORIDE 0.9% FLUSH 10 ML FLUSH IV FLUSH SCH (09:00)
[2017-03-05] MEDS: DOCUSATE SODIUM 100 MG/10 ML UDC G-TUBE SCH (09:00)
[2017-03-05] MEDS: ARTIFICIAL TEARS OPTH SOLN 15 ML BTL EACH EYE SCH (09:00)
[2017-03-05 10:00] VITALS: PULSE 91
[2017-03-05] MEDS: DEXTROSE 5% IN WATE 1000ML INJ 1,000 ML IV SCH (10:00)
--- NOTE | 2017-04-22 15:03 | HHI.DS ---
Discharge Summary Admission Date Feb 27, 2017 at 17:18 Admitting Diagnosis sepsis, UTI, acute respiratory failure, acute renal failure, uremia Brief History Patient is a 89-year-old male who presented to the ED for altered mental status from his nursing facility. Patient has history of A. fib, hyperlipidemia and was recently admitted at [facility] from 02/10 through 02/17 for CVA. Patient has been convalescing at his rehabilitation facility where he was reportedly last seen normal week ago and today was noted to be GCS 3 prompting them to call EMS. Reportedly the patient's O2 sat was in the 70's, and the patient intubated per EMS. Vital signs stable en route. No family present and history is otherwise limited. Local care medicine's consult for management. History PFSH Past Medical History Hx Anticoagulant Therapy: Yes (COUMADIN DAILY) Arthritis: No Asthma: No Autoimmune Disease: No Blood Disorders: No Anxiety: No Depression: No Heart Rhythm Problems: No Cancer: Yes (PROSTATE) Cardiovascular Problems: Yes (htn on meds) High Cholesterol: Yes Chemotherapy: Yes (2014 - PROSTATE CA) Chest Pain: No Congestive Heart Failure: No COPD: No Cerebrovascular Accident: Yes (X2 LAST ONE 2 YEARS AGO) Diminished Hearing: Yes Endocrine: No Gastrointestinal Disorders: No GERD: No Genitourinary: No Headaches: No Hiatal Hernia: No Hypertension: Yes Immune Disorder: No Implanted Vascular Access Dvce: No Kidney Stones: No Musculoskeletal: No Neurologic: Yes (HX OF TIA 7 YEARS AGO) Psychiatric: No Reproductive: No Respiratory: No Immunizations Current: No Radiation Therapy: Yes Renal Failure: No Seizures: No Sickle Cell Disease: No Sleep Apnea: No Thyroid Disease: No Triglycerides - High: Yes Ulcer: No ?: Unknown Past Surgical History Abdominal Surgery: No AICD: No Arteriovenous Shunt: No Cardiac Surgery: No Ear Surgery: No Endocrine Surgery: No Eye Surgery: Yes (R EYE CATARACT EXTRACTION) Genitourinary Surgery: No Gynecologic Surgery: No Insulin Pump: No Joint Replacement: No Neurologic Surgery: No Pacemaker: No Thoracic Surgery: No Other Surgery: Yes (VEIN STRIPPING BOTH LEGS) Social History Alcohol Use: Yes (WINE DAILY 1 GLASS DAILY) Tobacco Use: No Substance Use: No Allergies-Medications Allergies-Medications (Allergen,Severity, Reaction): Coded Allergies: Iodine (Verified Allergy, Severe, Anaphylaxis, 02/10/17) Reported Meds & Prescriptions Reported Meds & Active Scripts Active Aspirin 325 Mg Tab 325 Mg PO DAILY Reported Trazodone (Trazodone HCl) 50 Mg Tab 50 Mg PO HS Valsartan 160 Mg Tab 160 Mg PO DAILY Probiotic (Lactobacillus Acidophilus) 1 Cap Cap 1 Cap PO DAILY Pravastatin 20 Mg Tab 20 Mg PO HS Gabapentin 300 Mg Cap 300 Mg PO DAILY Donepezil 5 Mg Tab 5 Mg PO HS Depakote DR (Divalproex Sodium) 250 Mg Tabdr 250 Mg PO HS Vitamin D3 (Cholecalciferol) 2,000 Unit Tab 2,000 Units PO DAILY ROS Review of Systems ROS Limitations: Clinical Condition, Intubated, Altered Mental Status Imaging Last Impressions Chest X-Ray 02/28/17 0600 Signed Impressions: Service Date/Time: Tuesday, February 28, 2017 05:39 - CONCLUSION: No acute pulmonary infiltrates. No significant change. Cosme Wolf MD Head CT 02/27/17 1527 Signed Impressions: Service Date/Time: Monday, February 27, 2017 15:54 - CONCLUSION: 1. Interval decrease in the previously noted edema involving the left posterior cerebral artery stroke. There is only mild residual. 2. No acute hemorrhage or mass effect. 3. The ventricular system remains stable with dilatation of the lateral and third ventricles. Kamaljit Hurley MD PE at Discharge GENERAL: This is a critically ill-appearing male SKIN: Warm and dry. HEAD: Atraumatic. Normocephalic. EYES: Pupils equal and round. No scleral icterus. No injection or drainage. ENT: No nasal bleeding or discharge. Mucous membranes pink and moist. NECK: Trachea midline. No JVD. CARDIOVASCULAR: Normal rate, regular rhythm. RESPIRATORY: No accessory muscle use. Scattered rhonchi. Breath sounds equal bilaterally. GASTROINTESTINAL: Abdomen soft, non-tender, nondistended. No guarding. MUSCULOSKELETAL: Extremities without clubbing, cyanosis, or edema. No obvious deformities. NEUROLOGICAL: Encephalopathic not arousable. Hospital Course Patient is a 89-year-old male who presented to the ED for altered mental status from his nursing facility. Patient has history of A. fib, hyperlipidemia and was recently admitted at [facility] from 02/10 through 02/17 for CVA. Patient has been convalescing at his rehabilitation facility where he was reportedly last seen normal week ago and today was noted to be GCS 3 prompting them to call EMS. Reportedly the patient's O2 sat was in the 70's, and the patient intubated per EMS. Vital signs stable en route. No family present and history is otherwise limited. Critical care medicine's consult for management. 02/28 Patient remains intubated, on no sedation. 03/01: Remains encephalopathic off sedation, orally intubated on mechanical ventilation. Not awake enough for extubation. 03/02: Remains encephalopathic off sedation, orally intubated on mechanical ventilation. On low-dose fentanyl for comfort. Family is planning on possible transition to comfort measures tomorrow. 03/03: Remains encephalopathic, orally intubated on mechanical ventilation. Appears comfortable. 03/04: Remains encephalopathic, on mechanical ventilation. Assessment and Plan Plan by systems: Neurologic: Metabolic encephalopathy possibly secondary to sepsis History of posterior-superior cerebral artery stroke Hypothermia Neurochecks per ICU protocol Fentanyl infusion if needed for sedation. Avoid sedatives. 02/27 CT brain decrease in the previously noted edema involving the left posterior cerebral artery stroke. No acute hemorrhage or mass effect. The ventricular system remains stable with dilatation of the lateral and third ventricles. Respiratory: Acute hypoxic respiratory failure Possible aspiration Continue with vent support keep sat >92% Bronchodilators every 6 hours scheduled, every 2 hours when necessary ICU vent bundle CXT: No pulm infiltrates. Cardiovascular: Cerebrovascular disease Cardiovascular disease On Lopressor 25mg Q12. Monitor HR and BP keep MAP >65 mmHg, Hydralazine 10mg IV Q6PRN SBP>160. Renal: Hypernatremia Dehydration ARF- improving Monitor renal function, I/O;s, avoid nephrotoxins Renal function improving Continue IVF D5W@100m/hr, Place on Free H20 250ml Q6 FEN/GI: Pepcid twice a day GI prophylaxis. Start TF- Nepro with goal rate 40ml/hr Heme/ID: Septic shock Urosepsis Leukocytosis...trending down Continue with Cefepime. d/c Gentamicin. Patient was given Cefepime and Vanco in ED. Monitor for signs of infections ( fever, WBC) WBC trending down. CXR on arrival: Clear lungs. Follow up on cultures from 02/27 ( Blood, sputum, urine) Endocrine: Glucose monitoring per ICU protocol -- SSI Prophylaxis: GI Prophylaxis Pepcid DVT Prophylaxis -- SCDs, heparin SQ Lines: Peripheral IVs 2. Dr. Owusu had a long discussion with patient's daughter and mother at bedside on 03/01. They do not feel patient would want a tracheostomy or PEG tube. he explained that patient is too encephalopathic to consider extubation safely. Family decided to proceed with de-escalation of therapy with comfort measures only. Palliative care following and with deciding goals of therapy. Patient subsequently underwent terminal wean and was extubated on 03/05/2017 with comfort measures only. He was subsequently discharged to hospice facility. Pt Condition on Discharge: Guarded Discharge Disposition: Hospice/Med Facility Discharge Instructions DIET: Follow Instructions for: As Tolerated, No Restrictions, Soft Diet Activities you can perform: Continue Bedrest Silvio Owusu MD Apr 22, 2017 15:03
== END 2017-03-05 11:25 | disposition hospice, inpatient (51) | DRG 871 ==
LOC: NEPE 15:24 → NEDA 17:18 → NEDH 21:22 → HIMN 02-28 00:15
PROVIDERS: ADMIT Anesthesiology; ATTEND Anesthesiology
DX: A41.9 Sepsis, unspecified organism (principal); G93.41 Metabolic encephalopathy; I63.532 Cerebral infarction due to unspecified occlusion or stenosis of left posterior cerebral artery; N17.9 Acute kidney failure, unspecified; J96.01 Acute respiratory failure with hypoxia; J96.02 Acute respiratory failure with hypercapnia; E87.0 Hyperosmolality and hypernatremia; G25.9 Extrapyramidal and movement disorder, unspecified; I48.91 Unspecified atrial fibrillation; M62.82 Rhabdomyolysis; N10 Acute pyelonephritis; E87.2 Acidosis; E87.5 Hyperkalemia; I10 Essential (primary) hypertension; E86.0 Dehydration; E78.5 Hyperlipidemia, unspecified; I25.10 Atherosclerotic heart disease of native coronary artery without angina pectoris; R29.6 Repeated falls; H91.90 Unspecified hearing loss, unspecified ear; F03.90 Unspecified dementia, unspecified severity, without behavioral disturbance, psychotic disturbance, mood disturbance, and anxiety; Z51.5 Encounter for palliative care; Z66 Do not resuscitate; Z85.46 Personal history of malignant neoplasm of prostate; Z92.21 Personal history of antineoplastic chemotherapy; Z92.3 Personal history of irradiation; Z86.73 Personal history of transient ischemic attack (TIA), and cerebral infarction without residual deficits
CPT/HCPCS: 36600; 70450; 71010; 80048; 80053; 80164; 80170; 80307; 81001; 82140; 82550; 82552; 82565; 82805; 83605; 83735; 84100; 84132; 84484; 85025; 85610; 85730; 87040; 87070; 87077; 87086; 87186; 87205; 87641; 93005; 94002; 94003; 94640; 96361; 96365; 96375; J0153; J0360; J0692; J1580; J2060; J2270; J2543; J3010; J3370; J3480; J7030; J7050; J7070